=== PATIENT | female | born 1970 | race Caucasian/White ===

== ENCOUNTER 2016-09-14 07:54 | Emergency (ER) | payer OTHER ==
[2016-09-14 08:04] VITALS: BMI 22.0
--- NOTE | 2016-09-14 08:38 | PDOC ---
History of Present Illness - General Chief Complaint: Injury Stated Complaint: fall Time Seen by Provider: 09/14/16 07:57 History Source: Patient Exam Limitations: No Limitations - History of Present Illness Initial Comments: 09/14/16 08:37 46 year old female with past medical history of hypertension, borderline personality disorder, ADHD, polysubstance abuse including alcohol and cocaine brought in by EMS after a bystander called 911 for intoxication. [place]stander [place]. The patient appeared intoxicated. There was question whether the patient fell but the patient insists that she did not fall. However patient does endorse to me that she drink alcohol but cannot specify the amount. Patient is cooperative denies symptoms at this time. Past History - Past Medical History Allergies/Adverse Reactions: Allergies Allergy/AdvReac Type Severity Reaction Status Date / Time clarithromycin [From Biaxin] Allergy Verified 09/14/16 07:58 Home Medications: Ambulatory Orders Amlodipine Besylate [Norvasc -] 5 mg PO DAILY #30 tablet 06/20/14 Metoprolol Tartrate [Lopressor -] 25 mg PO BID #60 tablet 06/20/14 Thiamine HCl [Vitamin B1 -] 100 mg PO HS #30 tablet 06/20/14 Albuterol Sulfate Inhaler - [Ventolin Hfa Inhaler -] 2 inh PO Q4H 11/16/15 Alprazolam [Xanax] 0.25 mg PO BID 11/16/15 Dextroamphetamine/Amphetamine [Adderall 10 mg Tablet] 20 mg PO BID 11/16/15 Zolpidem Tartrate [Ambien] 10 mg PO HS #14 tablet MDD 10 11/17/15 Anemia: Yes Asthma: Yes Cancer: No Cardiac Disorders: No CVA: No COPD: No CHF: No Dementia: No Diabetes: No GI Disorders: No Disorders: No HTN: Yes (no med) Hypercholesterolemia: No Kidney Stones: No Liver Disease: No Suicide Attempt (Hx): No Seizures: Yes (June 2009 ([facility] Thyroid Disease: No - Surgical History Abdominal Surgery: Yes (ectopic rght in 1992 at [facility]) Appendectomy: No Cardiac Surgery: No Cholecystectomy: No Lung Surgery: No Neurologic Surgery: No Orthopedic Surgery: No - Immunization History Immunization Up to Date: Yes - Psycho/Social/Smoking Cessation Hx Anxiety: No Suicidal Ideation: No Smoking Status: No Smoking History: Current every day smoker Have you smoked in the past 12 months: Yes Number of Cigarettes Smoked Daily: 0 If you are a former smoker, when did you quit?: 5 years ago. Information on smoking cessation initiated: No 'Breaking Loose' booklet given: 06/16/14 Hx Alcohol Use: No Drug/Substance Use Hx: No Substance Use Type: Alcohol Hx Substance Use Treatment: Yes (DETOX) Review of Systems - Review of Systems Able to Perform ROS?: Yes Comments:: 09/14/16 08:37 GENERAL/CONSTITUTIONAL: No fever, weakness. +intoxication HEAD, EYES, EARS, NOSE AND THROAT: No change in vision. No ear pain or discharge. No sore throat. CARDIOVASCULAR: No chest pain or shortness of breath. RESPIRATORY: No cough, wheezing, or hemoptysis. GASTROINTESTINAL: No abdominal pain, nausea, vomiting, diarrhea, or decreased PO intolerance. GENITOURINARY: No dysuria, frequency, or change in urination. MUSCULOSKELETAL: No joint or muscle swelling or pain. No neck or back pain. SKIN: No rash NEUROLOGIC: No headache, vertigo, loss of consciousness, or change in strength/ sensation. ENDOCRINE: No increased thirst. No abnormal weight change. HEMATOLOGIC/LYMPHATIC: No anemia, easy bleeding, or history of blood clots. ALLERGIC/IMMUNOLOGIC: No hives or skin allergy. *Physical Exam - Vital Signs Last Vital Signs Temp Pulse Resp BP Pulse Ox 97.7 F 107 H 18 120/89 97 09/14/16 07:55 09/14/16 08:16 09/14/16 08:16 09/14/16 08:16 09/14/16 08:16 - Physical Exam Comments: 09/14/16 08:37 GENERAL: no acute distress. +intoxicated. +alcohol on breath. HEAD: No signs of trauma EYES: PERRLA, EOMI, sclera anicteric, conjunctiva clear ENT: Auricles normal inspection, hearing grossly normal, nares patent, oropharynx clear without exudates. NECK: Normal ROM, supple, no lymphadenopathy, JVD, or masses LUNGS: Breath sounds equal, clear to auscultation bilaterally. No wheezes, and no crackles HEART: Regular rate and rhythm, normal S1 and S2, no murmurs, rubs or gallops ABDOMEN: Soft, nontender, normoactive bowel sounds. No guarding, no rebound. No masses EXTREMITIES: Normal range of motion, no edema. No clubbing or cyanosis. No cords, erythema, or tenderness NEUROLOGICAL: Cranial nerves II through XII grossly intact. +mildly slurred speech SKIN: Warm, Dry, normal turgor, no rashes or lesions noted. ED Treatment Course - LABORATORY CBC & Chemistry Diagram: 09/14/16 09:50 09/14/16 09:50 Medical Decision Making - Medical Decision Making 09/14/16 08:38 Vital Signs Temp Pulse Resp BP Pulse Ox 97.7 F 107 H 18 120/89 97 09/14/16 07:55 09/14/16 08:16 09/14/16 08:16 09/14/16 08:16 09/14/16 08:16 The patient is clinically alcohol intoxicated. Her physical exam demonstrates no acute trauma or injury at this time. We'll let the patient sober up and reassess. Patient is sober and has no complaints and can ambulate, patient can be discharged home. 09/14/16 15:51 CBC, BMP 09/14/16 09:50 09/14/16 09:50 CMP Sodium 138 mmol/L (136-145) 09/14/16 09:50 Potassium 3.1 mmol/L (3.5-5.1) L 09/14/16 09:50 Chloride 98 mmol/L (98-107) 09/14/16 09:50 Carbon Dioxide 28 mmol/L (22-28) 09/14/16 09:50 Anion Gap 12 (8-16) 09/14/16 09:50 BUN 15 mg/dl (7-18) D 09/14/16 09:50 Creatinine 0.5 mg/dl (0.6-1.3) L 09/14/16 09:50 Creat Clearance w eGFR > 60 (>60) 09/14/16 09:50 Random Glucose 107 mg/dl (74-106) H 09/14/16 09:50 Calcium 8.6 mg/dl (8.4-10.2) 09/14/16 09:50 Total Bilirubin 0.4 mg/dl (0.2-1.0) D 09/14/16 09:50 AST 193 U/L (10-42) H D 09/14/16 09:50 ALT 70 U/L (10-40) H D 09/14/16 09:50 Alkaline Phosphatase 84 U/L (32-92) 09/14/16 09:50 Total Protein 6.3 g/dl (6.4-8.3) L 09/14/16 09:50 Albumin 3.7 g/dl (3.5-5.0) 09/14/16 09:50 Pt given potassium. Alcohol level elevated high 300s. Pt has been observed for 8 hours and is now clinically sober and ambulates. Pt counselled regarding her liver function enzymes which is likely secondary to alcohol. Alcohol cessation counselled. The patient is now steady and on her feet. Will d/c home with PMD follow up. Pt denies any pain or injuries at this time. *DC/Admit/Observation/Transfer Diagnosis at time of Disposition: Alcohol intoxication Qualifiers: Complication of substance-induced condition: uncomplicated Qualified Code(s): F10.920 - Alcohol use, unspecified with intoxication, uncomplicated - Discharge Dispostion Disposition: HOME Condition at time of disposition: Improved Admit: No - Patient Instructions Printed Discharge Instructions: DI for Alcohol Abuse Additional Instructions: Your blood work is starting to show some liver problems from alcohol. Please try to minimize your alcohol drinking. Follow up with your doctor.
[2016-09-14] MEDS ORDERED: LORAZEPAM CARPU-JECT 2 MG/ML DISP.SYRIN IVPUSH ONE (09:41)
[2016-09-14] MEDS ORDERED: FOLIC ACID INJECTION - 1 MG, THIAMINE HCL 100 MG, MULTIVIT INJECTION ADULT 10 ML in SOD... IVPB ONE (09:41)
[2016-09-14] MEDS ORDERED: LORAZEPAM CARPU-JECT 2 MG/ML DISP.SYRIN ONE (09:57)
[2016-09-14 10:31] LABS: BASOPHIL 1.4 % (0-2.0); EOSINOPHIL 1.9 % (0-4.5); MCH 39.7 pg (25.7-33.7); MCHC 36.9 g/dl (32.0-36.0); MEAN CELL VOLUME 107.5 fl (80-96); MEAN PLT VOLUME 6.6 fl (7.5-11.1); NEUTROPHILS 39.4 % (42.8-82.8); PLATELET COUNT 149 K/MM3 (134-434); RDW 15.9 % (11.6-15.6); WHITE BLOOD COUNT 4.1 K/mm3 (4.0-10.8)
[2016-09-14 10:38] LABS: ALBUMIN 3.7 g/dl (3.5-5.0); ALK PHOS 84 U/L (32-92); ANION GAP 12 (8-16); BILIRUBIN,TOTAL 0.4 mg/dl (0.2-1.0); CALCIUM 8.6 mg/dl (8.4-10.2); CO2 28 mmol/L (22-28); CREATININE 0.5 mg/dl (0.6-1.3); GLUCOSE,RANDOM 107 mg/dl (74-106); SGOT/AST 193 U/L (10-42); SGPT/ALT 70 U/L (10-40); TOT PROT 6.3 g/dl (6.4-8.3)
[2016-09-14 10:51] LABS: PH,URINE 6.5 (4.5-8); URINE APPEARANCE Clear; URINE BILIRUBIN Negative (NEGATIVE); URINE BLOOD Negative (NEGATIVE); URINE GLUCOSE (UA) Negative (NEGATIVE); URINE KETONE Negative (NEGATIVE); URINE LEUK ESTERASE Negative (NEGATIVE); URINE NITRITE Negative (NEGATIVE); URINE PROTEIN Negative (NEGATIVE); URINE UROBILINOGEN 0.2 E.U/dl (0.2-1.0)
[2016-09-14 10:54] LABS: URINE COLOR YELLOW
[2016-09-14] MEDS ORDERED: POTASSIUM CHLORIDE TABS 20 MEQ TABLET.ER (FP) PO ONE ×2 (11:13→11:28)
[2016-09-14 11:58] LABS: URINE MARIJUANA THC NEGATIVE ng/ml (CUTOFF=50)
[2016-09-14 13:46] VITALS: TEMP 98.3
[2016-09-14 16:22] VITALS: BP 116/80; PULSE 100
--- NOTE | 2016-09-15 08:30 | EKG ---
Test Reason : Blood Pressure : / mmHG Vent. Rate : 098 BPM Atrial Rate : 098 BPM P-R Int : 172 ms QRS Dur : 088 ms QT Int : 382 ms P-R-T Axes : 054 055 062 degrees QTc Int : 487 ms NORMAL SINUS RHYTHM MINIMAL VOLTAGE CRITERIA FOR LVH, MAY BE NORMAL VARIANT PROLONGED QT ABNORMAL ECG WHEN COMPARED WITH ECG OF 16-JUN-2014 01:09, NO SIGNIFICANT CHANGE WAS FOUND Confirmed by NETTA ENAMORADO MD ([id number]) on 09/15/2016 8:30:18 AM Referred By: BETH FULTON Confirmed By:NETTA ENAMORADO MD
== END 2016-09-14 16:20 | disposition home or self-care (01) ==
LOC: FER 07:54
PROC: 3E033GC Introduction of Other Therapeutic Substance into Peripheral Vein, Percutaneous Approach (ICD-10-PCS; principal; 2016-09-14)
PROC: 3E033NZ Introduction of Analgesics, Hypnotics, Sedatives into Peripheral Vein, Percutaneous Approach (ICD-10-PCS; 2016-09-14)
DX: F10.920 Alcohol use, unspecified with intoxication, uncomplicated (principal); I10 Essential (primary) hypertension; F60.3 Borderline personality disorder; F90.9 Attention-deficit hyperactivity disorder, unspecified type; F19.10 Other psychoactive substance abuse, uncomplicated; J45.909 Unspecified asthma, uncomplicated
CPT/HCPCS: 36415; 80053; 80307; 81003; 85025; 93005; 96365; 96375; 99284-25

== ENCOUNTER 2016-10-11 18:49 | Emergency (ER) | payer OTHER ==
[2016-10-11 19:06] VITALS: BMI 17.2
--- NOTE | 2016-10-11 19:41 | PDOC ---
Attending Attestation - Resident Resident Name: Get Mckeon - HPI HPI: 10/11/16 19:40 46 yo female sent from [facility] detox because they were concerned about her reported vomiting and possible alcohol withdrawal 10/11/16 21:24 - Physicial Exam PE: 10/11/16 21:26 46 yo female sent from [facility] for tx for vomiting. History of alcoholism HEENT no scalp lacerations.no ecchymosis lungs cta b/l cvs tachycardia abd flat ext old bruising to rt [place] neuro alert and conversant,ambulatory - Medical Decision Making 10/11/16 21:28 IMP alcohol abuse,vomiting. [facility] note states that they had no female beds tonight plan IVF,banana bag/labs
[2016-10-11] MEDS ORDERED: FOLIC ACID INJECTION - 1 MG, THIAMINE HCL 100 MG, MULTIVIT INJECTION ADULT 10 ML in SOD... IVPB ONE (20:04)
--- NOTE | 2016-10-11 20:17 | PDOC ---
History of Present Illness - General Chief Complaint: Alcohol intoxication Stated Complaint: ALCHOHOL WITHDRAWL Time Seen by Provider: 10/11/16 19:42 History Source: Patient Exam Limitations: No Limitations - History of Present Illness Initial Comments: 10/11/16 20:12 Patient is a 46 F with a PMH of HTN, borderline personality disorder, ADHD, and polysubstance abuse who presents to the ED with complaints of alcohol withdrawal. The patient states that she drank half a glass of wine today and threw it up. She also drank 2 glasses of wine Tuesday and threw that up. She states that the last drink she has had without throwing up was half a liter of vodka on Tuesday. She also states that she has not eaten since Tuesday. She says she has a place to go home to [facility]. Patient has NBNB vomitus and has no blood in her stool. She also is complaining of diffuse cramps. Allergies: clarithromycin, seasonal Social: Does not smoke or use recreational drugs. She is an alcoholic Surgeries: ectopic 10 years ago Past History - Past Medical History Allergies/Adverse Reactions: Allergies Allergy/AdvReac Type Severity Reaction Status Date / Time clarithromycin [From Biaxin] Allergy Verified 10/11/16 19:06 Home Medications: Ambulatory Orders Amlodipine Besylate [Norvasc -] 5 mg PO DAILY #30 tablet 06/20/14 Metoprolol Tartrate [Lopressor -] 25 mg PO BID #60 tablet 06/20/14 Thiamine HCl [Vitamin B1 -] 100 mg PO HS #30 tablet 06/20/14 Albuterol Sulfate Inhaler - [Ventolin Hfa Inhaler -] 2 inh PO Q4H 11/16/15 Alprazolam [Xanax] 0.25 mg PO BID 11/16/15 Dextroamphetamine/Amphetamine [Adderall 10 mg Tablet] 20 mg PO BID 11/16/15 Zolpidem Tartrate [Ambien] 10 mg PO HS #14 tablet MDD 10 11/17/15 Anemia: Yes Asthma: Yes Cancer: No Cardiac Disorders: No CVA: No COPD: No CHF: No Dementia: No Diabetes: No GI Disorders: No Disorders: No HTN: Yes (no med) Hypercholesterolemia: No Kidney Stones: No Liver Disease: No Suicide Attempt (Hx): No Seizures: Yes (June 2009 ([facility])) Thyroid Disease: No - Surgical History Abdominal Surgery: Yes (ectopic rght in 1992 at [facility]) Appendectomy: No Cardiac Surgery: No Cholecystectomy: No Lung Surgery: No Neurologic Surgery: No Orthopedic Surgery: No - Immunization History Immunization Up to Date: Yes - Psycho/Social/Smoking Cessation Hx Anxiety: No Suicidal Ideation: No Smoking Status: No Smoking History: Never smoked Have you smoked in the past 12 months: No Number of Cigarettes Smoked Daily: 0 If you are a former smoker, when did you quit?: 5 years ago. Information on smoking cessation initiated: No 'Breaking Loose' booklet given: 06/16/14 Hx Alcohol Use: No Drug/Substance Use Hx: No Substance Use Type: Alcohol Hx Substance Use Treatment: Yes (DETOX) Review of Systems - Review of Systems Able to Perform ROS?: Yes Is the patient limited Thai proficient: No Constitutional: Yes: Chills, Weakness. No: Fever Respiratory: No: Shortness of Breath Cardiac (ROS): No: Chest Pain ABD/GI: Yes: Nausea, Vomiting Neurological: No: Headache, Numbness, Tingling *Physical Exam - Vital Signs Last Vital Signs Temp Pulse Resp BP Pulse Ox 98.6 F 118 H 22 125/94 100 10/11/16 19:01 10/11/16 19:01 10/11/16 19:01 10/11/16 19:01 10/11/16 19:01 - Physical Exam General Appearance: Yes: Nourished, Mild Distress Respiratory/Chest: positive: Lungs Clear, Normal Breath Sounds. negative: Chest Tender, Accessory Muscle Use Cardiovascular: positive: Regular Rhythm, S1, S2, Tachycardia Gastrointestinal/Abdominal: positive: Flat, Soft. negative: Tender Integumentary: positive: Dry, Warm Neurologic: positive: Normal Mood/Affect, Motor Strength 5/5 ED Treatment Course - LABORATORY CBC & Chemistry Diagram: 10/11/16 21:12 10/12/16 00:20 Medical Decision Making - Medical Decision Making 10/11/16 20:18 Patient is a 46F with a PMH of alcoholism, HTN, polysubstance abuse who presents with weakness and vomiting. I have ordered a CBC, CMP, and a banana bag. I will monitor for results and update patient. I have attempted a food and liquid PO challenge. The patient states that she can't eat but she's drinking the apple juice with no problem. 10/12/16 00:15 Patient remains tachycardic in 110-120. However, looking back at previous charts , the patient has been like this for the past few years. I will repeat labs and monitor patient clinically. 10/12/16 06:47 Patient signed out to day team. Pending 8 am phone call for detox facility. *DC/Admit/Observation/Transfer Diagnosis at time of Disposition: Alcohol withdrawal Qualifiers: Complication of substance-induced condition: uncomplicated Qualified Code(s): F10.230 - Alcohol dependence with withdrawal, uncomplicated - Discharge Dispostion Condition at time of disposition: Stable
[2016-10-11] MEDS ORDERED: chlordiazePOXIDE HCL 25 MG CAPSULE PO ONE (21:12)
[2016-10-11 21:18] LABS: MCH 36.5 pg (25.7-33.7); MCHC 33.2 g/dl (32.0-36.0); MEAN CELL VOLUME 109.9 fl (80-96); MEAN PLT VOLUME 7.8 fl (7.5-11.1); RDW 15.1 % (11.6-15.6); WHITE BLOOD COUNT 8.3 K/mm3 (4.0-10.0)
[2016-10-11] MEDS ORDERED: chlordiazePOXIDE HCL 25 MG CAPSULE ONE ×2 (21:48→21:49)
[2016-10-11 21:52] LABS: ALBUMIN 4.7 g/dl (3.4-5.0); ALK PHOS 105 U/L (45-117); ANION GAP 24 (8-16); BILIRUBIN,TOTAL 1.7 mg/dL (0.2-1.0); CALCIUM 7.5 mg/dL (8.5-10.1); CO2 14 mmol/L (21-32); CREATININE 1.3 mg/dL (0.55-1.02); GLUCOSE,RANDOM 112 mg/dL (74-106); SGOT/AST 157 U/L (15-37); SGPT/ALT 68 U/L (12-78); TOT PROT 9.3 g/dl (6.4-8.2)
[2016-10-11] MEDS ORDERED: SODIUM CHLORIDE 0.9% 1000 ML INFUS.BAG IV ONE (21:57)
[2016-10-11] MEDS ORDERED: MAGNESIUM SULF 50% (8.12 MEQ/2 ML-1 GM VIAL) IVPB ONE (21:58)
[2016-10-11 22:13] LABS: ANISOCYTOSIS 2+; PLATELET COMMENT2 RARE GIANT PLTS; PLATELET COUNT 81 K/MM3 (134-434); PLATELET ESTIMATE DECREASED (NORMAL)
[2016-10-12 01:10] LABS: ALBUMIN 3.8 g/dl (3.4-5.0); ANION GAP 21 (8-16); BILIRUBIN,TOTAL 1.4 mg/dL (0.2-1.0); CO2 15 mmol/L (21-32); GLUCOSE,RANDOM 86 mg/dL (74-106); SGOT/AST 125 U/L (15-37); SGPT/ALT 55 U/L (12-78); TOT PROT 7.4 g/dl (6.4-8.2)
[2016-10-12 01:11] LABS: ALK PHOS 86 U/L (45-117)
[2016-10-12 01:15] LABS: CALCIUM 6.4 mg/dL (8.5-10.1)
[2016-10-12] MEDS ORDERED: POTASSIUM CHLORIDE TABS 20 MEQ TABLET.ER (FP) PO ONE ×2 (01:17→03:19)
[2016-10-12] MEDS ORDERED: CALCIUM GLUCONATE 10% - 1,000 MG/10 ML VIAL IVPB ONE (02:30)
[2016-10-12] MEDS ORDERED: CALCIUM GLUCONATE 10% - 1,000 MG/10 ML VIAL ONE (03:19)
--- NOTE | 2016-10-12 03:38 | PDOC ---
*Physical Exam - Vital Signs Last Vital Signs Temp Pulse Resp BP Pulse Ox 99.2 F 118 H 22 135/89 100 10/11/16 21:54 10/11/16 21:54 10/11/16 21:54 10/11/16 22:49 10/11/16 21:54 ED Treatment Course - LABORATORY CBC & Chemistry Diagram: 10/11/16 21:12 10/12/16 00:20 - ADDITIONAL ORDERS Additional order review: Laboratory Results 10/12/16 10/11/16 10/11/16 00:20 23:00 21:12 Sodium 134 L 129 L Potassium 3.2 L 3.5 D Chloride 98 91 L Carbon Dioxide 15 L 14 L D Anion Gap 21 H 24 H BUN 7 8 D Creatinine 1.0 D 1.3 H D Creat Clearance w eGFR 59.96 44.29 Random Glucose 86 D 112 H Calcium 6.4 L* 7.5 L Magnesium 1.0 L D Total Bilirubin 1.4 H 1.7 H D AST 125 H D 157 H ALT 55 68 D Alkaline Phosphatase 86 105 D Total Protein 7.4 D 9.3 H D Albumin 3.8 4.7 D Lipase 365 10/11/16 21:12 RBC 3.21 L MCV 109.9 H MCHC 33.2 RDW 15.1 MPV 7.8 - Medications Given in the ED: ED Medications Discontinued Medications Generic Name Dose Route Start Last Admin Trade Name Neoq PRN Reason Stop Dose Admin Calcium Gluconate 1,000 mg 10/12/16 02:30 10/12/16 03:18 Calcium Gluconate 10% - IVPB 10/12/16 02:31 1,000 mg ONCE ONE Administration Chlordiazepoxide HCl 50 mg 10/11/16 21:12 10/11/16 21:48 Librium - PO 10/11/16 21:13 50 mg ONCE ONE Administration Magnesium Sulfate 2 gm 10/11/16 21:58 10/11/16 22:25 Magnesium Sulfate IVPB 10/11/16 21:59 2 gm ONCE ONE Administration Potassium Chloride 40 meq 10/12/16 01:17 10/12/16 03:22 K-Dur - PO 10/12/16 01:18 40 meq ONCE ONE Administration Sodium Chloride 1,000 ml 10/11/16 21:57 10/11/16 22:12 Normal Saline - IV 10/11/16 21:58 1,000 ml ONCE ONE Administration Medical Decision Making - Medical Decision Making Pt endorsed to me by Dr. Lynne at 2am shift change. No beds available in [facility] at present. Will d/w case management in the morning. Also of note, patient with tachycardia that has been long-standing on many prior visits. *DC/Admit/Observation/Transfer Diagnosis at time of Disposition: Alcohol use with intoxication, Alcohol dependence with uncomplicated withdrawal Cocaine dependence Qualifiers: Substance use status: uncomplicated Qualified Code(s): F14.20 - Cocaine dependence, uncomplicated - Discharge Dispostion Condition at time of disposition: Stable
--- NOTE | 2016-10-12 06:54 | PDOC ---
*Physical Exam - Vital Signs Last Vital Signs Temp Pulse Resp BP Pulse Ox 99.2 F 113 H 14 135/89 99 10/11/16 21:54 10/12/16 05:39 10/12/16 05:39 10/11/16 22:49 10/12/16 05:39 - Physical Exam Comments: 10/12/16 06:56 General Appearance: Nourished. No Apparent Distress Respiratory/Chest: Lungs Clear, Normal Breath Sounds. No Crackles, Rales, Rhonchi, Wheezing Cardiovascular: Regular Rhythm, Tachycardia. No Murmur, Gallop/S3, Gallop/S4 Gastrointestinal/Abdominal: Normal Bowel Sounds, Soft. No Guarding, Rebound, Tenderness Extremity: Normal Capillary Refill Integumentary: Normal Color, Dry, Warm Neurologic: Fully Oriented, Alert, Normal Mood/Affect, Normal Response ED Treatment Course - LABORATORY CBC & Chemistry Diagram: 10/11/16 21:12 10/12/16 08:40 - ADDITIONAL ORDERS Additional order review: Laboratory Results 10/12/16 10/11/16 10/11/16 00:20 23:00 21:12 Sodium 134 L 129 L Potassium 3.2 L 3.5 D Chloride 98 91 L Carbon Dioxide 15 L 14 L D Anion Gap 21 H 24 H BUN 7 8 D Creatinine 1.0 D 1.3 H D Creat Clearance w eGFR 59.96 44.29 Random Glucose 86 D 112 H Calcium 6.4 L* 7.5 L Magnesium 1.0 L D Total Bilirubin 1.4 H 1.7 H D AST 125 H D 157 H ALT 55 68 D Alkaline Phosphatase 86 105 D Total Protein 7.4 D 9.3 H D Albumin 3.8 4.7 D Lipase 365 10/11/16 21:12 RBC 3.21 L MCV 109.9 H MCHC 33.2 RDW 15.1 MPV 7.8 - Medications Given in the ED: ED Medications Discontinued Medications Generic Name Dose Route Start Last Admin Trade Name Freq PRN Reason Stop Dose Admin Calcium Gluconate 1,000 mg 10/12/16 02:30 10/12/16 03:18 Calcium Gluconate 10% - IVPB 10/12/16 02:31 1,000 mg ONCE ONE Administration Chlordiazepoxide HCl 50 mg 10/11/16 21:12 10/11/16 21:48 Librium - PO 10/11/16 21:13 50 mg ONCE ONE Administration Folic Acid 1 mg/ Thiamine HCl 1,000 mls @ 125 mls/hr 10/11/16 20:04 10/11/16 21 :10 100 mg/ Multivitamins/Minerals IVPB 10/12/16 04:03 125 mls/hr 10 ml/ Sodium Chloride ONCE ONE Administration Magnesium Sulfate 2 gm 10/11/16 21:58 10/11/16 22:25 Magnesium Sulfate IVPB 10/11/16 21:59 2 gm ONCE ONE Administration Potassium Chloride 40 meq 10/12/16 01:17 10/12/16 03:22 K-Dur - PO 10/12/16 01:18 40 meq ONCE ONE Administration Sodium Chloride 1,000 ml 10/11/16 21:57 10/11/16 22:12 Normal Saline - IV 10/11/16 21:58 1,000 ml ONCE ONE Administration Progress Note - Progress Note Progress Note: Received sign out from Dr. Mckeon. Patient is a 46 year old female with a history of alcoholism who presents for alcoholic detox. Patient is currently stable pending call to [facility] at 8am for transfer. Medical Decision Making - Medical Decision Making 10/12/16 07:37 CMP demonstrated a low calcium of 6.4. We will recheck a cmp to confirm. 10/12/16 13:07 Patient's repeat cmp demonstrated a calcium of 7.0. We feel comfortable with discharging the patient to a detox facility. Discussed the patient with Dr. Manuel and the patient was accepted to [facility]. *DC/Admit/Observation/Transfer Diagnosis at time of Disposition: Alcohol withdrawal Qualifiers: Complication of substance-induced condition: uncomplicated Qualified Code(s): F10.230 - Alcohol dependence with withdrawal, uncomplicated - Discharge Dispostion Disposition: HOME Condition at time of disposition: Stable - Patient Instructions Printed Discharge Instructions: DI for Alcohol Abuse Additional Instructions: We will be discharging you for immediate transfer to [facility] for further Detox treatment. Return to the ER if you experience worsening symptoms. - Attestations Physician Attestion: 10/12/16 10:49 I, Dr. Guero Ortez, attest that this document has been prepared under my direction and personally reviewed by me in its entirety. I further attest, that it accurately reflects all work, treatment, procedures and medical decision -making performed by me.
[2016-10-12 09:24] LABS: ALBUMIN 3.8 g/dl (3.4-5.0); ANION GAP 13 (8-16); BILIRUBIN,TOTAL 1.4 mg/dL (0.2-1.0); CO2 23 mmol/L (21-32); CREATININE 0.9 mg/dL (0.55-1.02); GLUCOSE,RANDOM 96 mg/dL (74-106); SGOT/AST 108 U/L (15-37); SGPT/ALT 50 U/L (12-78); TOT PROT 7.6 g/dl (6.4-8.2)
[2016-10-12 09:25] LABS: ALK PHOS 87 U/L (45-117)
[2016-10-12] MEDS ORDERED: CALCIUM CARBONATE 650 MG TABLET PO SCH (10:00)
[2016-10-12 10:59] VITALS: BP 130/91; PULSE 104; TEMP 97.6
== END 2016-10-12 11:02 | disposition other institution (70) ==
LOC: JER 18:49
PROC: 3E0337Z Introduction of Electrolytic and Water Balance Substance into Peripheral Vein, Percutaneous Approach (ICD-10-PCS; principal; 2016-10-11)
PROC: 3E033GC Introduction of Other Therapeutic Substance into Peripheral Vein, Percutaneous Approach (ICD-10-PCS; 2016-10-11)
DX: F10.230 Alcohol dependence with withdrawal, uncomplicated (principal); F14.20 Cocaine dependence, uncomplicated; I10 Essential (primary) hypertension; G40.909 Epilepsy, unspecified, not intractable, without status epilepticus; E83.51 Hypocalcemia
CPT/HCPCS: 36415; 80053; 83690; 83735; 85027; 96360; 96361; 96374; 99285-25

== ENCOUNTER 2016-10-12 11:18 | Inpatient (IN) | payer OTHER ==
[2016-10-12 13:09] VITALS: BMI 17.2
--- NOTE | 2016-10-12 15:37 | HP ---
CIWA Score - CIWA Score Nausea/Vomitin Muscle Tremors: 3 Anxiety: 3 Agitation: 3 Paroxysmal Sweats: 1-Minimal Palms Moist Orientation: 0-Oriented Tacttile Disturbances: 2-Mild Itch/Numbness/Burn Auditory Disturbances: 2-Mild Harshness/Frighten Visual Disturbances: 2-Mild Sensitivity Headache: 2-Mild CIWA-Ar Total Score: 21 Admission ROS BHS - HPI Chief Complaint: i need help to stop drinking alcohol Allergies/Adverse Reactions: Allergies Allergy/AdvReac Type Severity Reaction Status Date / Time clarithromycin [From Biaxin] Allergy Verified 10/12/16 15:26 History of Present Illness: this 46 years old female with alcohol dependence ,seeking help to stop drinking alcohol,last treatment rehab in [facility] in 02/10 multiple admissions in detox but keep relapsing last seizure 3 weeks ago admitted for 1 day with head injury longest period of sobriety 9 months - Ebola screening Have you traveled outside of the country in the last 21 days: No Have you had contact with anyone from an Ebola affected area: No Have you been sick,other than usual withdrawal symptoms: No - Review of Systems Constitutional: Loss of Appetite, Malaise, Night Sweats, Changes in sleep, Weakness, Unintentional Wgt. Loss EENT: reports: Nose Congestion Respiratory: reports: No Symptoms reported Cardiac: reports: Palpitations GI: reports: Diarrhea, Nausea, Vomiting, Abdominal cramping : reports: No Symptoms Reported Musculoskeletal: reports: Back Pain, Muscle Pain Integumentary: reports: Dryness Neuro: reports: Headache, Tremors Endocrine: reports: No Symptoms Reported Hematology: reports: No Symptoms Reported Psychiatric: reports: Anxious Patient History - Patient Medical History Hx Anemia: Yes (no iron) Hx Asthma: Yes (on albuterol inhaler) Hx Chronic Obstructive Pulmonary Disease (COPD): No Hx Cancer: No Hx Cardiac Disorders: No Hx Congestive Heart Failure: No Hx Hypertension: Yes (no med) Hx Hypercholesterolemia: No Hx Pacemaker: No HX Cerebrovascular Accident: No Hx Seizures: Yes (last 3 weeks ago) Hx Dementia: No Hx Diabetes: No Hx Gastrointestinal Disorders: No Hx Liver Disease: No Hx Genitourinary Disorders: No Hx Sexually Transmitted Disorders: No Hx Renal Disease (ESRD): No Hx Thyroid Disease: No Hx Human Immunodeficiency Virus (HIV): No (04/13 negative) Hx Hepatitis C: No Hx Depression: Yes (anxiety,) Hx Suicide Attempt: No Hx Bipolar Disorder: No Hx Schizophrenia: No Other Medical History: no suicidal,no homicidal - Patient Surgical History Past Surgical History: Yes Hx Neurologic Surgery: No Hx Cataract Extraction: No Hx Cardiac Surgery: No Hx Lung Surgery: No Hx Breast Surgery: No Hx Breast Biopsy: No Hx Abdominal Surgery: Yes (ectopic rght in 1992 at [facility]) Hx Appendectomy: No Hx Cholecystectomy: No Hx Genitourinary Surgery: No Hx Section: No Hx Orthopedic Surgery: No Hx Hysterectomy: No Anesthesia Reaction: No - PPD History Previous Implant?: Yes Documented Results: Negative w/proof Implanted On Prior [facility] Admission?: Yes Date: 06/18/14 PPD to be Administered?: Yes - Reproductive History Patient is a Female of Child Bearing Age (11 -55 yrs old): Yes Last Menstrual Period: 10/09/16 Patient : No - Smoking Cessation Smoking history: Never smoked Have you smoked in the past 12 months: No Aproximately how many cigarettes per day: 0 If you are a former smoker, when did you quit?: 5 years ago. Hx Chewing Tobacco Use: No - Substance & Tx. History Hx Alcohol Use: Yes Hx Substance Use: No Substance Use Type: Alcohol Hx Substance Use Treatment: Yes ([facility] in 02/10) - Substances Abused Alcohol Route: Oral Frequency: Daily Amount used: 1/2 LITER VODKA OR RUM Age of first use: 13 Date of Last Use: 10/12/16 Family Disease History - Family Disease History Family Disease History: CA: Mother (alcohol,,BREAST & OVARIAN), Other: Father (alcohol,), Mother, Brother (alcohol) Admission Physical Exam S - Vital Signs Vital Signs: Vital Signs - 24 hr 10/12/16 13:06 Temperature 99.0 F Pulse Rate 113 H Respiratory 18 Rate Blood Pressure 143/99 - Physical General Appearance: Yes: Moderate Distress, Tremorous, Irritable, Sweating, Anxious HEENTM: Yes: Normal ENT Inspection, Normocephalic, MICHAEL, Pharynx Normal Respiratory: Yes: Within Normal Limits, Lungs Clear, Normal Breath Sounds Neck: Yes: Within Normal Limits Breast: Yes: Breast Exam Deferred Cardiology: Yes: Within Normal Limits, Regular Rhythm, Regular Rate, S1, S2 Abdominal: Yes: Within Normal Limits, Normal Bowel Sounds, Non Tender, Flat, Soft Genitourinary: Yes: Within Normal Limits Back: Yes: Muscle Spasm Musculoskeletal: Yes: Back pain, Muscle Pain Extremities: Yes: Tremors Neurological: Yes: hand binder 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 II-XII NML intact, Fully Oriented, Alert, Motor Strength 5/5 Integumentary: Yes: Dry Lymphatic: Yes: Within Normal Limits - Diagnostic (1) Alcohol dependence with uncomplicated withdrawal Current Visit: Yes Status: Acute (2) Seizure Current Visit: Yes Status: Acute (3) Weight decreased Current Visit: No Status: Acute (4) Asthma Current Visit: No Status: Chronic Qualifiers: Asthma severity: mild intermittent Asthma complication type: uncomplicated Qualified Code(s): J45.20 - Mild intermittent asthma, uncomplicated (5) Syncope Current Visit: No Status: Suspected (6) ADHD (attention deficit hyperactivity disorder) Current Visit: No Status: Acute (7) Anxiety and depression Current Visit: No Status: Acute (8) Essential (primary) hypertension Current Visit: No Status: Acute Cleared for Admission S - Detox or Rehab [facility] Level of Care: Medically Managed Detox Regimen/Protocol: Librium [facility] Breath Alcohol Content Breath Alcohol Content: 0 Urine Pregancy Test - Result Urine Test Results: Negative- NO Line Present Urine Drug Screen - Results Drug Screen Negative: No Urine Drug Screen Results: BZO-Benzodiazepines
[2016-10-12] MEDS ORDERED: IBUPROFEN 400 MG TABLET (FP) PO PRN (15:48)
[2016-10-12] MEDS ORDERED: hydrOXYzine PAMOATE 25 MG CAPSULE (FP) PO PRN (15:48)
[2016-10-12] MEDS ORDERED: P-EPHED 60MG/TRIPROLIDI 2.5MG TABLET PO PRN (15:48)
[2016-10-12] MEDS ORDERED: MAGNESIUM HYDROX 2400MG/30ML ORAL SUSPENSION 30 ML CUP PO PRN (15:48)
[2016-10-12] MEDS ORDERED: ACETAMINOPHEN 325 MG TABLET (FP) PO PRN (15:48)
[2016-10-12] MEDS ORDERED: LOPERAMIDE HCL 2 MG CAPSULE PO PRN (15:48)
[2016-10-12] MEDS ORDERED: MAGNESIUM CITRATE 300 ML BOTTLE PO PRN (15:48)
[2016-10-12] MEDS ORDERED: MAG HYDROX/AL HYDROX/SIMETH 30 ML UNIT-DOSE CUP PO PRN (15:48)
[2016-10-12] MEDS ORDERED: guaiFENesin/D-METHORPHAN HB 10 ML UNIT-DOSE CUPS PO PRN (15:48)
[2016-10-12] MEDS ORDERED: MENTHOL/PHENOL 1 EACH UD MM PRN (15:48)
[2016-10-12] MEDS ORDERED: ALBUTEROL SO4 6.7 GM HFA INHALER IH PRN (15:59)
[2016-10-12] MEDS ORDERED: chlordiazePOXIDE HCL 25 MG CAPSULE PO PRN (17:31)
[2016-10-12] MEDS ORDERED: chlordiazePOXIDE HCL 25 MG CAPSULE PO ONE (18:00)
[2016-10-12 19:58] LABS: URINE APPEARANCE SLCLOUDY; URINE BILIRUBIN NEGATIVE (NEGATIVE); URINE COLOR YELLOW; URINE GLUCOSE (UA) 2+ (NEGATIVE); URINE KETONE 1+ (NEGATIVE); URINE LEUK ESTERASE NEGATIVE (NEGATIVE); URINE NITRITE POSITIVE (NEGATIVE); URINE PROTEIN NEGATIVE (NEGATIVE); URINE UROBILINOGEN NEGATIVE mg/dL (0.2-1.0)
[2016-10-12 20:00] LABS: URINE BLOOD 2+ (NEGATIVE)
[2016-10-12 20:34] LABS: URINE MUCUS RARE; URINE RBC 1 /hpf (0-3); URINE WBC 4 /hpf (3-5)
[2016-10-12] MEDS: chlordiazePOXIDE HCL 25 MG CAPSULE PO SCH (22:12)
[2016-10-12] MEDS: THIAMINE HCL 100 MG TABLET (FP) PO SCH (22:12)
[2016-10-12] MEDS: diphenhydrAMINE HCL 50 MG CAPSULE PO PRN (22:14)
[2016-10-13] MEDS: chlordiazePOXIDE HCL 25 MG CAPSULE PO SCH ×4 (05:57→22:11)
--- NOTE | 2016-10-13 08:24 | CONSULT ---
[facility] Psychiatric Consult - Data Date of interview: 10/13/16 Admission source: [facility] Identifying data: This is 46 years old female with no psychiatric hospitalization history, multiple medical problems, intoxicated with: Alcohol Substance Abuse History: - Smoking Cessation. Smoking history: Never smoked. Have you smoked in the past 12 months: No. Aproximately how many cigarettes per day: 0. If you are a former smoker, when did you quit?: 5 years ago. Hx Chewing Tobacco Use: No. - Substance & Tx. History. Hx Alcohol Use: Yes. Hx Substance Use: No. Substance Use Type: Alcohol. Hx Substance Use Treatment: Yes ([facility] in 02/10) Medical History: Seizure history, Syncope hisotry, HTN, Weight loss history, Pancitopenia history, Asthma history, Psychiatric History: Patient reoports history of depression and anxiety, as per computer bthere is a history of Borderline personality disorder, reports no medications taking prior to admission Physical/Sexual Abuse/Trauma History: Denies Additional Comment: Observation. Detox Unit Care Protocol Mental Status Exam - Mental Status Exam Alert and Oriented to: Person Cognitive Function: Fair Patient Appearance: Unkempt Mood: Sad Affect: Flat Patient Behavior: Sedated Speech Pattern: Appropriate Voice Loudness: Mildly Soft/Quiet Thought Process: Circumstantial Thought Disorder: Being Controlled Hallucinations: Denies Suicidal Ideation: Denies Homicidal Ideation: Denies Insight/Judgement: Fair Sleep: Difficulty falling asleep Appetite: Weight loss Muscle strength/Tone: Mild Hypotonicity Gait/Station: Shuffling Additional Comments: Observation. Detox Unit Care Protocol Psychiatric Findings - Problem List ([facility] 1, 2,3) (1) ADHD (attention deficit hyperactivity disorder) Current Visit: No Status: Acute (2) Alcohol intoxication Current Visit: No Status: Acute Qualifiers: Complication of substance-induced condition: uncomplicated Qualified Code(s): F10.920 - Alcohol use, unspecified with intoxication, uncomplicated (3) Alcohol withdrawal Current Visit: No Status: Acute Qualifiers: Complication of substance-induced condition: uncomplicated Qualified Code(s): F10.230 - Alcohol dependence with withdrawal, uncomplicated (4) Anxiety and depression Current Visit: No Status: Acute (5) Anxiety disorder Current Visit: No Status: Acute (6) Drug-induced mood disorder Current Visit: No Status: Acute (7) Borderline personality disorder Current Visit: No Status: Suspected (8) Alcohol-induced anxiety disorder Current Visit: Yes Status: Acute (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 Detox Unit Care Protocol
--- NOTE | 2016-10-13 09:57 | PN ---
S CIWA - CIWA Score Nausea/Vomitin Muscle Tremors: 3 Anxiety: 3 Agitation: 2 Paroxysmal Sweats: 3 Orientation: 0-Oriented Tacttile Disturbances: 2-Mild Itch/Numbness/Burn Auditory Disturbances: 0-None Visual Disturbances: 0-None Headache: 0-None Present CIWA-Ar Total Score: 16 BHS Progress Note (SOAP) Subjective: interrupted sleep, sweats, shakes,dizziness Objective: 10/13/16 09:51 Vital Signs Temperature 98.1 F 10/13/16 06:32 Pulse Rate 95 H 10/13/16 06:32 Respiratory Rate 20 10/13/16 06:32 Blood Pressure 129/83 10/13/16 06:32 O2 Sat by Pulse Oximetry (%) Laboratory Tests 10/12/16 19:15 Urine Color Yellow Urine Appearance Slcloudy Urine pH 6.0 Ur Specific [place] 1.015 Urine Protein Negative Urine Glucose (UA) 2+ H Urine Ketones 1+ H Urine Blood 2+ H Urine Nitrite Positive Urine Bilirubin Negative Urine Urobilinogen Negative Ur Leukocyte Esterase Negative Urine RBC 1 Urine WBC 4 Ur Epithelial Cells Rare Urine Mucus Rare Laboratory Tests 10/12/16 19:15 Urine Color Yellow Urine Appearance Slcloudy Urine pH 6.0 Ur Specific [place] 1.015 Urine Protein Negative Urine Glucose (UA) 2+ H Urine Ketones 1+ H Urine Blood 2+ H Urine Nitrite Positive Urine Bilirubin Negative Urine Urobilinogen Negative Ur Leukocyte Esterase Negative Urine RBC 1 Urine WBC 4 Ur Epithelial Cells Rare Urine Mucus Rare pending labs pt aox3 lying in bed , irritable Assessment: 10/13/16 09:53 withdrawal sx;s 10/13/16 09:53 no seizures Plan: cont. detox increase fluids f/up pending labs
--- NOTE | 2016-10-13 10:07 | CONSULT ---
[facility] Psychiatric Consult - Data Date of interview: 10/13/16 Admission source: [facility] Identifying data: This is 46 years old female with no psychiatric hospitalization history [id number] with:Alcohol and Benzodiazepins, history of Opioids abuse as well Substance Abuse History: - Smoking Cessation. Smoking history: Never smoked. Have you smoked in the past 12 months: No. Aproximately how many cigarettes per day: 0. If you are a former smoker, when did you quit?: 5 years ago. Hx Chewing Tobacco Use: No. - Substance & Tx. History. Hx Alcohol Use: Yes. Hx Substance Use: No. Substance Use Type: Alcohol. Hx Substance Use Treatment: Yes ([facility] in 02/10) Medical History: Seizur ehistory, HTN, Weight loss, Asthma, Syncope history, Hypokalimia history Psychiatric History: ADHD history, ANXIETY AND DEPRESSION HISTORY, BORDERLINE PERSONALITY history Physical/Sexual Abuse/Trauma History: Denies, unclear Additional Comment: Observation. Detox Unit Carte Protocol Mental Status Exam - Mental Status Exam Alert and Oriented to: Person Cognitive Function: Fair Patient Appearance: Unkempt Mood: Nervous, Anxious Affect: Mood Congruent Patient Behavior: Aggressive, Guarded Speech Pattern: Pressured Voice Loudness: Mildly Loud Thought Process: Goal Oriented Thought Disorder: Being Controlled Hallucinations: Denies Suicidal Ideation: Denies Homicidal Ideation: Denies Insight/Judgement: Fair Sleep: Difficulty falling asleep Appetite: Weight loss Muscle strength/Tone: Normal Gait/Station: Normal Additional Comments: Observation. Detox Unit Carte Protocol Psychiatric Findings - Problem List ([facility] 1, 2,3) (1) ADHD (attention deficit hyperactivity disorder) Current Visit: No Status: Acute (2) Alcohol intoxication Current Visit: No Status: Acute Qualifiers: Complication of substance-induced condition: uncomplicated Qualified Code(s): F10.920 - Alcohol use, unspecified with intoxication, uncomplicated (3) Alcohol withdrawal Current Visit: No Status: Acute Qualifiers: Complication of substance-induced condition: uncomplicated Qualified Code(s): F10.230 - Alcohol dependence with withdrawal, uncomplicated (4) Anxiety and depression Current Visit: No Status: Acute (5) Anxiety disorder Current Visit: No Status: Acute (6) Drug-induced mood disorder Current Visit: No Status: Acute (7) Borderline personality disorder Current Visit: No Status: Suspected - Initial Treatment Plan Initial Treatment Plan: Observation. Detox Unit Carte Protocol
[2016-10-13 10:25] LABS: MCH 37.1 pg (25.7-33.7); MCHC 33.5 g/dl (32.0-36.0); MEAN CELL VOLUME 110.6 fl (80-96); MEAN PLT VOLUME 8.4 fl (7.5-11.1); PLATELET COUNT 56 K/MM3 (134-434); RDW 14.9 % (11.6-15.6); WHITE BLOOD COUNT 2.9 K/mm3 (4.0-10.0)
[2016-10-13] MEDS: amLODIPine BESYLATE 10 MG TABLET (FP) PO SCH ×3 (10:27→22:12)
[2016-10-13] MEDS: PRENATAL VITAMINS W/ FOLIC ACID TABLET (FP) PO SCH (10:27)
[2016-10-13 10:30] LABS: ALBUMIN 3.6 g/dl (3.4-5.0); ANION GAP 10 (8-16); CALCIUM 7.6 mg/dL (8.5-10.1); CO2 25 mmol/L (21-32); GLUCOSE,RANDOM 103 mg/dL (74-106); SGPT/ALT 46 U/L (12-78)
[2016-10-13 10:33] LABS: ALK PHOS 76 U/L (45-117); BILIRUBIN,TOTAL 0.8 mg/dL (0.2-1.0); CREATININE 0.7 mg/dL (0.55-1.02); SGOT/AST 93 U/L (15-37); TOT PROT 7.1 g/dl (6.4-8.2)
[2016-10-13] MEDS: POTASSIUM CHLORIDE ORAL LIQUID 20 MEQ/15 ML PO SCH ×3 (12:31→21:15)
[2016-10-13] MEDS: THIAMINE HCL 100 MG TABLET (FP) PO SCH (22:12)
[2016-10-13] MEDS: diphenhydrAMINE HCL 50 MG CAPSULE PO PRN (22:12)
[2016-10-14] MEDS: chlordiazePOXIDE HCL 25 MG CAPSULE PO SCH ×3 (05:50→17:30)
[2016-10-14] MEDS ORDERED: POTASSIUM CHLORIDE TABS 20 MEQ TABLET.ER (FP) PO ONE (09:38)
--- NOTE | 2016-10-14 09:41 | PN ---
S CIWA - CIWA Score Nausea/Vomitin Muscle Tremors: 3 Anxiety: 2 Agitation: 2 Paroxysmal Sweats: No Perspiration Orientation: 0-Oriented Tacttile Disturbances: 1-Very Mild Itch/Numbness Auditory Disturbances: 1-Very Mild Visual Disturbances: 1-Very Mild Sensitivity Headache: 2-Mild CIWA-Ar Total Score: 15 S Progress Note (SOAP) Subjective: ALERT,IRRITABLE,ANXIOUS,INTERRUPTED SLEEP,TREMOR Objective: 10/14/16 09:35 Vital Signs Temperature 97.9 F 10/14/16 06:28 Pulse Rate 100 H 10/14/16 06:28 Respiratory Rate 20 10/14/16 06:28 Blood Pressure 105/68 10/14/16 06:28 O2 Sat by Pulse Oximetry (%) 10/14/16 09:35 Laboratory Last Values WBC 2.9 K/mm3 (4.0-10.0) L D 10/13/16 06:30 RBC 2.67 M/mm3 (3.60-5.2) L 10/13/16 06:30 Hgb 9.9 GM/dL (10.7-15.3) L D 10/13/16 06:30 Hct 29.5 % (32.4-45.2) L D 10/13/16 06:30 MCV 110.6 fl (80-96) H 10/13/16 06:30 MCH 37.1 pg (25.7-33.7) H 10/13/16 06:30 MCHC 33.5 g/dl (32.0-36.0) 10/13/16 06:30 RDW 14.9 % (11.6-15.6) 10/13/16 06:30 Plt Count 56 K/MM3 (134-434) L D 10/13/16 06:30 MPV 8.4 fl (7.5-11.1) 10/13/16 06:30 Sodium 136 mmol/L (136-145) 10/13/16 06:30 Potassium 2.8 mmol/L (3.5-5.1) L* D 10/13/16 06:30 Chloride 101 mmol/L (98-107) 10/13/16 06:30 Carbon Dioxide 25 mmol/L (21-32) 10/13/16 06:30 Anion Gap 10 (8-16) 10/13/16 06:30 BUN 5 mg/dL (7-18) L D 10/13/16 06:30 Creatinine 0.7 mg/dL (0.55-1.02) D 10/13/16 06:30 Creat Clearance w eGFR > 60 (>60) 10/13/16 06:30 Random Glucose 103 mg/dL (74-106) 10/13/16 06:30 Calcium 7.6 mg/dL (8.5-10.1) L 10/13/16 06:30 Total Bilirubin 0.8 mg/dL (0.2-1.0) D 10/13/16 06:30 AST 93 U/L (15-37) H 10/13/16 06:30 ALT 46 U/L (12-78) 10/13/16 06:30 Alkaline Phosphatase 76 U/L (45-117) 10/13/16 06:30 Total Protein 7.1 g/dl (6.4-8.2) 10/13/16 06:30 Albumin 3.6 g/dl (3.4-5.0) 10/13/16 06:30 Urine Color Yellow 10/12/16 19:15 Urine Appearance Slcloudy 10/12/16 19:15 Urine pH 6.0 (5.0-8.0) 10/12/16 19:15 Ur Specific [place] 1.015 (1.005-1.025) 10/12/16 19:15 Urine Protein Negative (NEGATIVE) 10/12/16 19:15 Urine Glucose (UA) 2+ (NEGATIVE) H 10/12/16 19:15 Urine Ketones 1+ (NEGATIVE) H 10/12/16 19:15 Urine Blood 2+ (NEGATIVE) H 10/12/16 19:15 Urine Nitrite Positive (NEGATIVE) 10/12/16 19:15 Urine Bilirubin Negative (NEGATIVE) 10/12/16 19:15 Urine Urobilinogen Negative mg/dL (0.2-1.0) 10/12/16 19:15 Ur Leukocyte Esterase Negative (NEGATIVE) 10/12/16 19:15 Urine RBC 1 /hpf (0-3) 10/12/16 19:15 Urine WBC 4 /hpf (3-5) 10/12/16 19:15 Ur Epithelial Cells Rare /hpf (FEW) 10/12/16 19:15 Urine Mucus Rare 10/12/16 19:15 RPR Titer Nonreactive (NONREACTIVE) 10/13/16 06:30 10/14/16 09:41 PANCYTOPENIA MOST PROBABLY RELATED TO ALCOHOL K RELACEMENT WORK UP FOR ANEMIA Assessment: 10/14/16 09:43 WITHDRAWAL SYMPTOM Plan: CONTINUE DETOX
[2016-10-14] MEDS: PRENATAL VITAMINS W/ FOLIC ACID TABLET (FP) PO SCH (10:11)
[2016-10-14] MEDS: POTASSIUM CHLORIDE TABS 20 MEQ TABLET.ER (FP) PO SCH ×2 (10:11→22:14)
[2016-10-14 10:19] LABS: FERRITIN 339.448 ng/ml (6.9-282.5)
[2016-10-14] MEDS: FERROUS SO4 325 MG TABLET (FP) PO SCH ×2 (14:04→17:30)
--- NOTE | 2016-10-14 16:40 | EKG ---
Test Reason : Blood Pressure : / mmHG Vent. Rate : 104 BPM Atrial Rate : 104 BPM P-R Int : 142 ms QRS Dur : 086 ms QT Int : 386 ms P-R-T Axes : 065 070 067 degrees QTc Int : 507 ms SINUS TACHYCARDIA POSSIBLE LEFT ATRIAL ENLARGEMENT LEFT VENTRICULAR HYPERTROPHY WITH REPOLARIZATION ABNORMALITY ABNORMAL ECG WHEN COMPARED WITH ECG OF 14-SEP-2016 13:57, NO SIGNIFICANT CHANGE WAS FOUND Confirmed by SAMANTHA PARSON, CHRISTINE ([id number]) on 10/14/2016 4:39:57 PM Referred By: Confirmed By:CHRISTINE SINGH MD
[2016-10-14] MEDS: chlordiazePOXIDE 5 MG CAPSULE PO SCH (22:13)
[2016-10-14] MEDS: THIAMINE HCL 100 MG TABLET (FP) PO SCH (22:14)
[2016-10-14] MEDS: amLODIPine BESYLATE 10 MG TABLET (FP) PO SCH (22:14)
[2016-10-14] MEDS: diphenhydrAMINE HCL 50 MG CAPSULE PO PRN (22:15)
[2016-10-15] MEDS: chlordiazePOXIDE 5 MG CAPSULE PO SCH ×3 (05:23→17:22)
[2016-10-15 08:07] LABS: SERUM IRON 62 ug/dL (27-159); TOTAL IRON BINDING CAPACITY 190 ug/dL (250-450); UIBC 128 ug/dL (131-425)
--- NOTE | 2016-10-15 09:57 | PN ---
S Progress Note (SOAP) Subjective: ALERT,IRRITABLE,INTERRUPTED SLEEP Objective: 10/15/16 09:57 Vital Signs Temperature 97.9 F 10/15/16 06:00 Pulse Rate 91 H 10/15/16 06:00 Respiratory Rate 18 10/15/16 06:00 Blood Pressure 113/77 10/15/16 06:00 O2 Sat by Pulse Oximetry (%) 10/15/16 10:00 Assessment: 10/15/16 10:00 WITHDRAWAL SYMPTOM Plan: CONTINUE DETOX,REPEAT K TODAY,DISCHARGE IN AM
[2016-10-15] MEDS: PRENATAL VITAMINS W/ FOLIC ACID TABLET (FP) PO SCH (10:20)
[2016-10-15] MEDS: POTASSIUM CHLORIDE TABS 20 MEQ TABLET.ER (FP) PO SCH ×2 (10:20→22:15)
[2016-10-15] MEDS: FERROUS SO4 325 MG TABLET (FP) PO SCH ×3 (12:11→17:22)
[2016-10-15 21:43] VITALS: TEMP 98.1
[2016-10-15] MEDS: chlordiazePOXIDE HCL 10 MG CAPSULE PO SCH (22:15)
[2016-10-15] MEDS: THIAMINE HCL 100 MG TABLET (FP) PO SCH (22:15)
[2016-10-15] MEDS: diphenhydrAMINE HCL 50 MG CAPSULE PO PRN (22:15)
[2016-10-15] MEDS: amLODIPine BESYLATE 10 MG TABLET (FP) PO SCH (22:15)
[2016-10-16] MEDS: chlordiazePOXIDE HCL 10 MG CAPSULE PO SCH (05:09)
[2016-10-16 06:17] VITALS: BP 113/78; PULSE 92
[2016-10-16] MEDS: FERROUS SO4 325 MG TABLET (FP) PO SCH (07:49)
--- NOTE | 2016-10-16 09:13 | PN ---
S Progress Note (SOAP) Subjective: alert,no complaint Objective: 10/16/16 09:11 Vital Signs Temperature 98.1 F 10/16/16 06:16 Pulse Rate 92 H 10/16/16 06:16 Respiratory Rate 20 10/16/16 06:16 Blood Pressure 113/78 10/16/16 06:16 O2 Sat by Pulse Oximetry (%) Assessment: 10/16/16 09:12 detox completed,no withdrawal symptom 10/16/16 09:22 k repeat is 3.7 Plan: discharge today,follow up with after care program as arrangement follow up with dr vilma bright for follow up on pancytopenia and hypokalemia
[2016-10-16] MEDS: POTASSIUM CHLORIDE TABS 20 MEQ TABLET.ER (FP) PO SCH (09:31)
[2016-10-16] MEDS: PRENATAL VITAMINS W/ FOLIC ACID TABLET (FP) PO SCH (09:31)
--- NOTE | 2016-10-16 09:49 | DS ---
[facility] Detox Discharge Summary Admission Date: 10/12/16 Discharge Date: 10/16/16 - History Present History: Alcohol Dependence Additional Comments: follow up with after care program as arrangement and to see dr pam bee primary care physician for follow up with hypokalemia,pancytopenia patient will set up appointment upon discharge Pertinent Past History: hypertension asthma - Physical Exam Results Vital Signs: Vital Signs Temperature 98.1 F 10/16/16 06:16 Pulse Rate 92 H 10/16/16 06:16 Respiratory Rate 20 10/16/16 06:16 Blood Pressure 113/78 10/16/16 06:16 O2 Sat by Pulse Oximetry (%) Pertinent Admission Physical Exam Findings: withdrawal symptom - Treatment Hospital Course: Detox Protocol Followed, Detoxed Safely, Responded well, Discharged Condition Good Patient has Accepted a Rehab Referral to: declined - Medication Discharge Medications: Ambulatory Orders Albuterol Sulfate Inhaler - [Ventolin HFA Inhaler -] 2 inh IH Q4H PRN #1 inh Amlodipine Besylate [Norvasc -] 10 mg PO DAILY #30 tab 10/16/16 Potassium Chloride [K-Dur -] 20 meq PO BID #10 tab 10/16/16 - Diagnosis (1) Alcohol dependence with uncomplicated withdrawal Current Visit: Yes Status: Acute (2) Seizure Current Visit: Yes Status: Acute (3) Weight decreased Current Visit: No Status: Acute (4) Asthma Current Visit: No Status: Chronic Qualifiers: Asthma severity: mild intermittent Asthma complication type: uncomplicated Qualified Code(s): J45.20 - Mild intermittent asthma, uncomplicated (5) Syncope Current Visit: No Status: Suspected (6) ADHD (attention deficit hyperactivity disorder) Current Visit: No Status: Acute (7) Anxiety and depression Current Visit: No Status: Acute (8) Essential (primary) hypertension Current Visit: No Status: Acute (9) Hypokalemia Current Visit: Yes Status: Acute (10) Pancytopenia Current Visit: Yes Status: Acute - AMA Did Patient Leave Against Medical Advice: No
== END 2016-10-16 10:13 | disposition home or self-care (01) | DRG 775 ==
LOC: YASAS 11:18 → Y6N 16:29
PROVIDERS: ADMIT Internal Medicine Addiction Medicine; ATTEND Internal Medicine Addiction Medicine
PROC: HZ2ZZZZ Detoxification Services for Substance Abuse Treatment (ICD-10-PCS; principal; 2016-10-16)
DX: F10.230 Alcohol dependence with withdrawal, uncomplicated (principal); F10.10 Alcohol abuse, uncomplicated; F41.8 Other specified anxiety disorders; F60.9 Personality disorder, unspecified; F19.24 Other psychoactive substance dependence with psychoactive substance-induced mood disorder; F10.24 Alcohol dependence with alcohol-induced mood disorder; J45.20 Mild intermittent asthma, uncomplicated; I10 Essential (primary) hypertension; E87.6 Hypokalemia; D61.818 Other pancytopenia
CPT/HCPCS: 36415; 80053; 81003; 81015; 82607; 82728; 82746; 83540; 83550; 83690; 83735; 84132; 85027; 86593; 93005; 93010; 96360; 96361; 96374; 99285-25

== ENCOUNTER 2017-05-15 15:54 | Inpatient (IN) | payer OTHER ==
[2017-05-15 16:00] VITALS: BMI 20.3
--- NOTE | 2017-05-15 20:21 | HP ---
CIWA Score - CIWA Score Nausea/Vomitin Muscle Tremors: 3 Anxiety: 3 Agitation: 3 Paroxysmal Sweats: 1-Minimal Palms Moist Orientation: 0-Oriented Tacttile Disturbances: 2-Mild Itch/Numbness/Burn Auditory Disturbances: 2-Mild Harshness/Frighten Visual Disturbances: 2-Mild Sensitivity Headache: 2-Mild CIWA-Ar Total Score: 21 Admission ROS BHS - HPI Chief Complaint: i need help to stop drinking alcohol Allergies/Adverse Reactions: Allergies Allergy/AdvReac Type Severity Reaction Status Date / Time clarithromycin [From Biaxin] Allergy Verified 05/15/17 21:41 History of Present Illness: this 46 year old female with alcohol dependence,seeking detox,withdrawal symptom,last detox 05/02/17 at [facility] seen in er at [facility] refer for detox htn, on med nicotine dependence anxiety,depression,insomnia longest period of sobriety 45 days Exam Limitations: No Limitations - Ebola screening Have you traveled outside of the country in the last 21 days: No Have you had contact with anyone from an Ebola affected area: No Have you been sick,other than usual withdrawal symptoms: No - Review of Systems Constitutional: See HPI, Chills, Loss of Appetite, Malaise, Changes in sleep, Weakness, Unintentional Wgt. Loss EENT: reports: Tearing, Nose Congestion Respiratory: reports: No Symptoms reported Cardiac: reports: Syncope GI: reports: Diarrhea, Nausea, Vomiting, Abdominal cramping : reports: No Symptoms Reported Musculoskeletal: reports: Back Pain, Muscle Pain Integumentary: reports: Dryness Neuro: reports: Headache, Tremors Endocrine: reports: No Symptoms Reported Hematology: reports: No Symptoms Reported Psychiatric: reports: No Sypmtoms Reported, Judgement Intact, Mood/Affect Appropiate, Orientated x3, Anxious, Depressed Patient History - Patient Medical History Hx Anemia: Yes (no iron) Hx Asthma: Yes (on albuterol inhaler) Hx Chronic Obstructive Pulmonary Disease (COPD): No Hx Cancer: No Hx Cardiac Disorders: No Hx Congestive Heart Failure: No Hx Hypertension: Yes (no med) Hx Hypercholesterolemia: No Hx Pacemaker: No HX Cerebrovascular Accident: No Hx Seizures: Yes (last 3 weeks ago) Hx Dementia: No Hx Diabetes: No Hx Gastrointestinal Disorders: No Hx Liver Disease: No Hx Genitourinary Disorders: No Hx Sexually Transmitted Disorders: No Hx Renal Disease (ESRD): No Hx Thyroid Disease: No Hx Human Immunodeficiency Virus (HIV): No (04/13 negative) Hx Hepatitis C: No Hx Depression: Yes (anxiety,insomnia) Hx Suicide Attempt: No Hx Bipolar Disorder: No Hx Schizophrenia: No Other Medical History: no suicidal,no homicidal - Patient Surgical History Past Surgical History: Yes Hx Neurologic Surgery: No Hx Cataract Extraction: No Hx Cardiac Surgery: No Hx Lung Surgery: No Hx Breast Surgery: No Hx Breast Biopsy: No Hx Abdominal Surgery: Yes (ectopic rght in 1992 at [facility]) Hx Appendectomy: No Hx Cholecystectomy: No Hx Genitourinary Surgery: No Hx Section: No Hx Orthopedic Surgery: No Hx Hysterectomy: No Anesthesia Reaction: No - PPD History Previous Implant?: Yes Documented Results: Negative w/proof Implanted On Prior [facility] Admission?: Yes Date: 10/14/16 Results: 0 mm PPD to be Administered?: No - Reproductive History Patient is a Female of Child Bearing Age (11 -55 yrs old): Yes Last Menstrual Period: 10/09/16 Patient : No - Smoking Cessation Smoking history: Never smoked Have you smoked in the past 12 months: No Aproximately how many cigarettes per day: 0 If you are a former smoker, when did you quit?: 5 years ago. Hx Chewing Tobacco Use: No Initiated information on smoking cessation: Yes 'Breaking Loose' booklet given: 05/15/17 - Substance & Tx. History Hx Alcohol Use: Yes Hx Substance Use: No Substance Use Type: Alcohol Hx Substance Use Treatment: Yes ([facility] 05/15) - Substances Abused Alcohol Route: Oral Frequency: Daily Amount used: 1pint of vodka Age of first use: 13 Date of Last Use: 05/15/17 Family Disease History - Family Disease History Family Disease History: CA: Mother (alcohol,,BREAST & OVARIAN), Other: Father (alcohol,), Mother, Brother (alcohol) Admission Physical Exam BHS - Vital Signs Vital Signs: Vital Signs - 24 hr 05/15/17 15:58 Temperature 99.8 F H Pulse Rate 104 H Respiratory 18 Rate Blood Pressure 160/101 - Physical General Appearance: Yes: Moderate Distress, Tremorous, Irritable, Sweating, Anxious HEENTM: Yes: Normal ENT Inspection, Normocephalic, MICHAEL, Pharynx Normal Respiratory: Yes: Lungs Clear, Normal Breath Sounds, No Respiratory Distress Neck: Yes: Within Normal Limits, Supple, Trachea in good position Breast: Yes: Breast Exam Deferred Cardiology: Yes: Within Normal Limits, Regular Rhythm, Regular Rate, S1, S2 Abdominal: Yes: Within Normal Limits, Normal Bowel Sounds, Non Tender, Flat, Soft Genitourinary: Yes: Within Normal Limits Back: Yes: Within Normal Limits, Normal Inspection, CVA Tenderness Musculoskeletal: Yes: Within Normal Limits, Back pain, Muscle Pain Extremities: Yes: Within Normal Limits, Normal Range of Motion, Tremors Neurological: Yes: 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 NML intact, Fully Oriented, Alert, Motor Strength 5/5 Lymphatic: Yes: Within Normal Limits - Diagnostic (1) Alcohol dependence with uncomplicated withdrawal Current Visit: No Status: Acute (2) ADHD (attention deficit hyperactivity disorder) Current Visit: No Status: Acute (3) Alcohol-induced anxiety disorder Current Visit: No Status: Acute (4) Anxiety and depression Current Visit: No Status: Acute (5) Essential (primary) hypertension Current Visit: No Status: Acute (6) Insomnia Current Visit: No Status: Acute (7) Alcohol related seizure Current Visit: Yes Status: Acute (8) Pancytopenia Current Visit: No Status: Acute (9) Asthma Current Visit: No Status: Chronic Qualifiers: Asthma severity: mild intermittent Asthma complication type: uncomplicated Qualified Code(s): J45.20 - Mild intermittent asthma, uncomplicated (10) Syncope Current Visit: No Status: Suspected (11) Seizure Current Visit: No Status: Acute Cleared for Admission [facility] - Detox or Rehab [facility] Level of Care: Medically Managed Detox Regimen/Protocol: Librium [facility] Breath Alcohol Content Breath Alcohol Content: 84 Urine Pregancy Test - Result Urine Test Results: Negative- NO Line Present Urine Drug Screen - Results Drug Screen Negative: No Urine Drug Screen Results: BZO-Benzodiazepines
[2017-05-15] MEDS ORDERED: chlordiazePOXIDE HCL 25 MG CAPSULE PO PRN (20:37)
[2017-05-15] MEDS ORDERED: guaiFENesin/D-METHORPHAN HB 10 ML UNIT-DOSE CUPS PO PRN (20:37)
[2017-05-15] MEDS ORDERED: ACETAMINOPHEN 325 MG TABLET (FP) PO PRN (20:37)
[2017-05-15] MEDS ORDERED: MAGNESIUM HYDROX 2400MG/30ML ORAL SUSPENSION 30 ML CUP PO PRN (20:37)
[2017-05-15] MEDS ORDERED: MAG HYDROX/AL HYDROX/SIMETH 30 ML UNIT-DOSE CUP PO PRN (20:37)
[2017-05-15] MEDS ORDERED: MAGNESIUM CITRATE 300 ML BOTTLE PO PRN (20:37)
[2017-05-15] MEDS ORDERED: chlordiazePOXIDE HCL 25 MG CAPSULE PO ONE (20:37)
[2017-05-15] MEDS ORDERED: MENTHOL/PHENOL 1 EACH UD MM PRN (20:37)
[2017-05-15] MEDS ORDERED: P-EPHED 60MG/TRIPROLIDI 2.5MG TABLET PO PRN (20:37)
[2017-05-15] MEDS ORDERED: ALBUTEROL SO4 18 GM HFA INHALER IH PRN (20:42)
[2017-05-15] MEDS: amLODIPine BESYLATE 10 MG TABLET (FP) PO SCH (23:05)
[2017-05-15] MEDS: chlordiazePOXIDE HCL 25 MG CAPSULE PO SCH (23:06)
[2017-05-15] MEDS: THIAMINE HCL 100 MG TABLET (FP) PO SCH (23:07)
[2017-05-15 23:42] LABS: URINE APPEARANCE CLEAR; URINE BILIRUBIN NEGATIVE (NEGATIVE); URINE BLOOD NEGATIVE (NEGATIVE); URINE COLOR LTYELLOW; URINE GLUCOSE (UA) NEGATIVE (NEGATIVE); URINE KETONE NEGATIVE (NEGATIVE); URINE LEUK ESTERASE NEGATIVE (NEGATIVE); URINE NITRITE NEGATIVE (NEGATIVE); URINE PROTEIN NEGATIVE (NEGATIVE); URINE UROBILINOGEN NEGATIVE mg/dL (0.2-1.0)
[2017-05-16] MEDS: chlordiazePOXIDE HCL 25 MG CAPSULE PO SCH ×4 (06:03→22:55)
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
[2017-05-16 10:37] LABS: HEMATOCRIT 34.5 % (32.4-45.2); HEMOGLOBIN 11.5 GM/dL (10.7-15.3); MCH 34.4 pg (25.7-33.7); MCHC 33.3 g/dl (32.0-36.0); MEAN CELL VOLUME 103.4 fl (80-96); PLATELET COUNT 267 K/MM3 (134-434); RBC 3.34 M/mm3 (3.60-5.2); RDW 14.6 % (11.6-15.6); WHITE BLOOD COUNT 4.2 K/mm3 (4.0-10.0)
[2017-05-16 10:52] LABS: CHLORIDE 99 mmol/L (98-107); POTASSIUM 3.5 mmol/L (3.5-5.1); SODIUM 137 mmol/L (136-145)
[2017-05-16] MEDS: amLODIPine BESYLATE 10 MG TABLET (FP) PO SCH (10:54)
[2017-05-16] MEDS: PRENATAL VITAMINS W/ FOLIC ACID TABLET (FP) PO SCH (10:55)
[2017-05-16] MEDS: hydrOXYzine PAMOATE 25 MG CAPSULE (FP) PO PRN ×2 (10:56→22:55)
[2017-05-16 11:08] LABS: ALBUMIN 4.2 g/dl (3.4-5.0); ALK PHOS 81 U/L (45-117); ANION GAP 6 (8-16); BILIRUBIN,TOTAL 0.7 mg/dL (0.2-1.0); BLOOD UREA NITROGEN 7 mg/dL (7-18); CALCIUM 8.9 mg/dL (8.5-10.1); CO2 32 mmol/L (21-32); CREATININE 0.6 mg/dL (0.55-1.02); GLUCOSE,RANDOM 88 mg/dL (74-106); SGOT/AST 41 U/L (15-37); SGPT/ALT 34 U/L (12-78); TOT PROT 8.2 g/dl (6.4-8.2)
--- NOTE | 2017-05-16 13:11 | PN ---
S CIWA - CIWA Score Nausea/Vomitin Muscle Tremors: 4-Moderate,w/Arms Extend Anxiety: 3 Agitation: 3 Paroxysmal Sweats: 3 Orientation: 0-Oriented Tacttile Disturbances: 0-None Auditory Disturbances: 0-None Visual Disturbances: 0-None Headache: 0-None Present CIWA-Ar Total Score: 16 S Progress Note (SOAP) Subjective: sweats sleeplessness Anxious Objective: 05/16/17 13:09 A & O x 3 Vital Signs Temperature 98.6 F 05/16/17 12:03 Pulse Rate 91 H 05/16/17 12:03 Respiratory Rate 18 05/16/17 12:03 Blood Pressure 140/95 05/16/17 12:03 O2 Sat by Pulse Oximetry (%) Laboratory Last Values WBC 4.2 K/mm3 (4.0-10.0) D 05/16/17 08:40 RBC 3.34 M/mm3 (3.60-5.2) L D 05/16/17 08:40 Hgb 11.5 GM/dL (10.7-15.3) D 05/16/17 08:40 Hct 34.5 % (32.4-45.2) D 05/16/17 08:40 MCV 103.4 fl (80-96) H 05/16/17 08:40 MCH 34.4 pg (25.7-33.7) H 05/16/17 08:40 MCHC 33.3 g/dl (32.0-36.0) 05/16/17 08:40 RDW 14.6 % (11.6-15.6) 05/16/17 08:40 Plt Count 267 K/MM3 (134-434) D 05/16/17 08:40 MPV 7.0 fl (7.5-11.1) L D 05/16/17 08:40 Sodium 137 mmol/L (136-145) 05/16/17 08:10 Potassium 3.5 mmol/L (3.5-5.1) 05/16/17 08:10 Chloride 99 mmol/L (98-107) 05/16/17 08:10 Carbon Dioxide 32 mmol/L (21-32) 05/16/17 08:10 Anion Gap 6 (8-16) L 05/16/17 08:10 BUN 7 mg/dL (7-18) 05/16/17 08:10 Creatinine 0.6 mg/dL (0.55-1.02) 05/16/17 08:10 Creat Clearance w eGFR > 60 (>60) 05/16/17 08:10 Random Glucose 88 mg/dL (74-106) 05/16/17 08:10 Calcium 8.9 mg/dL (8.5-10.1) 05/16/17 08:10 Total Bilirubin 0.7 mg/dL (0.2-1.0) 05/16/17 08:10 AST 41 U/L (15-37) H 05/16/17 08:10 ALT 34 U/L (12-78) 05/16/17 08:10 Alkaline Phosphatase 81 U/L (45-117) 05/16/17 08:10 Total Protein 8.2 g/dl (6.4-8.2) 05/16/17 08:10 Albumin 4.2 g/dl (3.4-5.0) 05/16/17 08:10 Urine Color Ltyellow 05/15/17 23:25 Urine Appearance Clear 05/15/17 23:25 Urine pH 6.0 (5.0-8.0) 05/15/17 23:25 Ur Specific [place] 1.019 (1.001-1.035) 05/15/17 23:25 Urine Protein Negative (NEGATIVE) 05/15/17 23:25 Urine Glucose (UA) Negative (NEGATIVE) 05/15/17 23:25 Urine Ketones Negative (NEGATIVE) 05/15/17 23:25 Urine Blood Negative (NEGATIVE) 05/15/17 23:25 Urine Nitrite Negative (NEGATIVE) 05/15/17 23:25 Urine Bilirubin Negative (NEGATIVE) 05/15/17 23:25 Urine Urobilinogen Negative mg/dL (0.2-1.0) 05/15/17 23:25 Ur Leukocyte Esterase Negative (NEGATIVE) 05/15/17 23:25 RPR Titer Nonreactive (NONREACTIVE) 05/16/17 08:10 Labs noted Assessment: 05/16/17 13:10 withdrawal sx Plan: continue detox Increase hydration
[2017-05-16] MEDS: THIAMINE HCL 100 MG TABLET (FP) PO SCH (22:55)
[2017-05-16] MEDS: LOPERAMIDE HCL 2 MG CAPSULE PO PRN (22:55)
[2017-05-16] MEDS ORDERED: TRIMETHOBENZAMIDE HCL 200MG/2ML INJ IM ONE (23:15)
--- NOTE | 2017-05-16 23:29 | EKG ---
Test Reason : Blood Pressure : / mmHG Vent. Rate : 072 BPM Atrial Rate : 072 BPM P-R Int : 160 ms QRS Dur : 084 ms QT Int : 402 ms P-R-T Axes : 059 056 057 degrees QTc Int : 440 ms NORMAL SINUS RHYTHM MINIMAL VOLTAGE CRITERIA FOR LVH, MAY BE NORMAL VARIANT BORDERLINE ECG WHEN COMPARED WITH ECG OF 12-OCT-2016 16:33, QT HAS SHORTENED Confirmed by MELINA PARSON, RADHA ([id number]) on 05/16/2017 11:28:40 PM Referred By: Kevin Muñoz Confirmed By:RADHA SUMMERS MD
[2017-05-17] MEDS: IBUPROFEN 400 MG TABLET (FP) PO PRN ×2 (06:04→17:36)
[2017-05-17] MEDS: chlordiazePOXIDE HCL 25 MG CAPSULE PO SCH ×3 (06:07→17:33)
[2017-05-17] MEDS: hydrOXYzine PAMOATE 25 MG CAPSULE (FP) PO PRN ×2 (07:20→22:27)
[2017-05-17 09:41] LABS: HEMATOCRIT 34.5 % (32.4-45.2); HEMOGLOBIN 11.5 GM/dL (10.7-15.3); MCH 34.6 pg (25.7-33.7); MCHC 33.5 g/dl (32.0-36.0); MEAN CELL VOLUME 103.3 fl (80-96); MEAN PLT VOLUME 7.4 fl (7.5-11.1); PLATELET COUNT 185 K/MM3 (134-434); RBC 3.33 M/mm3 (3.60-5.2); RDW 15.1 % (11.6-15.6); WHITE BLOOD COUNT 4.9 K/mm3 (4.0-10.0)
[2017-05-17 09:49] LABS: ANION GAP 7 (8-16); BLOOD UREA NITROGEN 9 mg/dL (7-18); CALCIUM 8.5 mg/dL (8.5-10.1); CHLORIDE 100 mmol/L (98-107); CO2 28 mmol/L (21-32); CREATININE 0.8 mg/dL (0.55-1.02); GLUCOSE,RANDOM 109 mg/dL (74-106); POTASSIUM 3.9 mmol/L (3.5-5.1); SODIUM 135 mmol/L (136-145)
[2017-05-17] MEDS: amLODIPine BESYLATE 10 MG TABLET (FP) PO SCH (10:28)
[2017-05-17] MEDS: PRENATAL VITAMINS W/ FOLIC ACID TABLET (FP) PO SCH (10:28)
--- NOTE | 2017-05-17 10:58 | PN ---
[facility] CIWA - CIWA Score Nausea/Vomitin-Mild Nausea/No Vomiting Muscle Tremors: 4-Moderate,w/Arms Extend Anxiety: 4-Mod. Anxious/Guarded Agitation: 4-Moderately Restless Paroxysmal Sweats: 1-Minimal Palms Moist Orientation: 0-Oriented Tacttile Disturbances: 0-None Auditory Disturbances: 0-None Visual Disturbances: 0-None Headache: 0-None Present CIWA-Ar Total Score: 14 S Progress Note (SOAP) Subjective: tremor sweat anxiety restlessness irritable Objective: 05/17/17 10:58 Vital Signs Temperature 100.8 F H 05/17/17 10:36 Pulse Rate 120 H 05/17/17 10:36 Respiratory Rate 18 05/17/17 10:36 Blood Pressure 127/7 05/17/17 10:36 O2 Sat by Pulse Oximetry (%) 05/17/17 10:59 Laboratory Last Values WBC 4.9 K/mm3 (4.0-10.0) 05/17/17 06:00 RBC 3.33 M/mm3 (3.60-5.2) L 05/17/17 06:00 Hgb 11.5 GM/dL (10.7-15.3) 05/17/17 06:00 Hct 34.5 % (32.4-45.2) 05/17/17 06:00 MCV 103.3 fl (80-96) H 05/17/17 06:00 MCH 34.6 pg (25.7-33.7) H 05/17/17 06:00 MCHC 33.5 g/dl (32.0-36.0) 05/17/17 06:00 RDW 15.1 % (11.6-15.6) 05/17/17 06:00 Plt Count 185 K/MM3 (134-434) D 05/17/17 06:00 MPV 7.4 fl (7.5-11.1) L 05/17/17 06:00 Sodium 135 mmol/L (136-145) L 05/17/17 06:00 Potassium 3.9 mmol/L (3.5-5.1) 05/17/17 06:00 Chloride 100 mmol/L (98-107) 05/17/17 06:00 Carbon Dioxide 28 mmol/L (21-32) 05/17/17 06:00 Anion Gap 7 (8-16) L 05/17/17 06:00 BUN 9 mg/dL (7-18) 05/17/17 06:00 Creatinine 0.8 mg/dL (0.55-1.02) 05/17/17 06:00 Creat Clearance w eGFR > 60 (>60) 05/16/17 08:10 Random Glucose 109 mg/dL (74-106) H 05/17/17 06:00 Calcium 8.5 mg/dL (8.5-10.1) 05/17/17 06:00 Total Bilirubin 0.7 mg/dL (0.2-1.0) 05/16/17 08:10 AST 41 U/L (15-37) H 05/16/17 08:10 ALT 34 U/L (12-78) 05/16/17 08:10 Alkaline Phosphatase 81 U/L (45-117) 05/16/17 08:10 Total Protein 8.2 g/dl (6.4-8.2) 05/16/17 08:10 Albumin 4.2 g/dl (3.4-5.0) 05/16/17 08:10 Urine Color Ltyellow 05/15/17 23:25 Urine Appearance Clear 05/15/17 23:25 Urine pH 6.0 (5.0-8.0) 05/15/17 23:25 Ur Specific [place] 1.019 (1.001-1.035) 05/15/17 23:25 Urine Protein Negative (NEGATIVE) 05/15/17 23:25 Urine Glucose (UA) Negative (NEGATIVE) 05/15/17 23:25 Urine Ketones Negative (NEGATIVE) 05/15/17 23:25 Urine Blood Negative (NEGATIVE) 05/15/17 23:25 Urine Nitrite Negative (NEGATIVE) 05/15/17 23:25 Urine Bilirubin Negative (NEGATIVE) 05/15/17 23:25 Urine Urobilinogen Negative mg/dL (0.2-1.0) 05/15/17 23:25 Ur Leukocyte Esterase Negative (NEGATIVE) 05/15/17 23:25 RPR Titer Nonreactive (NONREACTIVE) 05/16/17 08:10 lab noted Assessment: 05/17/17 10:59 withdrawal sx 05/17/17 11:00 fever unknown origin Plan: continue detox chest x ray
[2017-05-17] MEDS ORDERED: ONDANSETRON *ODT* 4 MG TABLET SL ONE (11:22)
[2017-05-17] MEDS: LOPERAMIDE HCL 2 MG CAPSULE PO PRN (17:36)
[2017-05-17] MEDS: chlordiazePOXIDE 5 MG CAPSULE PO SCH (22:26)
[2017-05-17] MEDS: METOPROLOL TARTRATE 25 MG TABLET (FP) PO SCH (22:26)
[2017-05-17] MEDS: THIAMINE HCL 100 MG TABLET (FP) PO SCH (22:26)
[2017-05-18] MEDS: chlordiazePOXIDE 5 MG CAPSULE PO SCH ×3 (06:03→17:08)
[2017-05-18] MEDS: hydrOXYzine PAMOATE 25 MG CAPSULE (FP) PO PRN (06:04)
[2017-05-18] MEDS ORDERED: COLLOIDAL OATMEAL 1 BAR EACH TP PRN (07:01)
--- NOTE | 2017-05-18 10:17 | PN ---
BHS Progress Note (SOAP) Subjective: nausea, sweats,interrupted lseep, anxiety, trmeors Objective: 05/18/17 10:16 Vital Signs - 24 hr 05/17/17 05/17/17 05/17/17 10:36 13:23 18:07 Temperature 100.8 F H 100.0 F H 96.3 F L Pulse Rate 120 H 124 H 110 H Respiratory 18 18 19 Rate Blood Pressure 127/7 139/88 125/81 05/17/17 05/18/17 22:53 06:00 Temperature 98.2 F 97.9 F Pulse Rate 99 H 81 Respiratory 20 16 Rate Blood Pressure 107/72 120/67 Laboratory Tests 05/15/17 05/16/17 05/16/17 23:25 08:10 08:10 WBC RBC Hgb Hct MCV MCH MCHC RDW Plt Count MPV Sodium 137 Potassium 3.5 Chloride 99 Carbon Dioxide 32 Anion Gap 6 L BUN 7 Creatinine 0.6 Creat Clearance w eGFR > 60 Random Glucose 88 Calcium 8.9 Total Bilirubin 0.7 AST 41 H ALT 34 Alkaline Phosphatase 81 Total Protein 8.2 Albumin 4.2 Urine Color Ltyellow Urine Appearance Clear Urine pH 6.0 Ur Specific [place] 1.019 Urine Protein Negative Urine Glucose (UA) Negative Urine Ketones Negative Urine Blood Negative Urine Nitrite Negative Urine Bilirubin Negative Urine Urobilinogen Negative Ur Leukocyte Esterase Negative RPR Titer Nonreactive 05/16/17 05/17/17 05/17/17 08:40 06:00 06:00 WBC 4.2 D 4.9 RBC 3.34 L D 3.33 L Hgb 11.5 D 11.5 Hct 34.5 D 34.5 MCV 103.4 H 103.3 H MCH 34.4 H 34.6 H MCHC 33.3 33.5 RDW 14.6 15.1 Plt Count 267 D 185 D MPV 7.0 L D 7.4 L Sodium 135 L Potassium 3.9 Chloride 100 Carbon Dioxide 28 Anion Gap 7 L BUN 9 Creatinine 0.8 Creat Clearance w eGFR Random Glucose 109 H Calcium 8.5 Total Bilirubin AST ALT Alkaline Phosphatase Total Protein Albumin Urine Color Urine Appearance Urine pH Ur Specific [place] Urine Protein Urine Glucose (UA) Urine Ketones Urine Blood Urine Nitrite Urine Bilirubin Urine Urobilinogen Ur Leukocyte Esterase RPR Titer Assessment: 05/18/17 10:16 withdrawwal sx - cotn detox, k supplemented wnl
[2017-05-18] MEDS: PRENATAL VITAMINS W/ FOLIC ACID TABLET (FP) PO SCH (10:18)
[2017-05-18] MEDS: amLODIPine BESYLATE 5 MG TABLET (FP) PO SCH (10:18)
[2017-05-18] MEDS: METOPROLOL TARTRATE 25 MG TABLET (FP) PO SCH ×2 (10:18→22:35)
--- NOTE | 2017-05-18 10:21 | PN ---
Psychiatric Progress Note Vital Signs: Vital Signs Period Temp Pulse Resp BP Sys/Humphries Pulse Ox Last 24 Hr 96.3 F-100.8 F 81-124 16-20 107-139/7-88 Date of Session: 05/18/17 Chief Complaint:: Insomnia HPI: Patient reports insomnia, reports good response on Seroquel 100mg po qhs in the past Current Medications: Active Medications Generic Name Dose Route Start Last Admin Trade Name Freq PRN Reason Stop Dose Admin Acetaminophen 650 mg 05/15/17 20:37 05/17/17 10:29 Tylenol - PO 650 mg Q4H PRN Administration FEVER Al Hydroxide/Mg Hydroxide 30 ml 05/15/17 20:37 Mylanta Oral Suspension - PO Q6H PRN DYSPEPSIA Albuterol Sulfate 2 puff 05/15/17 20:42 Ventolin Hfa Inhaler - IH Q4H PRN ASTHMA Amlodipine Besylate 5 mg 05/18/17 10:00 Norvasc - PO DAILY FARIHA Chlordiazepoxide HCl 15 mg 05/17/17 23:00 05/18/17 06:03 Librium - PO 05/18/17 17:01 15 mg [id number] FARIHA Administration Chlordiazepoxide HCl 25 mg 05/15/17 20:37 Librium - PO 05/18/17 20:36 Q4H PRN WITHDRAWAL(CONT SUBST) Chlordiazepoxide HCl 10 mg 05/18/17 23:00 Librium - PO 05/19/17 17:01 [id number] FARIHA Colloidal Oatmeal 1 applic 05/18/17 07:01 Aveeno Soap - TP DAILY PRN HYGEINE Eucalyptus/Menthol/Phenol/Sorbitol 1 each 05/15/17 20:37 Cepastat Lozenge - MM Q4H PRN SORE THROAT Guaifenesin 10 ml 05/15/17 20:37 Robitussin Dm - PO Q6H PRN COUGH Hydroxyzine Pamoate 25 mg 05/15/17 20:37 05/18/17 06:04 Vistaril - PO 25 mg Q4H PRN Administration AGITATION Ibuprofen 400 mg 05/15/17 20:37 05/17/17 17:36 Motrin - PO 400 mg Q6H PRN Administration PAIN LEVEL 4-6 Loperamide HCl 4 mg 05/15/17 20:37 05/17/17 17:36 Imodium - PO 4 mg Q6H PRN Administration DIARRHEA Magnesium Citrate 300 ml 05/15/17 20:37 Citroma - PO Q48H PRN CONSTIPATION Magnesium Hydroxide 30 ml 05/15/17 20:37 Milk Of Magnesia - PO DAILY PRN CONSTIPATION Metoprolol Tartrate 25 mg 05/17/17 22:00 05/17/17 22:26 Lopressor - PO 25 mg BID FARIHA Administration Multivit/Folic Acid/Iron 1 tab 05/16/17 10:00 05/17/17 10:28 Vitamins (Sjr) - PO 1 tab DAILY FARIHA Administration Pseudoephedrine/Triprolidine 1 combo 05/15/17 20:37 Actifed - PO TID PRN NASAL CONGESTION Quetiapine Fumarate 100 mg 05/18/17 22:00 Seroquel - PO HS FARIHA Thiamine HCl 100 mg 05/15/17 22:00 05/17/17 22:26 Vitamin B1 - PO 100 mg HS FARIHA Administration Medication(s) Change(s): Seroquel 100mg po qhs Mental Status Exam - Mental Status Exam Alert and Oriented to: Person Cognitive Function: Fair Patient Appearance: Unkempt Mood: Sad Affect: Mood Congruent Patient Behavior: Cooperative Speech Pattern: Appropriate Voice Loudness: Mildly Loud Thought Process: Circumstantial Thought Disorder: Being Controlled Hallucinations: Denies Suicidal Ideation: Denies Homicidal Ideation: Denies Insight/Judgement: Fair Sleep: Difficulty falling asleep Appetite: Weight loss Muscle strength/Tone: Normal Gait/Station: Normal Additional Comments: Seroquel 100mg po qhs Psychiatric Treatment Plan - Problem List (1) Alcohol dependence with uncomplicated withdrawal Current Visit: Yes (2) Alcohol related seizure Current Visit: Yes (3) Alcohol-induced anxiety disorder Current Visit: Yes Comment: Vistaril 25mg q4h ordered. (4) Alcohol withdrawal Current Visit: No Qualifiers: Complication of substance-induced condition: uncomplicated Qualified Code(s ): F10.230 - Alcohol dependence with withdrawal, uncomplicated (5) Drug-induced mood disorder Current Visit: No (6) ADHD (attention deficit hyperactivity disorder) Current Visit: No Comment: Self reports. (7) Borderline personality disorder Current Visit: No Initial treatment plan: Seroquel 100mg po qhs
[2017-05-18] MEDS ORDERED: QUEtiapine FUMARATE 100 MG TABLET (FP) PO SCH ×2 (22:00)
[2017-05-18] MEDS: THIAMINE HCL 100 MG TABLET (FP) PO SCH (22:35)
[2017-05-18] MEDS: chlordiazePOXIDE HCL 10 MG CAPSULE PO SCH (22:35)
[2017-05-19] MEDS: chlordiazePOXIDE HCL 10 MG CAPSULE PO SCH (05:34)
[2017-05-19] MEDS: IBUPROFEN 400 MG TABLET (FP) PO PRN (05:36)
[2017-05-19 07:44] VITALS: BP 121/70; PULSE 90; TEMP 100.4
--- NOTE | 2017-05-19 08:36 | DS ---
[facility] Detox Discharge Summary Admission Date: 05/15/17 Discharge Date: 05/19/17 - History Present History: Alcohol Dependence - Physical Exam Results Vital Signs: Vital Signs Temperature 100.4 F H 05/19/17 07:44 Pulse Rate 90 05/19/17 07:44 Respiratory Rate 16 05/19/17 07:44 Blood Pressure 121/70 05/19/17 07:44 O2 Sat by Pulse Oximetry (%) - Treatment Hospital Course: Detox Protocol Followed, Detoxed Safely, Responded well, Discharged Condition Good, Rehab Referral Accepted - Medication Discharge Medications: Ambulatory Orders Albuterol Sulfate Inhaler - [Ventolin HFA Inhaler -] 2 inh IH Q4H PRN #1 inh Amlodipine Besylate [Norvasc -] 10 mg PO DAILY #30 tab 05/18/17 Metoprolol Tartrate [Lopressor -] 25 mg PO BID #60 tablet 05/18/17 Quetiapine Fumarate [Seroquel] 100 mg PO HS #30 tablet 05/18/17 Quetiapine Fumarate [Seroquel] 100 mg PO HS #30 tablet 05/18/17 - Diagnosis (1) Alcohol dependence with uncomplicated withdrawal Current Visit: Yes Status: Chronic (2) Alcohol related seizure Current Visit: Yes Status: Acute (3) Alcohol-induced anxiety disorder Current Visit: Yes Status: Acute (4) Anemia Current Visit: Yes Status: Acute (5) Alcohol withdrawal Current Visit: No Status: Acute Qualifiers: Complication of substance-induced condition: uncomplicated Qualified Code(s ): F10.230 - Alcohol dependence with withdrawal, uncomplicated (6) Drug-induced mood disorder Current Visit: No Status: Acute (7) Essential (primary) hypertension Current Visit: No Status: Acute (8) Hypokalemia Current Visit: No Status: Acute (9) Insomnia Current Visit: No Status: Acute (10) Pancytopenia Current Visit: No Status: Acute (11) Seizure Current Visit: No Status: Acute (12) Weight decreased Current Visit: No Status: Acute (13) ADHD (attention deficit hyperactivity disorder) Current Visit: No Status: Chronic (14) Asthma Current Visit: No Status: Chronic Qualifiers: Asthma severity: mild intermittent Asthma complication type: uncomplicated Qualified Code(s): J45.20 - Mild intermittent asthma, uncomplicated (15) Borderline personality disorder Current Visit: No Status: Suspected (16) Syncope Current Visit: No Status: Suspected - AMA Did Patient Leave Against Medical Advice: No
[2017-05-19] MEDS: amLODIPine BESYLATE 5 MG TABLET (FP) PO SCH (09:13)
[2017-05-19] MEDS: METOPROLOL TARTRATE 25 MG TABLET (FP) PO SCH (09:13)
[2017-05-19] MEDS: PRENATAL VITAMINS W/ FOLIC ACID TABLET (FP) PO SCH (09:13)
== END 2017-05-19 09:32 | disposition home or self-care (01) | DRG 756 ==
LOC: YASAS 15:54 → Y6N 18:06
PROVIDERS: ADMIT Internal Medicine; ATTEND Internal Medicine
PROC: HZ2ZZZZ Detoxification Services for Substance Abuse Treatment (ICD-10-PCS; principal; 2017-05-15)
DX: F99 Mental disorder, not otherwise specified (principal); F10.230 Alcohol dependence with withdrawal, uncomplicated; F90.9 Attention-deficit hyperactivity disorder, unspecified type; F60.9 Personality disorder, unspecified; G40.509 Epileptic seizures related to external causes, not intractable, without status epilepticus; F19.24 Other psychoactive substance dependence with psychoactive substance-induced mood disorder; G47.00 Insomnia, unspecified; I10 Essential (primary) hypertension; E87.6 Hypokalemia; D61.818 Other pancytopenia; R63.4 Abnormal weight loss; Z68.20 Body mass index [BMI] 20.0-20.9, adult
CPT/HCPCS: 36415; 71046-TC-FY; 80048; 80053; 81003; 85027; 86593; 93005; 93010

== ENCOUNTER 2017-09-04 14:47 | Inpatient (IN) | payer OTHER ==
[2017-09-04 15:22] VITALS: BMI 19.1
--- NOTE | 2017-09-04 15:57 | HP ---
CIWA Score - CIWA Score Nausea/Vomitin Muscle Tremors: 3 Anxiety: 3 Agitation: 3 Paroxysmal Sweats: 1-Minimal Palms Moist Orientation: 0-Oriented Tacttile Disturbances: 1-Very Mild Itch/Numbness Auditory Disturbances: 1-Very Mild Visual Disturbances: 0-None Headache: 2-Mild CIWA-Ar Total Score: 17 Admission ROS BHS - HPI Chief Complaint: i need help to stop drinking alcohol Allergies/Adverse Reactions: Allergies Allergy/AdvReac Type Severity Reaction Status Date / Time clarithromycin [From Biaxin] Allergy Verified 09/04/17 15:26 History of Present Illness: this 47 years old female with alcohol dependence,seeking detox,lwithdrawal symptom,[facility] in [facility] 05/15/17 to seizure last 04/14 nicotine dependence anxiety,depression,insomnia longest period of sobriety 45 days Exam Limitations: No Limitations - Ebola screening Have you traveled outside of the country in the last 21 days: No (N) Have you had contact with anyone from an Ebola affected area: No Have you been sick,other than usual withdrawal symptoms: No Do you have a fever: No - Review of Systems Constitutional: Loss of Appetite, Malaise, Night Sweats, Changes in sleep, Weakness, Unintentional Wgt. Loss EENT: reports: Nose Congestion Respiratory: reports: No Symptoms reported, Other (asthma) GI: reports: Nausea, Poor Appetite, Vomiting, Abdominal cramping : reports: No Symptoms Reported Musculoskeletal: reports: Back Pain, Muscle Pain Integumentary: reports: Dryness Neuro: reports: Tremors Endocrine: reports: No Symptoms Reported Hematology: reports: No Symptoms Reported Psychiatric: reports: No Sypmtoms Reported, Judgement Intact, Mood/Affect Appropiate, Anxious, Depressed (insomnia) Patient History - Patient Medical History Hx Anemia: Yes (no iron) Hx Asthma: Yes (on albuterol inhaler) Hx Chronic Obstructive Pulmonary Disease (COPD): No Hx Cancer: No Hx Cardiac Disorders: No Hx Congestive Heart Failure: No Hx Hypertension: Yes (NOT TAKING ANY MEDICATION) Hx Hypercholesterolemia: No Hx Pacemaker: No HX Cerebrovascular Accident: No Hx Seizures: Yes (MARCH 2017) Hx Dementia: No Hx Diabetes: No Hx Gastrointestinal Disorders: No Hx Liver Disease: No Hx Genitourinary Disorders: No Hx Sexually Transmitted Disorders: No Hx Renal Disease (ESRD): No Hx Thyroid Disease: No Hx Human Immunodeficiency Virus (HIV): No (04/13 negative) Hx Hepatitis C: No Hx Depression: Yes (anxiety,insomnia) Hx Suicide Attempt: No Hx Bipolar Disorder: No Hx Schizophrenia: No Other Medical History: no suicidal,no homicidal - Patient Surgical History Past Surgical History: Yes Hx Neurologic Surgery: No Hx Cataract Extraction: No Hx Cardiac Surgery: No Hx Lung Surgery: No Hx Breast Surgery: No Hx Breast Biopsy: No Hx Abdominal Surgery: Yes (ectopic rght in 1992 at [facility]) Hx Appendectomy: No Hx Cholecystectomy: No Hx Genitourinary Surgery: No Hx Section: No Hx Orthopedic Surgery: No Hx Hysterectomy: No Other Surgical History: induced in 2003 Anesthesia Reaction: No - PPD History Previous Implant?: Yes Documented Results: Negative w/proof Implanted On Prior [facility] Admission?: Yes Date: 10/14/16 Results: NEGATIVE o mm PPD to be Administered?: No - Reproductive History Patient is a Female of Child Bearing Age (11 -55 yrs old): Yes Last Menstrual Period: 07/26/17 Patient : No - Smoking Cessation Smoking history: Current some day smoker Have you smoked in the past 12 months: Yes Aproximately how many cigarettes per day: 1 If you are a former smoker, when did you quit?: 5 years ago. Hx Chewing Tobacco Use: No Initiated information on smoking cessation: Yes 'Breaking Loose' booklet given: 09/04/17 - Substance & Tx. History Hx Alcohol Use: Yes Hx Substance Use: No Substance Use Type: Alcohol Hx Substance Use Treatment: Yes ([facility] 05/15/17 to 05/19/17) - Substances Abused Alcohol Route: Oral Frequency: 3-6 times per week Amount used: 1 PINT OF VODKA Age of first use: 13 Date of Last Use: 09/03/17 Family Disease History - Family Disease History Family Disease History: CA: Mother (alcohol,,BREAST & OVARIAN), Other: Father (alcohol,), Mother, Brother (alcohol) Admission Physical Exam BHS - Vital Signs Vital Signs: Vital Signs - 24 hr 09/04/17 15:11 Temperature 96.3 F L Pulse Rate 106 H Respiratory 19 Rate Blood Pressure 125/82 - Physical General Appearance: Yes: Moderate Distress, Tremorous, Irritable, Sweating, Anxious HEENTM: Yes: Normal ENT Inspection, MICHAEL, Pharynx Normal Respiratory: Yes: Lungs Clear, Normal Breath Sounds, No Respiratory Distress Neck: Yes: Within Normal Limits, Supple, Trachea in good position Breast: Yes: Breast Exam Deferred Cardiology: Yes: Within Normal Limits, Regular Rhythm, Regular Rate, S1, S2 Abdominal: Yes: Within Normal Limits, Normal Bowel Sounds, Soft Genitourinary: Yes: Within Normal Limits Back: Yes: Within Normal Limits Musculoskeletal: Yes: Back pain, Muscle Pain Extremities: Yes: Tremors 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 NML intact, Fully Oriented, Alert, Motor Strength 5/5 Integumentary: Yes: Dry Lymphatic: Yes: Within Normal Limits - Diagnostic (1) Alcohol dependence with uncomplicated withdrawal Current Visit: No Status: Chronic (2) Alcohol related seizure Current Visit: No Status: Acute (3) Essential (primary) hypertension Current Visit: No Status: Acute (4) Weight decreased Current Visit: No Status: Acute (5) Asthma Current Visit: No Status: Chronic Qualifiers: Asthma severity: mild intermittent Asthma complication type: uncomplicated (6) Syncope Current Visit: No Status: Suspected (7) Insomnia secondary to depression with anxiety Current Visit: Yes Status: Acute Cleared for Admission [facility] - Detox or Rehab [facility] Level of Care: Medically Managed Detox Regimen/Protocol: Librium [facility] Breath Alcohol Content Breath Alcohol Content: 0.105 Urine Pregancy Test - Result Urine Test Results: Negative- NO Line Present Urine Drug Screen - Results Drug Screen Negative: Yes Urine Drug Screen Results: AMP-Amphetamines, BZO-Benzodiazepines
[2017-09-04] MEDS ORDERED: chlordiazePOXIDE HCL 25 MG CAPSULE PO PRN (16:10)
[2017-09-04] MEDS ORDERED: IBUPROFEN 400 MG TABLET (FP) PO PRN (16:10)
[2017-09-04] MEDS ORDERED: MENTHOL/PHENOL 1 EACH UD MM PRN (16:10)
[2017-09-04] MEDS ORDERED: MAGNESIUM CITRATE 300 ML BOTTLE PO PRN (16:10)
[2017-09-04] MEDS ORDERED: ACETAMINOPHEN 325 MG TABLET (FP) PO PRN (16:10)
[2017-09-04] MEDS ORDERED: MAG HYDROX/AL HYDROX/SIMETH 30 ML UNIT-DOSE CUP PO PRN (16:10)
[2017-09-04] MEDS ORDERED: LOPERAMIDE HCL 2 MG CAPSULE PO PRN (16:10)
[2017-09-04] MEDS ORDERED: P-EPHED 60MG/TRIPROLIDI 2.5MG TABLET PO PRN (16:10)
[2017-09-04] MEDS ORDERED: MAGNESIUM HYDROX 2400MG/30ML ORAL SUSPENSION 30 ML CUP PO PRN (16:10)
[2017-09-04] MEDS ORDERED: guaiFENesin/D-METHORPHAN HB 10 ML UNIT-DOSE CUPS PO PRN (16:10)
[2017-09-04] MEDS ORDERED: ALBUTEROL SO4 18 GM HFA INHALER IH PRN (16:21)
[2017-09-04] MEDS ORDERED: chlordiazePOXIDE HCL 25 MG CAPSULE PO ONE (16:45)
[2017-09-04] MEDS: chlordiazePOXIDE HCL 25 MG CAPSULE PO SCH ×2 (17:43→22:30)
[2017-09-04] MEDS ORDERED: COLLOIDAL OATMEAL 1 BAR EACH TP PRN (18:12)
[2017-09-04 21:15] LABS: URINE APPEARANCE CLEAR; URINE BILIRUBIN NEGATIVE (<2.0 mg/dL); URINE COLOR LTYELLOW; URINE GLUCOSE (UA) 1+ (NEGATIVE); URINE KETONE TRACE (NEGATIVE); URINE LEUK ESTERASE NEGATIVE (NEGATIVE); URINE NITRITE NEGATIVE (NEGATIVE); URINE PROTEIN NEGATIVE (NEGATIVE); URINE UROBILINOGEN NEGATIVE mg/dL (0.2-1.0)
[2017-09-04] MEDS: THIAMINE HCL 100 MG TABLET (FP) PO SCH (22:31)
[2017-09-05] MEDS: chlordiazePOXIDE HCL 25 MG CAPSULE PO SCH ×4 (05:34→22:31)
--- NOTE | 2017-09-05 09:05 | CONSULT ---
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 Smoking history: Current some day smoker. Have you smoked in the past 12 months: Yes. Aproximately how many cigarettes per day: 1. If you are a former smoker, when did you quit?: 5 years ago. Hx Chewing Tobacco Use: No. Initiated information on smoking cessation: Yes. 'Breaking Loose' booklet given: 09/04/17. - Substance & Tx. History. Hx Alcohol Use: Yes. Hx Substance Use: No. Substance Use Type: Alcohol. Hx Substance Use Treatment: Yes ([facility] 05/15/17 to 05/19/17). - Substances Abused. Alcohol. Route: Oral. Frequency: 3-6 times per week. Amount used: 1 PINT OF VODKA. Age of first use: 13. Date of Last Use: 09/03/17 Medical History: Syncope history, HTN, Weight loss history, Asthma. Psychiatric History: ADHD, Borderlinf persomnality as per chart, Patient reports history of depressiojn and anxiety, reports no psychiatric hospitalization history, reports nop medications taking priormtom admission, deniesn suicidal. homicidal history. Physical/Sexual Abuse/Trauma History: Denies Additional Comment: Observatiopn. Detox Unit vCare ProtocolUrine Drug Screen Results: AMP-Amphetamines, BZO-Benzodiazepines Mental Status Exam - Mental Status Exam Alert and Oriented to: Person Cognitive Function: Fair Patient Appearance: Unkempt Mood: Expansive Affect: Flat Patient Behavior: Sedated Speech Pattern: Delayed Voice Loudness: Mildly Soft/Quiet Thought Process: Circumstantial Thought Disorder: Being Controlled Hallucinations: Denies Suicidal Ideation: Denies Homicidal Ideation: Denies Insight/Judgement: Fair Sleep: Difficulty falling asleep Appetite: Weight loss Muscle strength/Tone: Mild Hypotonicity Gait/Station: Shuffling Additional Comments: Urine Drug Screen Results: AMP-Amphetamines, BZO- Benzodiazepines Psychiatric Findings - Problem List ([place] 1, 2,3) (1) Insomnia secondary to depression with anxiety Current Visit: Yes Status: Acute (2) Alcohol related seizure Current Visit: No Status: Acute (3) Alcohol withdrawal Current Visit: No Status: Acute Qualifiers: Complication of substance-induced condition: uncomplicated Qualified Code(s ): F10.230 - Alcohol dependence with withdrawal, uncomplicated (4) Alcohol-induced anxiety disorder Current Visit: No Status: Acute Comment: Vistaril 25mg q4h ordered. (5) Drug-induced mood disorder Current Visit: No Status: Acute (6) ADHD (attention deficit hyperactivity disorder) Current Visit: No Status: Chronic Comment: Self reports. (7) Alcohol dependence with uncomplicated withdrawal Current Visit: No Status: Chronic (8) Borderline personality disorder Current Visit: No Status: Suspected - Initial Treatment Plan Initial Treatment Plan: Urine Drug Screen Results: AMP-Amphetamines, BZO- Benzodiazepines. Observation]. Detox Unit Care Protocol
[2017-09-05] MEDS: PRENATAL VITAMINS W/ FOLIC ACID TABLET (FP) PO SCH (10:25)
--- NOTE | 2017-09-05 10:45 | PN ---
S CIWA - CIWA Score Nausea/Vomitin Muscle Tremors: 3 Anxiety: 3 Agitation: 2 Paroxysmal Sweats: 1-Minimal Palms Moist Orientation: 0-Oriented Tacttile Disturbances: 1-Very Mild Itch/Numbness Auditory Disturbances: 1-Very Mild Visual Disturbances: 0-None Headache: 2-Mild CIWA-Ar Total Score: 16 BHS Progress Note (SOAP) Subjective: alert,irritable,anxious,interrupted sleep,tremor Objective: 09/05/17 10:43 Laboratory Last Values Urine Color Ltyellow 09/04/17 17:39 Urine Appearance Clear 09/04/17 17:39 Urine pH 6.0 (5.0-8.0) 09/04/17 17:39 Ur Specific [place] 1.020 (1.001-1.035) 09/04/17 17:39 Urine Protein Negative (NEGATIVE) 09/04/17 17:39 Urine Glucose (UA) 1+ (NEGATIVE) H 09/04/17 17:39 Urine Ketones Trace (NEGATIVE) H 09/04/17 17:39 Urine Blood Negative (NEGATIVE) 09/04/17 17:39 Urine Nitrite Negative (NEGATIVE) 09/04/17 17:39 Urine Bilirubin Negative (<2.0 mg/dL) 09/04/17 17:39 Urine Urobilinogen Negative mg/dL (0.2-1.0) 09/04/17 17:39 Ur Leukocyte Esterase Negative (NEGATIVE) 09/04/17 17:39 ekg nsr,lvh prolong qt380/457 no chest pain,no sob,no dizziness Laboratory Last Values Urine Color Ltyellow 09/04/17 17:39 Urine Appearance Clear 09/04/17 17:39 Urine pH 6.0 (5.0-8.0) 09/04/17 17:39 Ur Specific [place] 1.020 (1.001-1.035) 09/04/17 17:39 Urine Protein Negative (NEGATIVE) 09/04/17 17:39 Urine Glucose (UA) 1+ (NEGATIVE) H 09/04/17 17:39 Urine Ketones Trace (NEGATIVE) H 09/04/17 17:39 Urine Blood Negative (NEGATIVE) 09/04/17 17:39 Urine Nitrite Negative (NEGATIVE) 09/04/17 17:39 Urine Bilirubin Negative (<2.0 mg/dL) 09/04/17 17:39 Urine Urobilinogen Negative mg/dL (0.2-1.0) 09/04/17 17:39 Ur Leukocyte Esterase Negative (NEGATIVE) 09/04/17 17:39 labs pending Assessment: 09/05/17 10:45 withdrawal symptom Plan: continue detox
[2017-09-05 11:18] LABS: HEMATOCRIT 33.6 % (32.4-45.2); HEMOGLOBIN 11.7 GM/dL (10.7-15.3); MCH 33.5 pg (25.7-33.7); MCHC 34.9 g/dl (32.0-36.0); PLATELET COUNT 174 K/MM3 (134-434); WHITE BLOOD COUNT 4.4 K/mm3 (4.0-10.0)
[2017-09-05 11:37] LABS: ALBUMIN 3.7 g/dl (3.4-5.0); ANION GAP 9 (8-16); BLOOD UREA NITROGEN 10 mg/dL (7-18); CALCIUM 7.6 mg/dL (8.5-10.1); CHLORIDE 99 mmol/L (98-107); CO2 29 mmol/L (21-32); CREATININE 0.7 mg/dL (0.55-1.02); GLUCOSE,RANDOM 80 mg/dL (74-106); POTASSIUM 3.6 mmol/L (3.5-5.1); SGOT/AST 55 U/L (15-37); SGPT/ALT 46 U/L (12-78); SODIUM 137 mmol/L (136-145)
[2017-09-05 11:39] LABS: ALK PHOS 66 U/L (45-117); BILIRUBIN,TOTAL 0.4 mg/dL (0.2-1.0); TOT PROT 7.6 g/dl (6.4-8.2)
--- NOTE | 2017-09-05 16:36 | EKG ---
Test Reason : Blood Pressure : / mmHG Vent. Rate : 087 BPM Atrial Rate : 087 BPM P-R Int : 160 ms QRS Dur : 088 ms QT Int : 380 ms P-R-T Axes : 071 059 071 degrees QTc Int : 457 ms NORMAL SINUS RHYTHM POSSIBLE LEFT ATRIAL ENLARGEMENT LEFT VENTRICULAR HYPERTROPHY ABNORMAL ECG WHEN COMPARED WITH ECG OF 15-MAY-2017 21:43, NO SIGNIFICANT CHANGE WAS FOUND Confirmed by AMANDA MCCALL MD ([id number]) on 09/05/2017 4:35:53 PM Referred By: Confirmed By:AMANDA MCCALL MD
[2017-09-05] MEDS: THIAMINE HCL 100 MG TABLET (FP) PO SCH (22:31)
[2017-09-06] MEDS: chlordiazePOXIDE HCL 25 MG CAPSULE PO SCH ×2 (05:25→10:52)
[2017-09-06] MEDS: PRENATAL VITAMINS W/ FOLIC ACID TABLET (FP) PO SCH (10:50)
--- NOTE | 2017-09-06 11:59 | PN ---
S CIWA - CIWA Score Nausea/Vomitin Muscle Tremors: 3 Anxiety: 3 Agitation: 3 Paroxysmal Sweats: 1-Minimal Palms Moist Orientation: 0-Oriented Tacttile Disturbances: 2-Mild Itch/Numbness/Burn Auditory Disturbances: 2-Mild Harshness/Frighten Visual Disturbances: 0-None Headache: 2-Mild CIWA-Ar Total Score: 19 BHS Progress Note (SOAP) Subjective: alert,irritable,anxious,interrupted sleep, Objective: 09/06/17 11:57 Vital Signs Temperature 98.1 F 09/06/17 09:24 Pulse Rate 93 H 09/06/17 09:24 Respiratory Rate 16 09/06/17 09:24 Blood Pressure 140/100 09/06/17 09:24 O2 Sat by Pulse Oximetry (%) 09/06/17 11:57 Laboratory Last Values WBC 4.4 K/mm3 (4.0-10.0) 09/05/17 07:00 RBC 3.50 M/mm3 (3.60-5.2) L 09/05/17 07:00 Hgb 11.7 GM/dL (10.7-15.3) 09/05/17 07:00 Hct 33.6 % (32.4-45.2) 09/05/17 07:00 MCV 96.0 fl (80-96) 09/05/17 07:00 MCH 33.5 pg (25.7-33.7) 09/05/17 07:00 MCHC 34.9 g/dl (32.0-36.0) 09/05/17 07:00 RDW 15.0 % (11.6-15.6) 09/05/17 07:00 Plt Count 174 K/MM3 (134-434) 09/05/17 07:00 MPV 7.0 fl (7.5-11.1) L 09/05/17 07:00 Sodium 137 mmol/L (136-145) 09/05/17 07:00 Potassium 3.6 mmol/L (3.5-5.1) 09/05/17 07:00 Chloride 99 mmol/L (98-107) 09/05/17 07:00 Carbon Dioxide 29 mmol/L (21-32) 09/05/17 07:00 Anion Gap 9 (8-16) 09/05/17 07:00 BUN 10 mg/dL (7-18) 09/05/17 07:00 Creatinine 0.7 mg/dL (0.55-1.02) 09/05/17 07:00 Creat Clearance w eGFR > 60 (>60) 09/05/17 07:00 Random Glucose 80 mg/dL (74-106) 09/05/17 07:00 Calcium 7.6 mg/dL (8.5-10.1) L 09/05/17 07:00 Total Bilirubin 0.4 mg/dL (0.2-1.0) D 09/05/17 07:00 AST 55 U/L (15-37) H 09/05/17 07:00 ALT 46 U/L (12-78) 09/05/17 07:00 Alkaline Phosphatase 66 U/L (45-117) 09/05/17 07:00 Total Protein 7.6 g/dl (6.4-8.2) 09/05/17 07:00 Albumin 3.7 g/dl (3.4-5.0) 09/05/17 07:00 Urine Color Ltyellow 09/04/17 17:39 Urine Appearance Clear 09/04/17 17:39 Urine pH 6.0 (5.0-8.0) 09/04/17 17:39 Ur Specific [place] 1.020 (1.001-1.035) 09/04/17 17:39 Urine Protein Negative (NEGATIVE) 09/04/17 17:39 Urine Glucose (UA) 1+ (NEGATIVE) H 09/04/17 17:39 Urine Ketones Trace (NEGATIVE) H 09/04/17 17:39 Urine Blood Negative (NEGATIVE) 09/04/17 17:39 Urine Nitrite Negative (NEGATIVE) 09/04/17 17:39 Urine Bilirubin Negative (<2.0 mg/dL) 09/04/17 17:39 Urine Urobilinogen Negative mg/dL (0.2-1.0) 09/04/17 17:39 Ur Leukocyte Esterase Negative (NEGATIVE) 09/04/17 17:39 RPR Titer Nonreactive (NONREACTIVE) 09/05/17 07:00 HIV 1&2 Antibody Screen Negative 09/05/17 07:00 HIV P24 Antigen Negative 09/05/17 07:00 Assessment: 09/06/17 11:58 withdrawal symptom Plan: continue detox
[2017-09-06] MEDS: chlordiazePOXIDE 5 MG CAPSULE PO SCH ×2 (17:19→22:26)
[2017-09-06] MEDS: THIAMINE HCL 100 MG TABLET (FP) PO SCH (22:25)
[2017-09-06] MEDS: hydrOXYzine PAMOATE 50 MG CAPSULE (FP) PO PRN (22:26)
[2017-09-06] MEDS: MELATONIN 5 MG TABLETS PO PRN (22:27)
[2017-09-07] MEDS: chlordiazePOXIDE 5 MG CAPSULE PO SCH ×2 (05:45→10:46)
--- NOTE | 2017-09-07 09:50 | PN ---
BHS Progress Note (SOAP) Subjective: FEELING BETTER NO TREMOR LESS SWEAT SOCIAL WITH PEERS IN DAY ROOM Objective: 09/07/17 09:48 Vital Signs Temperature 98.1 F 09/07/17 09:38 Pulse Rate 89 09/07/17 09:38 Respiratory Rate 18 09/07/17 09:38 Blood Pressure 139/89 09/07/17 09:38 O2 Sat by Pulse Oximetry (%) Laboratory Last Values WBC 4.4 K/mm3 (4.0-10.0) 09/05/17 07:00 RBC 3.50 M/mm3 (3.60-5.2) L 09/05/17 07:00 Hgb 11.7 GM/dL (10.7-15.3) 09/05/17 07:00 Hct 33.6 % (32.4-45.2) 09/05/17 07:00 MCV 96.0 fl (80-96) 09/05/17 07:00 MCH 33.5 pg (25.7-33.7) 09/05/17 07:00 MCHC 34.9 g/dl (32.0-36.0) 09/05/17 07:00 RDW 15.0 % (11.6-15.6) 09/05/17 07:00 Plt Count 174 K/MM3 (134-434) 09/05/17 07:00 MPV 7.0 fl (7.5-11.1) L 09/05/17 07:00 Sodium 137 mmol/L (136-145) 09/05/17 07:00 Potassium 3.6 mmol/L (3.5-5.1) 09/05/17 07:00 Chloride 99 mmol/L (98-107) 09/05/17 07:00 Carbon Dioxide 29 mmol/L (21-32) 09/05/17 07:00 Anion Gap 9 (8-16) 09/05/17 07:00 BUN 10 mg/dL (7-18) 09/05/17 07:00 Creatinine 0.7 mg/dL (0.55-1.02) 09/05/17 07:00 Creat Clearance w eGFR > 60 (>60) 09/05/17 07:00 Random Glucose 80 mg/dL (74-106) 09/05/17 07:00 Calcium 7.6 mg/dL (8.5-10.1) L 09/05/17 07:00 Total Bilirubin 0.4 mg/dL (0.2-1.0) D 09/05/17 07:00 AST 55 U/L (15-37) H 09/05/17 07:00 ALT 46 U/L (12-78) 09/05/17 07:00 Alkaline Phosphatase 66 U/L (45-117) 09/05/17 07:00 Total Protein 7.6 g/dl (6.4-8.2) 09/05/17 07:00 Albumin 3.7 g/dl (3.4-5.0) 09/05/17 07:00 Urine Color Ltyellow 09/04/17 17:39 Urine Appearance Clear 09/04/17 17:39 Urine pH 6.0 (5.0-8.0) 09/04/17 17:39 Ur Specific [place] 1.020 (1.001-1.035) 09/04/17 17:39 Urine Protein Negative (NEGATIVE) 09/04/17 17:39 Urine Glucose (UA) 1+ (NEGATIVE) H 09/04/17 17:39 Urine Ketones Trace (NEGATIVE) H 09/04/17 17:39 Urine Blood Negative (NEGATIVE) 09/04/17 17:39 Urine Nitrite Negative (NEGATIVE) 09/04/17 17:39 Urine Bilirubin Negative (<2.0 mg/dL) 09/04/17 17:39 Urine Urobilinogen Negative mg/dL (0.2-1.0) 09/04/17 17:39 Ur Leukocyte Esterase Negative (NEGATIVE) 09/04/17 17:39 RPR Titer Nonreactive (NONREACTIVE) 09/05/17 07:00 HIV 1&2 Antibody Screen Negative 09/05/17 07:00 HIV P24 Antigen Negative 09/05/17 07:00 CALCIUM SUPPLEMENT LAB NOTED 09/07/17 09:49 Assessment: 09/07/17 09:49 MILD WITHDRAWAL SX LOW CALCIUM Plan: CONTINUE DETOX CALCIUM SUPPLEMENT
[2017-09-07] MEDS: PRENATAL VITAMINS W/ FOLIC ACID TABLET (FP) PO SCH (10:47)
[2017-09-07] MEDS: CALCIUM 250MG/VIT-D 125 UNITS 1 COMBO TABLET PO SCH ×2 (11:50→22:23)
[2017-09-07] MEDS: chlordiazePOXIDE HCL 10 MG CAPSULE PO SCH ×2 (17:40→22:22)
[2017-09-07] MEDS: hydrOXYzine PAMOATE 50 MG CAPSULE (FP) PO PRN (22:22)
[2017-09-07] MEDS: THIAMINE HCL 100 MG TABLET (FP) PO SCH (22:22)
[2017-09-07] MEDS: MELATONIN 5 MG TABLETS PO PRN (22:23)
[2017-09-08] MEDS: chlordiazePOXIDE HCL 10 MG CAPSULE PO SCH (06:14)
[2017-09-08 09:20] VITALS: BP 127/77; PULSE 80; TEMP 98.1
--- NOTE | 2017-09-08 11:04 | DS ---
[facility] Detox Discharge Summary Admission Date: 09/04/17 Discharge Date: 09/08/17 - History Present History: Alcohol Dependence Additional Comments: 47 years old female admitted 09/04/17 for alcohol withdrawal sx completed detox regimen tolerate well denies alcohol withdrawal sx alert oriented x 3 no acute distress aftercare [facility] for medical mental and addiction issues brief motivational intervention promotes sobriety - Physical Exam Results Vital Signs: Vital Signs Temperature 98.1 F 09/08/17 09:20 Pulse Rate 80 09/08/17 09:20 Respiratory Rate 16 09/08/17 09:20 Blood Pressure 127/77 09/08/17 09:20 O2 Sat by Pulse Oximetry (%) Pertinent Admission Physical Exam Findings: alcohol withdrawal sx Vital Signs Temperature 98.1 F 09/08/17 09:20 Pulse Rate 80 09/08/17 09:20 Respiratory Rate 16 09/08/17 09:20 Blood Pressure 127/77 09/08/17 09:20 O2 Sat by Pulse Oximetry (%) Laboratory Last Values WBC 4.4 K/mm3 (4.0-10.0) 09/05/17 07:00 RBC 3.50 M/mm3 (3.60-5.2) L 09/05/17 07:00 Hgb 11.7 GM/dL (10.7-15.3) 09/05/17 07:00 Hct 33.6 % (32.4-45.2) 09/05/17 07:00 MCV 96.0 fl (80-96) 09/05/17 07:00 MCH 33.5 pg (25.7-33.7) 09/05/17 07:00 MCHC 34.9 g/dl (32.0-36.0) 09/05/17 07:00 RDW 15.0 % (11.6-15.6) 09/05/17 07:00 Plt Count 174 K/MM3 (134-434) 09/05/17 07:00 MPV 7.0 fl (7.5-11.1) L 09/05/17 07:00 Sodium 137 mmol/L (136-145) 09/05/17 07:00 Potassium 3.6 mmol/L (3.5-5.1) 09/05/17 07:00 Chloride 99 mmol/L (98-107) 09/05/17 07:00 Carbon Dioxide 29 mmol/L (21-32) 09/05/17 07:00 Anion Gap 9 (8-16) 09/05/17 07:00 BUN 10 mg/dL (7-18) 09/05/17 07:00 Creatinine 0.7 mg/dL (0.55-1.02) 09/05/17 07:00 Creat Clearance w eGFR > 60 (>60) 09/05/17 07:00 Random Glucose 80 mg/dL (74-106) 09/05/17 07:00 Calcium 7.6 mg/dL (8.5-10.1) L 09/05/17 07:00 Total Bilirubin 0.4 mg/dL (0.2-1.0) D 09/05/17 07:00 AST 55 U/L (15-37) H 09/05/17 07:00 ALT 46 U/L (12-78) 09/05/17 07:00 Alkaline Phosphatase 66 U/L (45-117) 09/05/17 07:00 Total Protein 7.6 g/dl (6.4-8.2) 09/05/17 07:00 Albumin 3.7 g/dl (3.4-5.0) 09/05/17 07:00 Urine Color Ltyellow 09/04/17 17:39 Urine Appearance Clear 09/04/17 17:39 Urine pH 6.0 (5.0-8.0) 09/04/17 17:39 Ur Specific [place] 1.020 (1.001-1.035) 09/04/17 17:39 Urine Protein Negative (NEGATIVE) 09/04/17 17:39 Urine Glucose (UA) 1+ (NEGATIVE) H 09/04/17 17:39 Urine Ketones Trace (NEGATIVE) H 09/04/17 17:39 Urine Blood Negative (NEGATIVE) 09/04/17 17:39 Urine Nitrite Negative (NEGATIVE) 09/04/17 17:39 Urine Bilirubin Negative (<2.0 mg/dL) 09/04/17 17:39 Urine Urobilinogen Negative mg/dL (0.2-1.0) 09/04/17 17:39 Ur Leukocyte Esterase Negative (NEGATIVE) 09/04/17 17:39 RPR Titer Nonreactive (NONREACTIVE) 09/05/17 07:00 HIV 1&2 Antibody Screen Negative 09/05/17 07:00 HIV P24 Antigen Negative 09/05/17 07:00 lab noted calcium supplement - Treatment Hospital Course: Detox Protocol Followed, Detoxed Safely, Responded well, Discharged Condition Good, Rehab Referral Accepted Patient has Accepted a Rehab Referral to: [facility] - Medication Discharge Medications: Ambulatory Orders Albuterol Sulfate Inhaler - [Ventolin HFA Inhaler -] 2 inh IH Q4H PRN #1 inh Calcium 250Mg/Vit-D 125 Units [Oscal 250 mg+D -] 1 tab PO BID #60 tab 09/08/17 - Diagnosis (1) Essential (primary) hypertension Current Visit: Yes Status: Chronic (2) Hypokalemia Current Visit: Yes Status: Chronic (3) Alcohol dependence with uncomplicated withdrawal Current Visit: Yes Status: Acute (4) Asthma Current Visit: Yes Status: Chronic Qualifiers: Asthma severity: mild Asthma persistence: intermittent Asthma complication type: with status asthmaticus Qualified Code(s): J45.22 - Mild intermittent asthma with status asthmaticus - AMA Did Patient Leave Against Medical Advice: No
[2017-09-08] MEDS: PRENATAL VITAMINS W/ FOLIC ACID TABLET (FP) PO SCH (11:34)
[2017-09-08] MEDS: CALCIUM 250MG/VIT-D 125 UNITS 1 COMBO TABLET PO SCH (11:34)
== END 2017-09-08 10:27 | disposition home or self-care (01) | DRG 775 ==
LOC: YASAS 14:47 → Y6N 16:38
PROVIDERS: ADMIT Surgery; ATTEND Surgery
PROC: HZ2ZZZZ Detoxification Services for Substance Abuse Treatment (ICD-10-PCS; principal; 2017-09-04)
DX: F10.230 Alcohol dependence with withdrawal, uncomplicated (principal); F10.24 Alcohol dependence with alcohol-induced mood disorder; F90.9 Attention-deficit hyperactivity disorder, unspecified type; F51.05 Insomnia due to other mental disorder; F19.24 Other psychoactive substance dependence with psychoactive substance-induced mood disorder; F60.3 Borderline personality disorder; I10 Essential (primary) hypertension; E87.6 Hypokalemia; J45.22 Mild intermittent asthma with status asthmaticus; D64.9 Anemia, unspecified; Z72.0 Tobacco use; Z86.69 Personal history of other diseases of the nervous system and sense organs; Z87.898 Personal history of other specified conditions; Z86.79 Personal history of other diseases of the circulatory system; Z88.1 Allergy status to other antibiotic agents
CPT/HCPCS: 36415; 80053; 81003; 85027; 86593; 87389; 93005; 93010

== ENCOUNTER 2018-08-24 19:28 | Inpatient (IN) | payer OTHER ==
[2018-08-24 20:01] VITALS: BMI 19.1
--- NOTE | 2018-08-24 21:10 | HP ---
CIWA Score Nausea/Vomitin-Mild Nausea/No Vomiting Muscle Tremors: 4-Moderate,w/Arms Extend Anxiety: 4-Mod. Anxious/Guarded Agitation: 4-Moderately Restless Paroxysmal Sweats: 3 Orientation: 2-Disoriented Date<2 days Tacttile Disturbances: 0-None Auditory Disturbances: 0-None Visual Disturbances: 0-None Headache: 0-None Present CIWA-Ar Total Score: 18 - Admission Criteria OASAS Guidelines: Admission for Medically Managed Detox: Requires at least one of the followin. CIWA greater than 12 2. Seizures within the past 24 hours 3. Delirium tremens within the past 24 hours 4. Hallucinations within the past 24 hours 5. Acute intervention needed for co occurring medical disorder 6. Acute intervention needed for co occurring psychiatric disorder 7. Severe withdrawal that cannot be handled at a lower level of care (continued vomiting, continued diarrhea, abnormal vital signs) requiring intravenous medication and/or fluids 8. Patient presents the following: CIWA greater than 12 Admission Criteria Met: Admission criteria met Admission ROS [facility] Chief Complaint: C/O WORSENING WITHDRAWAL SX'S. SEEKING DETOX TXMENT Allergies/Adverse Reactions: Allergies Allergy/AdvReac Type Severity Reaction Status Date / Time clarithromycin [From Biaxin] Allergy Verified 09/04/17 15:26 History of Present Illness: 48 Y.O. FEMALE WITH LONG HX OF ALCOHOLISM HERE FOR DETOX. CLIENT IS SELF REFERRED SHE IS KNOWN TO THIS PROGRAM. HE LAST ADMISSION ONE OF MANY WAS LAST 08/2018. SHE PRESENTS TODAY INTOXICATED WITH C/O WORSENING WITHDRAWAL SX'S SO SHE CANT STOP DRINKING. [id number] WITH CIWA OF 18. REPORTS LONGEST CLEAN TIME 45 DAYS IN A SOBER HOUSE. DENIES ANY OTHER ILLICIT SUBSTANCE ABUSE. SHE REPORTS HX/O SEIZURES R/T ALCOHOL WITHDRAWAL. DENIES SI/HI AVH. DOMICILED, UNEMPLOYED, DENIES LEGALS. Exam Limitations: Intoxication (A/O X2) - Ebola screening Have you traveled outside of the country in the last 21 days: No Have you had contact with anyone from an Ebola affected area: No Do you have a fever: No - Review of Systems Constitutional: Chills, Loss of Appetite, Night Sweats, Changes in sleep EENT: reports: No Symptoms Reported Respiratory: reports: No Symptoms reported Cardiac: reports: No Symptoms Reported GI: reports: Nausea, Poor Appetite, Poor Fluid Intake : reports: No Symptoms Reported Musculoskeletal: reports: No Symptoms Reported Integumentary: reports: No Symptoms Reported Neuro: reports: Seizure (HX/O WITHDRAWAL SZ), Tremors Endocrine: reports: No Symptoms Reported Hematology: reports: Easy Bruising Psychiatric: reports: Orientated x3, Agitated (IRRITABLE), Anxious, Depressed Other Systems: Reviewed and Negative Patient History - Patient Medical History Hx Anemia: Yes (no iron) Hx Asthma: Yes (on albuterol inhaler) Hx Chronic Obstructive Pulmonary Disease (COPD): No Hx Cancer: No Hx Cardiac Disorders: No Hx Congestive Heart Failure: No Hx Hypertension: Yes Hx Hypercholesterolemia: No Hx Pacemaker: No HX Cerebrovascular Accident: No Hx Seizures: Yes (R/T ALCOHOL WITHDRAWAL) Hx Dementia: No Hx Diabetes: No Hx Gastrointestinal Disorders: No Hx Liver Disease: No Hx Genitourinary Disorders: No Hx Sexually Transmitted Disorders: No Hx Renal Disease (ESRD): No Hx Thyroid Disease: No Hx Human Immunodeficiency Virus (HIV): No Hx Hepatitis C: No Hx Depression: Yes (anxiety,insomnia) Hx Suicide Attempt: No Hx Bipolar Disorder: No Hx Schizophrenia: No - Patient Surgical History Past Surgical History: Yes Hx Neurologic Surgery: No Hx Cataract Extraction: No Hx Cardiac Surgery: No Hx Lung Surgery: No Hx Breast Surgery: No Hx Breast Biopsy: No Hx Abdominal Surgery: Yes (ectopic rght in 1992 at [facility]) Hx Appendectomy: No Hx Cholecystectomy: No Hx Genitourinary Surgery: No Hx Section: No Hx Orthopedic Surgery: No Hx Hysterectomy: No Other Surgical History: induced in 2003 Anesthesia Reaction: No - PPD History Previous Implant?: Yes Documented Results: Negative w/proof Implanted On Prior [facility] Admission?: Yes Date: 10/14/16 Results: NEGATIVE o mm PPD to be Administered?: Yes - Reproductive History Patient is a Female of Child Bearing Age (11 -55 yrs old): Yes Last Menstrual Period: 07/26/17 (IRREG) Patient : No (NEG UHCG) - Smoking Cessation Smoking history: Current some day smoker Have you smoked in the past 12 months: Yes Aproximately how many cigarettes per day: 1 If you are a former smoker, when did you quit?: 5 years ago. Hx Chewing Tobacco Use: No Initiated information on smoking cessation: Yes 'Breaking Loose' booklet given: 08/24/18 - Substance & Tx. History Hx Alcohol Use: Yes Hx Substance Use: Yes Substance Use Type: Alcohol Hx Substance Use Treatment: No ([facility]) - Substances abused Alcohol Other (specify): VODKA Substance route: Oral Frequency: Daily Amount used: 1 pint of vodka Age of first use: 13 Date of last use: 08/24/18 Family Disease History - Family Disease History Family Disease History: CA: Mother (alcohol,,BREAST & OVARIAN), Other: Father (alcohol,), Mother, Brother (alcohol) Admission Physical Exam S - Vital Signs Vital Signs: Vital Signs - 24 hr 08/24/18 19:52 Temperature 98.2 F Pulse Rate 103 H Respiratory 19 Rate Blood Pressure 123/91 - Physical General Appearance: Yes: Mild Distress, Intoxicated, Tremorous, Irritable, Anxious, Other (CRYING) HEENTM: Yes: EOMI, Normocephalic, Normal Voice, MICHAEL, Pharynx Normal Respiratory: Yes: Chest Non-Tender, Lungs Clear, Normal Breath Sounds, No Respiratory Distress, No Accessory Muscle Use Neck: Yes: No masses,lesions,Nodules, Supple, Trachea in good position Breast: Yes: Breast Exam Deferred Cardiology: Yes: Regular Rhythm, Regular Rate, S1, S2 Abdominal: Yes: Normal Bowel Sounds, Non Tender, Soft Genitourinary: Yes: Within Normal Limits Back: Yes: Normal Inspection Musculoskeletal: Yes: full range of Motion, Gait Steady Extremities: Yes: Normal Capillary Refill, Normal Range of Motion, Non-Tender, Tremors Neurological: Yes: Alert, Motor Strength 5/5, Depressed Affect Integumentary: Yes: Dry, Warm, Other (RESOLVING ECCHYMOTIC AREAS TO LEFT SHOULDER AND LEFT FOREARM. CLIENT REPORTS FROM A FALL 2 WEEKS AGO) Lymphatic: Yes: Within Normal Limits - Diagnostic (1) At risk for dehydration due to poor fluid intake Current Visit: Yes Status: Acute (2) Substance induced mood disorder Current Visit: Yes Status: Suspected (3) Alcohol dependence with uncomplicated withdrawal Current Visit: Yes Status: Acute (4) Alcohol related seizure Current Visit: Yes Status: Chronic Comment: HX/O (5) Alcohol-induced anxiety disorder Current Visit: Yes Status: Suspected Comment: Vistaril 25mg q4h ordered. (6) Anemia Current Visit: Yes Status: Chronic (7) Drug-induced mood disorder Current Visit: Yes Status: Suspected (8) Insomnia Current Visit: Yes Status: Chronic Qualifiers: Insomnia type: alcohol-induced Qualified Code(s): F10.982 - Alcohol use, unspecified with alcohol-induced sleep disorder (9) Asthma Current Visit: Yes Status: Chronic Qualifiers: Asthma severity: mild Asthma persistence: intermittent Asthma complication type: uncomplicated Qualified Code(s): J45.20 - Mild intermittent asthma, uncomplicated (10) Essential (primary) hypertension Current Visit: Yes Status: Chronic Cleared for Admission S - Detox or Rehab [facility] Level of Care: Medically Managed Detox Regimen/Protocol: Librium Claeared for Rehab Admission: No Breathalyzer - Breathalyzer Breathalyzer: 0.319 Urine Drug Screen - Test Device Lot number: [id number] Expiration date: 11/26/19 - Control Is test valid?: Yes - Results Drug screen NEGATIVE: Yes Inpatient Rehab Admission - Rehab Decision to Admit Inpatient rehab admission?: No
[2018-08-24] MEDS ORDERED: DICYCLOMINE HCL 10 MG CAPSULE PO PRN (21:15)
[2018-08-24] MEDS ORDERED: NICOTINE POLACRILEX 2 MG GUM BUC PRN (21:15)
[2018-08-24] MEDS ORDERED: ONDANSETRON *ODT* 4 MG TABLET SL PRN (21:15)
[2018-08-24] MEDS ORDERED: guaiFENesin 200 MG/10 ML 10 ML UNIT-DOSE CUPS PO PRN (21:15)
[2018-08-24] MEDS ORDERED: MENTHOL/PHENOL 1 EACH UD MM PRN (21:15)
[2018-08-24] MEDS ORDERED: MAGNESIUM HYDROX 2400MG/30ML ORAL SUSPENSION 30 ML CUP PO PRN (21:15)
[2018-08-24] MEDS ORDERED: MAG HYDROX/AL HYDROX/SIMETH 30 ML UNIT-DOSE CUP PO PRN (21:15)
[2018-08-24] MEDS ORDERED: MAGNESIUM CITRATE 300 ML BOTTLE PO PRN (21:15)
[2018-08-24] MEDS ORDERED: BISMUTH SUBSALICYLATE 524 MG/30 ML UD PO PRN (21:15)
[2018-08-24] MEDS ORDERED: IBUPROFEN 400 MG TABLET (FP) PO PRN (21:15)
[2018-08-24] MEDS ORDERED: chlordiazePOXIDE HCL 25 MG CAPSULE PO PRN (21:15)
[2018-08-24] MEDS ORDERED: ACETAMINOPHEN 325 MG TABLET (FP) PO PRN ×2 (21:15)
[2018-08-24] MEDS ORDERED: MELATONIN 5 MG TABLETS PO PRN (21:15)
[2018-08-24] MEDS ORDERED: P-EPHED 60MG/TRIPROLIDI 2.5MG TABLET PO PRN (21:15)
[2018-08-24] MEDS: chlordiazePOXIDE HCL 25 MG CAPSULE PO SCH (22:35)
[2018-08-24] MEDS: BACLOFEN 10 MG TABLET (FP) PO PRN (22:35)
[2018-08-24] MEDS: THIAMINE HCL 100 MG TABLET (FP) PO SCH (22:36)
[2018-08-25] MEDS: chlordiazePOXIDE HCL 25 MG CAPSULE PO SCH ×4 (06:07→22:24)
[2018-08-25] MEDS: PRENATAL VITAMINS W/ FOLIC ACID TABLET (FP) PO SCH (10:33)
[2018-08-25 10:51] LABS: HEMATOCRIT 32.1 % (32.4-45.2); HEMOGLOBIN 11.1 GM/dL (10.7-15.3); MCH 36.3 pg (25.7-33.7); MCHC 34.6 g/dl (32.0-36.0); MEAN CELL VOLUME 104.9 fl (80-96); PLATELET COUNT 218 K/MM3 (134-434); RBC 3.06 M/mm3 (3.60-5.2); RDW 16.9 % (11.6-15.6); WHITE BLOOD COUNT 3.9 K/mm3 (4.0-10.0)
[2018-08-25 11:09] LABS: BILIRUBIN,TOTAL 0.5 mg/dL (0.2-1); CREATININE 0.7 mg/dL (0.55-1.3); POTASSIUM 3.8 mmol/L (3.5-5.1); TOT PROT 7.7 g/dl (6.4-8.2)
--- NOTE | 2018-08-25 11:45 | PN ---
S CIWA - CIWA Score Nausea/Vomitin-No Nausea/No Vomiting Muscle Tremors: 3 Anxiety: 3 Agitation: 3 Paroxysmal Sweats: 3 Orientation: 0-Oriented Tacttile Disturbances: 0-None Auditory Disturbances: 0-None Visual Disturbances: 0-None Headache: 0-None Present CIWA-Ar Total Score: 12 BHS Progress Note (SOAP) Subjective: tired irritable sweats shakes interrupted sleep agitation Objective: 08/25/18 11:41 Vital Signs Temperature 98.4 F 08/25/18 10:32 Pulse Rate 98 H 08/25/18 10:32 Respiratory Rate 18 08/25/18 10:32 Blood Pressure 127/77 08/25/18 10:32 O2 Sat by Pulse Oximetry (%) Laboratory Tests 08/24/18 08/25/18 08/25/18 20:28 07:00 07:00 WBC 3.9 L RBC 3.06 L Hgb 11.1 Hct 32.1 L MCV 104.9 H MCH 36.3 H MCHC 34.6 RDW 16.9 H Plt Count 218 D MPV 7.0 L Sodium 138 Potassium 3.8 Chloride 106 Carbon Dioxide 29 Anion Gap 3 L BUN 14 Creatinine 0.7 Est GFR (CKD-EPI)AfAm 119.58 Est GFR (CKD-EPI)NonAf 103.18 Random Glucose 140 H Calcium 8.0 L Total Bilirubin 0.5 AST 125 H ALT 73 H Alkaline Phosphatase 72 Total Protein 7.7 Albumin 4.0 POC Urine HCG, Qual Negative aaox3 ambulating no acute distress Assessment: 08/25/18 11:42 withdrawal sx Plan: continue detox increase fluids pending labs
[2018-08-25] MEDS: hydrOXYzine PAMOATE 25 MG CAPSULE (FP) PO PRN ×2 (12:50→18:25)
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
[2018-08-25] MEDS ORDERED: COLLOIDAL OATMEAL 1 BAR EACH TP PRN (14:51)
[2018-08-25] MEDS ORDERED: MINERAL OIL/PETROLAT/WATER TOPICAL CREAM 113 GM JAR TP PRN (14:52)
[2018-08-25 16:54] LABS: PH,URINE 6.5 (5.0-8.0); URINE APPEARANCE CLEAR; URINE BILIRUBIN NEGATIVE (NEGATIVE); URINE COLOR YELLOW; URINE GLUCOSE (UA) NEGATIVE (NEGATIVE); URINE KETONE NEGATIVE (NEGATIVE); URINE LEUK ESTERASE NEGATIVE (NEGATIVE); URINE NITRITE NEGATIVE (NEGATIVE); URINE PROTEIN NEGATIVE (NEGATIVE); URINE UROBILINOGEN 0.2 mg/dL (0.2-1.0)
[2018-08-25] MEDS: SUVOREXANT 10 MG TABLET PO PRN (22:24)
[2018-08-25] MEDS: THIAMINE HCL 100 MG TABLET (FP) PO SCH (22:24)
[2018-08-25] MEDS: BACLOFEN 10 MG TABLET (FP) PO PRN (22:24)
[2018-08-26] MEDS: chlordiazePOXIDE HCL 25 MG CAPSULE PO SCH ×3 (05:39→16:43)
[2018-08-26] MEDS: METHOCARBAMOL 500 MG TABLET PO PRN ×2 (05:42→22:37)
[2018-08-26] MEDS: hydrOXYzine PAMOATE 25 MG CAPSULE (FP) PO PRN ×3 (09:40→22:36)
[2018-08-26] MEDS: PRENATAL VITAMINS W/ FOLIC ACID TABLET (FP) PO SCH (10:15)
--- NOTE | 2018-08-26 12:19 | PN ---
S CIWA - CIWA Score Nausea/Vomitin-No Nausea/No Vomiting Muscle Tremors: 2 Anxiety: 2 Agitation: 2 Paroxysmal Sweats: 3 Orientation: 0-Oriented Tacttile Disturbances: 0-None Auditory Disturbances: 0-None Visual Disturbances: 0-None Headache: 2-Mild CIWA-Ar Total Score: 11 S Progress Note (SOAP) Subjective: c/o sweats, anxiety, tremors, and headache. Objective: 08/26/18 12:18 Vital Signs 08/26/18 08/26/18 06:00 09:12 Temperature 97.7 F 97.3 F L Pulse Rate 71 94 H Respiratory 18 18 Rate Blood Pressure 141/91 143/99 Lab Results WBC 3.9 K/mm3 (4.0-10.0) L 08/25/18 07:00 RBC 3.06 M/mm3 (3.60-5.2) L 08/25/18 07:00 Hgb 11.1 GM/dL (10.7-15.3) 08/25/18 07:00 Hct 32.1 % (32.4-45.2) L 08/25/18 07:00 MCV 104.9 fl (80-96) H 08/25/18 07:00 MCHC 34.6 g/dl (32.0-36.0) 08/25/18 07:00 RDW 16.9 % (11.6-15.6) H 08/25/18 07:00 Plt Count 218 K/MM3 (134-434) D 08/25/18 07:00 Sodium 138 mmol/L (136-145) 08/25/18 07:00 Potassium 3.8 mmol/L (3.5-5.1) 08/25/18 07:00 Chloride 106 mmol/L (98-107) 08/25/18 07:00 Carbon Dioxide 29 mmol/L (21-32) 08/25/18 07:00 Anion Gap 3 MMOL/L (8-16) L 08/25/18 07:00 BUN 14 mg/dL (7-18) 08/25/18 07:00 Creatinine 0.7 mg/dL (0.55-1.3) 08/25/18 07:00 Random Glucose 140 mg/dL (74-106) H 08/25/18 07:00 Calcium 8.0 mg/dL (8.5-10.1) L 08/25/18 07:00 Labs noted. Assessment: 08/26/18 12:18 AOX3, in no acute distress. full rom, ambulating in the unit withdrawal symptoms. Plan: continue detox. increase fluids.
[2018-08-26] MEDS: chlordiazePOXIDE HCL 10 MG CAPSULE PO SCH (22:35)
[2018-08-26] MEDS: SUVOREXANT 10 MG TABLET PO PRN (22:35)
[2018-08-26] MEDS: THIAMINE HCL 100 MG TABLET (FP) PO SCH (22:35)
[2018-08-26] MEDS ORDERED: chlordiazePOXIDE HCL 10 MG CAPSULE PO PRN (23:00)
[2018-08-27] MEDS: chlordiazePOXIDE HCL 10 MG CAPSULE PO SCH ×4 (05:32→22:38)
[2018-08-27] MEDS: hydrOXYzine PAMOATE 25 MG CAPSULE (FP) PO PRN ×2 (05:33→18:04)
[2018-08-27] MEDS: METHOCARBAMOL 500 MG TABLET PO PRN ×3 (05:33→22:38)
[2018-08-27] MEDS: PRENATAL VITAMINS W/ FOLIC ACID TABLET (FP) PO SCH (10:14)
[2018-08-27] MEDS ORDERED: cloNIDine HCL 0.1 MG TABLET PO PRN (16:16)
--- NOTE | 2018-08-27 16:16 | PN ---
[facility] CIWA - CIWA Score Nausea/Vomitin-Mild Nausea/No Vomiting Muscle Tremors: 2 Anxiety: 2 Agitation: 2 Paroxysmal Sweats: 2 Orientation: 0-Oriented Tacttile Disturbances: 0-None Auditory Disturbances: 0-None Visual Disturbances: 0-None Headache: 0-None Present CIWA-Ar Total Score: 9 S Progress Note (SOAP) Subjective: Anxious, spasm in legs, tremor, interrupted sleep, sweating Objective: 08/27/18 16:15 Last Vital Signs Temp Pulse Resp BP Pulse Ox 96.1 F L 89 18 147/98 08/27/18 14:00 08/27/18 14:00 08/27/18 14:00 08/27/18 14:00 Elevated b/p: start clonidine prn Laboratory Tests 08/24/18 08/25/18 08/25/18 20:28 07:00 07:00 WBC 3.9 L RBC 3.06 L Hgb 11.1 Hct 32.1 L MCV 104.9 H MCH 36.3 H MCHC 34.6 RDW 16.9 H Plt Count 218 D MPV 7.0 L Sodium 138 Potassium 3.8 Chloride 106 Carbon Dioxide 29 Anion Gap 3 L BUN 14 Creatinine 0.7 Est GFR (CKD-EPI)AfAm 119.58 Est GFR (CKD-EPI)NonAf 103.18 Random Glucose 140 H Calcium 8.0 L Total Bilirubin 0.5 AST 125 H ALT 73 H Alkaline Phosphatase 72 Total Protein 7.7 Albumin 4.0 Urine Color Urine Appearance Urine pH Ur Specific [place] Urine Protein Urine Glucose (UA) Urine Ketones Urine Blood Urine Nitrite Urine Bilirubin Urine Urobilinogen Ur Leukocyte Esterase POC Urine HCG, Qual Negative RPR Titer HIV 1&2 Antibody Screen HIV P24 Antigen 08/25/18 08/25/18 08/25/18 07:00 07:00 11:15 WBC RBC Hgb Hct MCV MCH MCHC RDW Plt Count MPV Sodium Potassium Chloride Carbon Dioxide Anion Gap BUN Creatinine Est GFR (CKD-EPI)AfAm Est GFR (CKD-EPI)NonAf Random Glucose Calcium Total Bilirubin AST ALT Alkaline Phosphatase Total Protein Albumin Urine Color Yellow Urine Appearance Clear Urine pH 6.5 Ur Specific [place] 1.006 L Urine Protein Negative Urine Glucose (UA) Negative Urine Ketones Negative Urine Blood Negative Urine Nitrite Negative Urine Bilirubin Negative Urine Urobilinogen 0.2 Ur Leukocyte Esterase Negative POC Urine HCG, Qual RPR Titer Nonreactive HIV 1&2 Antibody Screen Negative HIV P24 Antigen Negative Labs reviewed: anemia, elevated AST/ALT, elevated glucose Assessment: 08/27/18 16:20 Withdrawal symptoms Noted with mild anemia, elevated LFTs (AST/ALT) and hyperglycemia Plan: Continue detox Encouraged PO water hydration Anemia: most likely r/t alcoholism, encouraged to eat more green leafy vegetables Elevated LFTs (AST, ALT): most likely r/t alcohol dependence, repeat AST, ALT Hyperglycemia: could be r/t withdrawal, repeat fasting glucose, send A1c
[2018-08-27] MEDS: SUVOREXANT 10 MG TABLET PO PRN (22:40)
[2018-08-27] MEDS: THIAMINE HCL 100 MG TABLET (FP) PO SCH (23:05)
[2018-08-28] MEDS: METHOCARBAMOL 500 MG TABLET PO PRN (06:44)
[2018-08-28] MEDS: hydrOXYzine PAMOATE 25 MG CAPSULE (FP) PO PRN (06:44)
[2018-08-28 09:18] VITALS: BP 134/94; PULSE 90; TEMP 98.2
[2018-08-28 10:09] LABS: GLUCOSE,FASTING 92 mg/dL (74-106); SGOT/AST 75 U/L (15-37); SGPT/ALT 53 U/L (13-61)
[2018-08-28] MEDS: chlordiazePOXIDE HCL 10 MG CAPSULE PO SCH (10:21)
[2018-08-28] MEDS: PRENATAL VITAMINS W/ FOLIC ACID TABLET (FP) PO SCH (10:21)
--- NOTE | 2018-08-28 10:39 | DS ---
[facility] Detox Discharge Summary Admission Date: 08/24/18 Discharge Date: 08/28/18 - History Present History: Alcohol Dependence - Physical Exam Results Vital Signs: Vital Signs Temperature 98.2 F 08/28/18 09:17 Pulse Rate 90 08/28/18 09:17 Respiratory Rate 18 08/28/18 09:17 Blood Pressure 134/94 08/28/18 09:17 O2 Sat by Pulse Oximetry (%) - Treatment Hospital Course: Detox Protocol Followed, Detoxed Safely, Responded well, Discharged Condition Good, Rehab Referral Accepted - Medication Discharge Medications: Ambulatory Orders NK [No Known Home Medication] 08/24/18 - Diagnosis (1) Alcohol dependence with uncomplicated withdrawal Current Visit: Yes Status: Chronic (2) Alcohol-induced anxiety disorder Current Visit: Yes Status: Acute (3) Alcohol-induced sleep disorder Current Visit: Yes Status: Acute (4) Alcohol related seizure Current Visit: Yes Status: Chronic (5) Insomnia Current Visit: Yes Status: Chronic Qualifiers: Insomnia type: alcohol-induced Qualified Code(s): F10.982 - Alcohol use, unspecified with alcohol-induced sleep disorder (6) Alcohol-induced anxiety disorder Current Visit: Yes Status: Suspected (7) Drug-induced mood disorder Current Visit: Yes Status: Suspected (8) Substance induced mood disorder Current Visit: Yes Status: Suspected (9) Insomnia secondary to depression with anxiety Current Visit: No Status: Acute (10) ADHD (attention deficit hyperactivity disorder) Current Visit: No Status: Chronic (11) Borderline personality disorder Current Visit: No Status: Suspected - AMA Did Patient Leave Against Medical Advice: No (pt declined rehab; referred to [facility] )
== END 2018-08-28 11:34 | disposition home or self-care (01) | DRG 775 ==
LOC: YASAS 19:28 → Y6N 21:45
PROVIDERS: ADMIT Surgery; ATTEND Surgery
PROC: HZ2ZZZZ Detoxification Services for Substance Abuse Treatment (ICD-10-PCS; principal; 2018-08-24)
DX: F10.230 Alcohol dependence with withdrawal, uncomplicated (principal); F10.280 Alcohol dependence with alcohol-induced anxiety disorder; F19.24 Other psychoactive substance dependence with psychoactive substance-induced mood disorder; F10.282 Alcohol dependence with alcohol-induced sleep disorder; F51.05 Insomnia due to other mental disorder; F60.3 Borderline personality disorder; F90.9 Attention-deficit hyperactivity disorder, unspecified type; I10 Essential (primary) hypertension; G40.509 Epileptic seizures related to external causes, not intractable, without status epilepticus; J45.20 Mild intermittent asthma, uncomplicated; G47.00 Insomnia, unspecified; R94.5 Abnormal results of liver function studies; D64.9 Anemia, unspecified; R73.9 Hyperglycemia, unspecified; Z88.3 Allergy status to other anti-infective agents
CPT/HCPCS: 36415; 80053; 81003; 81025; 82947; 83036; 84450; 84460; 85027; 86593; 87389; J0475

== ENCOUNTER 2019-01-15 18:09 | Inpatient (IN) | payer OTHER ==
--- NOTE | 2019-01-15 19:15 | HP ---
CIWA Score Nausea/Vomitin-No Nausea/No Vomiting Muscle Tremors: None Anxiety: 3 (Intermittent crying.) Agitation: 4-Moderately Restless Paroxysmal Sweats: 3 (Increased facial moisture) Orientation: 3-Disoriented Date>2 days Tacttile Disturbances: 0-None Auditory Disturbances: 0-None Visual Disturbances: 0-None Headache: 0-None Present CIWA-Ar Total Score: 13 - Admission Criteria OASAS Guidelines: Admission for Medically Managed Detox: Requires at least one of the followin. CIWA greater than 12 2. Seizures within the past 24 hours 3. Delirium tremens within the past 24 hours 4. Hallucinations within the past 24 hours 5. Acute intervention needed for co occurring medical disorder 6. Acute intervention needed for co occurring psychiatric disorder 7. Severe withdrawal that cannot be handled at a lower level of care (continued vomiting, continued diarrhea, abnormal vital signs) requiring intravenous medication and/or fluids 8. Patient presents the following: Acute intervention needed for co-occurring med or psych disorder (LACY: 0.387) Admission Criteria Met: Admission criteria met Admitting History and Physical - Past Medical History ...LMP: 07/26/17 (IRREG) - Smoking History Smoking history: Current some day smoker Have you smoked in the past 12 months: Yes Aproximately how many cigarettes per day: 1 If you are a former smoker, when did you quit?: 5 years ago. - Alcohol/Substance Use Hx Alcohol Use: Yes Admission ROS S - [facility] Chief Complaint: I need hel with my alcohol use. Allergies/Adverse Reactions: Allergies Allergy/AdvReac Type Severity Reaction Status Date / Time clarithromycin [From Biaxin] Allergy Verified 09/04/17 15:26 History of Present Illness: 48 yo presents w/ intoxication and seeking detox. Patient unsteady and not able to provide a urine tox. Current LACY: 0.387 Alcohol use since age 13. Current drinking 1-2 pints/day. Last drink earlier today Marijuana use: Current use 2 "hits" daily. Nicotine use 1 cig/month Denies other illicit drugs. B/P: 150/103. Patient is being admitted. but has a hx of seizures r/t alcohol withdrawal. Will send patient to ED until LACY is lower and can return to [facility] and start on detox protocols. Report given to Dr. Boyd @ [facility]. Exam Limitations: Intoxication (LACY: 0.387) - Ebola screening Have you traveled outside of the country in the last 21 days: No (N) Have you had contact with anyone from an Ebola affected area: No Have you been sick,other than usual withdrawal symptoms: No Do you have a fever: No - Review of Systems Constitutional: See HPI EENT: reports: No Symptoms Reported Respiratory: reports: No Symptoms reported Cardiac: reports: No Symptoms Reported GI: reports: No Symptoms Reported : reports: No Symptoms Reported Musculoskeletal: reports: No Symptoms Reported Integumentary: reports: No Symptoms Reported Neuro: reports: No Symptoms reported, See HPI Endocrine: reports: No Symptoms Reported Hematology: reports: No Symptoms Reported Psychiatric: reports: Agitated, Disorientated (ORIENTED X 2) Patient History - Patient Medical History Hx Anemia: Yes (no iron) Hx Asthma: Yes Hx Chronic Obstructive Pulmonary Disease (COPD): No Hx Cancer: No Hx Cardiac Disorders: No Hx Congestive Heart Failure: No Hx Hypertension: No Hx Hypercholesterolemia: No Hx Pacemaker: No HX Cerebrovascular Accident: No Hx Seizures: Yes Hx Dementia: No Hx Diabetes: No Hx Gastrointestinal Disorders: No Hx Liver Disease: No Hx Genitourinary Disorders: No Hx Sexually Transmitted Disorders: No Hx Renal Disease (ESRD): No Hx Thyroid Disease: No Hx Human Immunodeficiency Virus (HIV): No Hx Hepatitis C: No Hx Depression: Yes Hx Suicide Attempt: No Hx Bipolar Disorder: No Hx Schizophrenia: No - Patient Surgical History Past Surgical History: Yes Hx Neurologic Surgery: No Hx Cataract Extraction: No Hx Cardiac Surgery: No Hx Lung Surgery: No Hx Breast Surgery: No Hx Breast Biopsy: No Hx Abdominal Surgery: Yes (ectopic rght in 1992 at [facility]) Hx Appendectomy: No Hx Cholecystectomy: No Hx Genitourinary Surgery: No Hx Section: No Hx Orthopedic Surgery: No Hx Hysterectomy: No Other Surgical History: induced in 2003 Anesthesia Reaction: No - PPD History Previous Implant?: Yes Documented Results: Negative w/proof Implanted On Prior [facility] Admission?: Yes Date: 08/26/18 Results: NEGATIVE o mm PPD to be Administered?: No - Reproductive History Patient is a Female of Child Bearing Age (11 -55 yrs old): Yes Last Menstrual Period: 07/26/17 (IRREG) Patient : No - Smoking Cessation Smoking history: Current some day smoker Have you smoked in the past 12 months: Yes Aproximately how many cigarettes per day: 1 Hx Chewing Tobacco Use: No Initiated information on smoking cessation: Yes 'Breaking Loose' booklet given: 01/15/19 - Substance & Tx. History Hx Alcohol Use: Yes Hx Substance Use: Yes Substance Use Type: Alcohol, Marijuana Hx Substance Use Treatment: Yes (detox, rehab, sober housing) - Substances abused Alcohol Other (specify): VODKA Substance route: Oral Frequency: Daily Amount used: 1-2 pintS of vodka Age of first use: 13 Date of last use: 01/15/19 Admission Physical Exam [facility] - Physical General Appearance: Yes: Intoxicated, Thin, Sweating (Increased facial moisture) , Anxious HEENTM: Yes: EOMI (Jerking movement of eyes upon lateral gaze), Hearing grossly Normal, Normocephalic, Normal Voice, MICHAEL Respiratory: Yes: Lungs Clear, Normal Breath Sounds, No Respiratory Distress Neck: Yes: No masses,lesions,Nodules, Supple Breast: Yes: Breast Exam Deferred Cardiology: Yes: Regular Rhythm, Regular Rate Abdominal: Yes: Non Tender, Flat, Soft Genitourinary: Yes: Within Normal Limits Back: Yes: Normal Inspection Musculoskeletal: Yes: full range of Motion Extremities: Yes: Normal Capillary Refill Neurological: Yes: director of philanthropy II-XII NML intact (Jerking movement of eyes upon lateral gaze), Alert, Disoriented Integumentary: Yes: Normal Color, Warm Lymphatic: Yes: Within Normal Limits - Diagnostic (1) Alcohol dependence with intoxication, uncomplicated Current Visit: Yes Status: Acute (2) Alcohol related seizure Current Visit: Yes Status: Resolved Comment: HX/O (3) Elevated blood pressure reading Current Visit: Yes Status: Acute Comment: Prob r/t AUD (4) Cannabis dependence, uncomplicated Current Visit: Yes Status: Chronic Cleared for Admission [facility] - Detox or Rehab [facility] Level of Care: Medically Managed Detox Regimen/Protocol: Librium Claeared for Rehab Admission: No Breathalyzer - Breathalyzer Breathalyzer: 0.387 Urine Drug Screen - Test Device Lot number: [id number] Expiration date: 08/25/20 - Control Is test valid?: Yes - Results Drug screen NEGATIVE: No Inpatient Rehab Admission - Rehab Decision to Admit Inpatient rehab admission?: No
[2019-01-16] MEDS ORDERED: MAG HYDROX/AL HYDROX/SIMETH 30 ML UNIT-DOSE CUP PO PRN (00:03)
[2019-01-16] MEDS ORDERED: MENTHOL/PHENOL 1 EACH UD MM PRN (00:03)
[2019-01-16] MEDS ORDERED: MELATONIN 5 MG TABLETS PO PRN (00:03)
[2019-01-16] MEDS ORDERED: MAGNESIUM CITRATE 300 ML BOTTLE PO PRN (00:03)
[2019-01-16] MEDS ORDERED: ACETAMINOPHEN 325 MG TABLET (FP) PO PRN ×2 (00:03)
[2019-01-16] MEDS ORDERED: IBUPROFEN 400 MG TABLET (FP) PO PRN (00:03)
[2019-01-16] MEDS ORDERED: MAGNESIUM HYDROX 2400MG/30ML ORAL SUSPENSION 30 ML CUP PO PRN (00:03)
[2019-01-16] MEDS ORDERED: BISMUTH SUBSALICYLATE 524 MG/30 ML UD PO PRN (00:03)
[2019-01-16 04:08] VITALS: BMI 20.1
[2019-01-16] MEDS ORDERED: chlordiazePOXIDE HCL 10 MG CAPSULE PO PRN (04:13)
[2019-01-16] MEDS ORDERED: chlordiazePOXIDE HCL 25 MG CAPSULE PO PRN (04:52)
[2019-01-16] MEDS ORDERED: chlordiazePOXIDE HCL 25 MG CAPSULE PO SCH (05:00)
[2019-01-16] MEDS: chlordiazePOXIDE HCL 25 MG CAPSULE PO SCH ×4 (06:46→22:33)
[2019-01-16] MEDS ORDERED: COLLOIDAL OATMEAL 1 BAR EACH TP PRN (07:23)
[2019-01-16] MEDS: PRENATAL VITAMINS W/ FOLIC ACID TABLET (FP) PO SCH (10:31)
[2019-01-16] MEDS ORDERED: cloNIDine HCL 0.1 MG TABLET PO PRN (11:05)
--- NOTE | 2019-01-16 11:06 | PN ---
S CIWA - CIWA Score Nausea/Vomitin-Mild Nausea/No Vomiting Muscle Tremors: 3 Anxiety: 3 Agitation: 2 Paroxysmal Sweats: 1-Minimal Palms Moist Orientation: 1-Uncertain about Date (date of week) Tacttile Disturbances: 0-None Auditory Disturbances: 1-Very Mild Visual Disturbances: 0-None Headache: 0-None Present CIWA-Ar Total Score: 12 [facility] Progress Note (SOAP) Subjective: ambulating on hallway alert ate breakfast speech clearly tremor anxiety Objective: 01/16/19 11:03 Vital Signs Temperature 96.8 F L 01/16/19 09:13 Pulse Rate 118 H 01/16/19 09:13 Respiratory Rate 18 01/16/19 09:13 Blood Pressure 158/98 01/16/19 09:13 O2 Sat by Pulse Oximetry (%) 01/16/19 11:03 admission lab ordered for 01/17/19 01/16/19 11:06 bp elevation add amlodipine clonidine 01. mg po prn q6h Assessment: 01/16/19 11:06 alcohol withdrawal sx Plan: continue librium detox regimen
[2019-01-16] MEDS: amLODIPine BESYLATE 10 MG TABLET (FP) PO SCH (11:57)
[2019-01-16] MEDS ORDERED: FLU VACCINE QUAD 60 MCG/0.5 ML (MDV 19-20) IM ONE (12:00)
[2019-01-16] MEDS: METHOCARBAMOL 500 MG TABLET PO PRN (15:32)
--- NOTE | 2019-01-16 16:48 | CONSULT ---
[facility] Psychiatric Consult - Data Date of interview: 01/16/19 Admission source: [facility] Identifying data: Readmission to [facility] for this 48 y/o female self -referred for detoxification. HEIDE issues : alcohol and marihuana. Interviewed at [address] [place] [address]. Patient is single, no children, domiciled and employed. Substance Abuse History: Discussed with patient. Details in current [facility] report as follows : Smoking history: Current some day smoker. Have you smoked in the past 12 months: Yes. Aproximately how many cigarettes per day: 1. Hx Chewing Tobacco Use: No. Initiated information on smoking cessation: Yes. 'Breaking Loose' booklet given: 01/15/19. - Substance & Tx. History. Hx Alcohol Use: Yes. Hx Substance Use: Yes. Substance Use Type: Alcohol, Marijuana. Hx Substance Use Treatment: Yes (detox, rehab, sober housing). - Substances abused. Alcohol. Other (specify): VODKA. Substance route: Oral. Frequency : Daily. Amount used: 1-2 pintS of vodka. Age of first use: 13. Date of last use: 01/15/19 Medical History: Medical profile is remarkable for anemia, bronchial asthma, hypertension, withdrawal-related seizures and history of ectopic pregnacy (1992) . Psychiatric History: Patient denies history of psychiatric hospitalizations, OPD ccare or suicide attempts (in this interview). Review of records at [facility] reveal a different profile as evidenced by this report from Dr Bradley at encounter of 08/25/18 : " Reports that her first psychiatric contact was in when she was diagnosed with ADHD. She claims she didc not return to the next appointment because her mother did not believe the diagnosis was correct. In 2006, she was diagnosed with ADHD by a private psychiatrist in [place]. She said that she was prescribed Ritalin at first then switched to Adderall. From 2011 to 2015, she saw the staff psychiatrist while at [facility]( affiliated with [facility]) and was prescibed Adderall 20 mg/tid for ADHD and Xanax 0.5 mg/tid for anxiety. Since, her psychiatric contact has been limited to admission to admission for inpatient detox/rehab. She has had a few admissions to this facility since 2014 and has only been prescribed Ambien twice for insomnia. Denies previous psychiatric hospitalization or suicidal attempt." End of imported report. Patient is, therefore, not a reliable historian. Physical/Sexual Abuse/Trauma History: Patient denies. Additional Comment: Drug screen NEGATIVE: No. Mental Status Exam - Mental Status Exam Alert and Oriented to: Time, Place, Person Patient Appearance: Well Groomed Mood: Withdrawn Affect: Appropriate, Normal Range Patient Behavior: Fatigued, Appropriate, Cooperative Speech Pattern: Clear Voice Loudness: Normal Thought Process: Intact, Goal Oriented Thought Disorder: Not Present Hallucinations: Denies Suicidal Ideation: Denies Homicidal Ideation: Denies Insight/Judgement: Poor Sleep: Well Appetite: Good Gait/Station: Normal Psychiatric Findings - Problem List ([place] 1, 2,3) (1) Alcohol dependence with uncomplicated withdrawal Current Visit: Yes Status: Chronic (2) Cannabis dependence, uncomplicated Current Visit: Yes Status: Chronic - Initial Treatment Plan Initial Treatment Plan: Psychoeducation. Sleep hygiene. Detoxification. Observation.
[2019-01-16] MEDS: THIAMINE HCL 100 MG TABLET (FP) PO SCH (22:33)
[2019-01-17] MEDS ORDERED: chlordiazePOXIDE 5 MG CAPSULE PO SCH (05:00)
[2019-01-17] MEDS: chlordiazePOXIDE HCL 25 MG CAPSULE PO SCH ×4 (05:36→22:21)
[2019-01-17 09:48] LABS: HEMATOCRIT 32.9 % (32.4-45.2); HEMOGLOBIN 11.2 GM/dL (10.7-15.3); MCH 38.1 pg (25.7-33.7); MCHC 34.1 g/dl (32.0-36.0); MEAN CELL VOLUME 111.7 fl (80-96); MEAN PLT VOLUME 8.4 fl (7.5-11.1); PLATELET COUNT 60 K/MM3 (134-434); RBC 2.95 M/mm3 (3.60-5.2); RDW 14.6 % (11.6-15.6); WHITE BLOOD COUNT 2.3 K/mm3 (4.0-10.0)
[2019-01-17 10:28] LABS: ALBUMIN 3.7 g/dl (3.4-5.0); BILIRUBIN,TOTAL 1.2 mg/dL (0.2-1); BLOOD UREA NITROGEN 6.5 mg/dL (7-18); CALCIUM 7.9 mg/dL (8.5-10.1); CREATININE 0.7 mg/dL (0.55-1.3); TOT PROT 7.1 g/dl (6.4-8.2)
[2019-01-17] MEDS: METHOCARBAMOL 500 MG TABLET PO PRN ×2 (10:32→17:26)
[2019-01-17] MEDS: amLODIPine BESYLATE 10 MG TABLET (FP) PO SCH (10:32)
[2019-01-17] MEDS: PRENATAL VITAMINS W/ FOLIC ACID TABLET (FP) PO SCH (10:32)
[2019-01-17 10:50] LABS: POTASSIUM 2.6 mmol/L (3.5-5.1)
--- NOTE | 2019-01-17 11:58 | PN ---
[facility] CIWA - CIWA Score Nausea/Vomitin-Mild Nausea/No Vomiting Muscle Tremors: 2 Anxiety: 2 Agitation: 2 Paroxysmal Sweats: 1-Minimal Palms Moist Orientation: 0-Oriented Tacttile Disturbances: 0-None Auditory Disturbances: 1-Very Mild Visual Disturbances: 0-None Headache: 1-Very Mild CIWA-Ar Total Score: 10 [facility] Progress Note (SOAP) Subjective: doing well with librium detox regimen less tremor mild anxiety sleep better at night Objective: 01/17/19 11:56 Vital Signs Temperature 98.1 F 01/17/19 09:15 Pulse Rate 108 H 01/17/19 09:15 Respiratory Rate 17 01/17/19 09:15 Blood Pressure 135/93 01/17/19 09:15 O2 Sat by Pulse Oximetry (%) Laboratory Last Values WBC 2.3 K/mm3 (4.0-10.0) L 01/17/19 08:15 RBC 2.95 M/mm3 (3.60-5.2) L 01/17/19 08:15 Hgb 11.2 GM/dL (10.7-15.3) 01/17/19 08:15 Hct 32.9 % (32.4-45.2) 01/17/19 08:15 MCV 111.7 fl (80-96) H 01/17/19 08:15 MCH 38.1 pg (25.7-33.7) H 01/17/19 08:15 MCHC 34.1 g/dl (32.0-36.0) 01/17/19 08:15 RDW 14.6 % (11.6-15.6) 01/17/19 08:15 Plt Count 60 K/MM3 (134-434) L D 01/17/19 08:15 MPV 8.4 fl (7.5-11.1) D 01/17/19 08:15 Sodium 136 mmol/L (136-145) 01/17/19 08:15 Potassium 2.6 mmol/L (3.5-5.1) L* 01/17/19 08:15 Chloride 95 mmol/L (98-107) L 01/17/19 08:15 Carbon Dioxide 31 mmol/L (21-32) 01/17/19 08:15 Anion Gap 11 MMOL/L (8-16) 01/17/19 08:15 BUN 6.5 mg/dL (7-18) L 01/17/19 08:15 Creatinine 0.7 mg/dL (0.55-1.3) 01/17/19 08:15 Est GFR (CKD-EPI)AfAm 119.58 01/17/19 08:15 Est GFR (CKD-EPI)NonAf 103.18 01/17/19 08:15 Random Glucose 152 mg/dL (74-106) H 01/17/19 08:15 Calcium 7.9 mg/dL (8.5-10.1) L 01/17/19 08:15 Total Bilirubin 1.2 mg/dL (0.2-1) H 01/17/19 08:15 AST 85 U/L (15-37) H 01/17/19 08:15 ALT 36 U/L (13-61) 01/17/19 08:15 Alkaline Phosphatase 77 U/L (45-117) 01/17/19 08:15 Total Protein 7.1 g/dl (6.4-8.2) 01/17/19 08:15 Albumin 3.7 g/dl (3.4-5.0) 01/17/19 08:15 RPR Titer Nonreactive (NONREACTIVE) 01/17/19 08:15 lab noted low K+ K+ supplement repeat K+ glucose elevation fasting glucose low Ca++ Ca++ supplement 01/17/19 11:59 Assessment: 01/17/19 12:00 alcohol withdrawal sx Plan: continue librium detox regimen
[2019-01-17] MEDS: CALCIUM 500MG/VIT-D 200 UNITS COMBO TABLET (FP) PO SCH ×2 (14:11→22:20)
[2019-01-17] MEDS: POTASSIUM CHLORIDE ORAL LIQUID 20 MEQ/15 ML PO SCH ×2 (14:12→16:26)
[2019-01-17] MEDS: THIAMINE HCL 100 MG TABLET (FP) PO SCH (22:20)
[2019-01-17] MEDS: hydrOXYzine PAMOATE 25 MG CAPSULE (FP) PO PRN (22:21)
[2019-01-18] MEDS ORDERED: chlordiazePOXIDE HCL 10 MG CAPSULE PO PRN ×2
[2019-01-18] MEDS ORDERED: chlordiazePOXIDE HCL 10 MG CAPSULE PO SCH (05:00)
[2019-01-18] MEDS: chlordiazePOXIDE HCL 10 MG CAPSULE PO SCH ×4 (05:49→22:17)
[2019-01-18] MEDS: hydrOXYzine PAMOATE 25 MG CAPSULE (FP) PO PRN ×2 (05:51→22:18)
--- NOTE | 2019-01-18 09:40 | PN ---
[facility] CIWA - CIWA Score Nausea/Vomitin-No Nausea/No Vomiting Muscle Tremors: 1-None Visible, but [place] Anxiety: 2 Agitation: 1-Slight > Activity Paroxysmal Sweats: No Perspiration Orientation: 0-Oriented Tacttile Disturbances: 0-None Auditory Disturbances: 0-None Visual Disturbances: 0-None Headache: 1-Very Mild CIWA-Ar Total Score: 5 S Progress Note (SOAP) Subjective: doing well with librium detox regimen seen by psychiatrist no medical intervention at this time acknowledge low K+ and Ca++ as well as glucose elevation discuss nutrition focused healthy lifestyle Objective: 01/18/19 09:39 Vital Signs Temperature 97.3 F L 01/18/19 09:25 Pulse Rate 94 H 01/18/19 09:25 Respiratory Rate 20 01/18/19 09:25 Blood Pressure 131/96 01/18/19 09:25 O2 Sat by Pulse Oximetry (%) Laboratory Last Values WBC 2.3 K/mm3 (4.0-10.0) L 01/17/19 08:15 RBC 2.95 M/mm3 (3.60-5.2) L 01/17/19 08:15 Hgb 11.2 GM/dL (10.7-15.3) 01/17/19 08:15 Hct 32.9 % (32.4-45.2) 01/17/19 08:15 MCV 111.7 fl (80-96) H 01/17/19 08:15 MCH 38.1 pg (25.7-33.7) H 01/17/19 08:15 MCHC 34.1 g/dl (32.0-36.0) 01/17/19 08:15 RDW 14.6 % (11.6-15.6) 01/17/19 08:15 Plt Count 60 K/MM3 (134-434) L D 01/17/19 08:15 MPV 8.4 fl (7.5-11.1) D 01/17/19 08:15 Sodium 136 mmol/L (136-145) 01/17/19 08:15 Potassium 2.6 mmol/L (3.5-5.1) L* 01/17/19 08:15 Chloride 95 mmol/L (98-107) L 01/17/19 08:15 Carbon Dioxide 31 mmol/L (21-32) 01/17/19 08:15 Anion Gap 11 MMOL/L (8-16) 01/17/19 08:15 BUN 6.5 mg/dL (7-18) L 01/17/19 08:15 Creatinine 0.7 mg/dL (0.55-1.3) 01/17/19 08:15 Est GFR (CKD-EPI)AfAm 119.58 01/17/19 08:15 Est GFR (CKD-EPI)NonAf 103.18 01/17/19 08:15 Random Glucose 152 mg/dL (74-106) H 01/17/19 08:15 Calcium 7.9 mg/dL (8.5-10.1) L 01/17/19 08:15 Total Bilirubin 1.2 mg/dL (0.2-1) H 01/17/19 08:15 AST 85 U/L (15-37) H 01/17/19 08:15 ALT 36 U/L (13-61) 01/17/19 08:15 Alkaline Phosphatase 77 U/L (45-117) 01/17/19 08:15 Total Protein 7.1 g/dl (6.4-8.2) 01/17/19 08:15 Albumin 3.7 g/dl (3.4-5.0) 01/17/19 08:15 RPR Titer Nonreactive (NONREACTIVE) 01/17/19 08:15 01/18/19 09:39 lab noted K+ fasting glucose pendint Assessment: 01/18/19 09:40 alcohol withdrawal sx Plan: continue librium detox regimen
[2019-01-18] MEDS ORDERED: POTASSIUM CHLORIDE TABS 20 MEQ TABLET.ER (FP) PO SCH (10:00)
[2019-01-18 10:04] LABS: POTASSIUM 3.5 mmol/L (3.5-5.1)
[2019-01-18] MEDS: CALCIUM 500MG/VIT-D 200 UNITS COMBO TABLET (FP) PO SCH ×2 (10:12→22:17)
[2019-01-18] MEDS: METHOCARBAMOL 500 MG TABLET PO PRN ×2 (10:12→17:08)
[2019-01-18] MEDS: PRENATAL VITAMINS W/ FOLIC ACID TABLET (FP) PO SCH (10:13)
[2019-01-18] MEDS: amLODIPine BESYLATE 10 MG TABLET (FP) PO SCH (10:13)
[2019-01-18] MEDS ORDERED: POTASSIUM CHLORIDE TABS 20 MEQ TABLET.ER (FP) PO ONE (22:00)
[2019-01-18] MEDS: THIAMINE HCL 100 MG TABLET (FP) PO SCH (22:17)
[2019-01-19] MEDS ORDERED: chlordiazePOXIDE HCL 10 MG CAPSULE PO SCH (05:00)
[2019-01-19] MEDS ORDERED: chlordiazePOXIDE HCL 10 MG CAPSULE PO ONE (05:00)
[2019-01-19] MEDS: METHOCARBAMOL 500 MG TABLET PO PRN (05:52)
[2019-01-19 09:22] VITALS: BP 115/84; PULSE 120; TEMP 98.4
--- NOTE | 2019-01-19 18:03 | DS ---
[facility] Detox Discharge Summary Admission Date: 01/16/19 Discharge Date: 01/19/19 - History Present History: Alcohol Dependence, Cannabis Dependence Additional Comments: PATIENT ELECTING TO GO HOME. PATIENT GIVEN REFERRAL TO [facility] ([place]). PATIENT WAS DISCHARGED FROM DETOX UNIT IN STABLE MEDICAL CONDITION. Pertinent Past History: History Of Asthma, History Of Anemia, History Of Seizures, History Of Depression , Elevated Blood Pressure Reading, Leukopenia, Thrombocytopenia, Elevated AST Level, Hypocalcemia, Hypokalemia (Resolved while admitted on Detox Unit). - Physical Exam Results Vital Signs: Vital Signs Temperature 98.4 F 01/19/19 09:21 Pulse Rate 120 H 01/19/19 09:21 Respiratory Rate 16 01/19/19 09:21 Blood Pressure 115/84 01/19/19 09:21 O2 Sat by Pulse Oximetry (%) Pertinent Admission Physical Exam Findings: WITHDRAWAL SYMPTOMS. Laboratory Tests 01/17/19 01/17/19 01/17/19 08:15 08:15 08:15 WBC 2.3 L RBC 2.95 L Hgb 11.2 Hct 32.9 MCV 111.7 H MCH 38.1 H MCHC 34.1 RDW 14.6 Plt Count 60 L D MPV 8.4 D Sodium 136 Potassium 2.6 L* Chloride 95 L Carbon Dioxide 31 Anion Gap 11 BUN 6.5 L Creatinine 0.7 Est GFR (CKD-EPI)AfAm 119.58 Est GFR (CKD-EPI)NonAf 103.18 Random Glucose 152 H Fasting Glucose Calcium 7.9 L Total Bilirubin 1.2 H AST 85 H ALT 36 Alkaline Phosphatase 77 Total Protein 7.1 Albumin 3.7 RPR Titer Nonreactive 01/18/19 08:15 WBC RBC Hgb Hct MCV MCH MCHC RDW Plt Count MPV Sodium Potassium 3.5 Chloride Carbon Dioxide Anion Gap BUN Creatinine Est GFR (CKD-EPI)AfAm Est GFR (CKD-EPI)NonAf Random Glucose Fasting Glucose 88 Calcium Total Bilirubin AST ALT Alkaline Phosphatase Total Protein Albumin RPR Titer LABS NOTED. - Treatment Hospital Course: Detox Protocol Followed, Detoxed Safely, Responded well, Discharged Condition Good Patient has Accepted a Rehab Referral to: PATIENT REFERRED TO [facility] ([place], [place]) - Medication Discharge Medications: Ambulatory Orders NK [No Known Home Medication] 08/24/18 - Diagnosis (1) Alcohol dependence with intoxication, uncomplicated Status: Acute (2) Elevated blood pressure reading Status: Acute (3) Cannabis dependence, uncomplicated Status: Chronic (4) Alcohol related seizure Status: Resolved - AMA Did Patient Leave Against Medical Advice: No [facility] CIWA - CIWA Score Nausea/Vomitin-No Nausea/No Vomiting Muscle Tremors: None Anxiety: 1-Mildly Anxious Agitation: 1-Slight > Activity Paroxysmal Sweats: No Perspiration Orientation: 0-Oriented Tacttile Disturbances: 0-None Auditory Disturbances: 0-None Visual Disturbances: 0-None Headache: 0-None Present CIWA-Ar Total Score: 2
[2019-01-20] MEDS ORDERED: chlordiazePOXIDE HCL 10 MG CAPSULE PO ONE (05:00)
== END 2019-01-19 08:47 | disposition home or self-care (01) | DRG 775 ==
LOC: YASAS 18:09 → Y3N 01-16 03:47
PROVIDERS: ADMIT Allergy & Immunology; ATTEND Allergy & Immunology
PROC: HZ2ZZZZ Detoxification Services for Substance Abuse Treatment (ICD-10-PCS; principal; 2019-01-16)
DX: F10.230 Alcohol dependence with withdrawal, uncomplicated (principal); F12.20 Cannabis dependence, uncomplicated; F32.9 Major depressive disorder, single episode, unspecified; D64.9 Anemia, unspecified; J45.998 Other asthma; E87.6 Hypokalemia; E83.51 Hypocalcemia; R03.0 Elevated blood-pressure reading, without diagnosis of hypertension; Z86.69 Personal history of other diseases of the nervous system and sense organs; Z88.1 Allergy status to other antibiotic agents
CPT/HCPCS: 36415; 80053; 82947; 84132; 85027; 86593; J0735; Q2036

== ENCOUNTER 2019-01-15 20:44 | Emergency (ER) | payer OTHER ==
[2019-01-15] MEDS ORDERED: FOLIC ACID INJECTION - 1 MG, THIAMINE HCL 100 MG, MULTIVIT INJECTION ADULT 10 ML in SOD... IVPB ONE (21:11)
--- NOTE | 2019-01-15 21:11 | PDOC ---
History of Present Illness - General Chief Complaint: Blood Pressure Problem Stated Complaint: ETOH Intoxication w/ elevated BP Time Seen by Provider: 01/15/19 20:49 - History of Present Illness Initial Comments: 01/15/19 21:21 Pt is a 48 y/o F with a significant PMH of alcohol abuse, ADHD, seizures 2/2 alcohol withdrawal, and HTN who presents to our ED from [facility] due to elevated blood pressure and blood alcohol content. Pt endorses that she checked herself into rehab earlier today. Pt states that her blood pressure was reportedly elevated on routine screening at [facility] and was subsequently sent to our ED; BP was 170s systolic. Per [facility] records, pt's blood alcohol content was 387. Pt endorses consuming 5-6 "shots" of vodka daily. Last drink was yesterday after around 4 pm. Endorses vomiting. Denies chest pain or shortness of breath. 01/15/19 21:24 01/15/19 22:39 01/15/19 23:31 Past History - Past Medical History Allergies/Adverse Reactions: Allergies Allergy/AdvReac Type Severity Reaction Status Date / Time clarithromycin [From Biaxin] Allergy Verified 09/04/17 15:26 Home Medications: Ambulatory Orders NK [No Known Home Medication] 08/24/18 Anemia: Yes (no iron) Asthma: Yes Cancer: No Cardiac Disorders: No CVA: No COPD: No CHF: No Dementia: No Diabetes: No GI Disorders: No Disorders: No HTN: No Hypercholesterolemia: No Kidney Stones: No Liver Disease: No Seizures: Yes Thyroid Disease: No - Surgical History Abdominal Surgery: Yes (ectopic rght in 1992 at [facility]) Appendectomy: No Cardiac Surgery: No Cholecystectomy: No Lung Surgery: No Neurologic Surgery: No Orthopedic Surgery: No - Reproductive History PID: No - Immunization History Immunization Up to Date: Yes - Psycho Social/Smoking Cessation Hx Smoking Status: No Smoking History: Never smoked Have you smoked in the past 12 months: No Number of Cigarettes Smoked Daily: 1 If you are a former smoker, when did you quit?: 5 years ago. Information on smoking cessation initiated: No 'Breaking Loose' booklet given: 01/15/19 Hx Alcohol Use: Yes Drug/Substance Use Hx: No Substance Use Type: Alcohol, Marijuana Hx Substance Use Treatment: Yes (detox, rehab, sober housing) Review of Systems - Review of Systems HEENTM: No: Blurred Vision, Double Vision Respiratory: No: Shortness of Breath Cardiac (ROS): No: Chest Pain Neurological: No: Headache *Physical Exam - Vital Signs Last Vital Signs Temp Pulse Resp BP Pulse Ox 99.5 F 136 H 20 151/93 99 01/15/19 21:03 01/15/19 21:03 01/15/19 21:03 01/15/19 21:03 01/15/19 21:03 - Physical Exam Comments: 01/15/19 21:25 Mild Distress, Anxious, no hand tremors appreciated No scleral icterus, no sublingual jaundice Tachycardic S1S2 CTA b/l NDNT No CCE ED Treatment Course - LABORATORY CBC & Chemistry Diagram: 01/15/19 21:20 01/15/19 21:20 Medical Decision Making - Medical Decision Making 01/15/19 21:28 48 y/o F presents to our ED presenting for uncontrolled HTN likely 2/2 alcohol abuse. will order CBC w/ diff, BMP, Alcohol level, urine toxicology, banana bag, librium 01/15/19 21:29 01/15/19 22:06 Upon further examination, pt appears to have aniscoria. Will order Serum and then Head CT w/o contrast. 01/15/19 22:17 LACY 397 01/15/19 22:19 Potassium 3.2, will administer kdur 40 po once 01/15/19 23:[address] negative for any acute intracranial pathology. Will place page out to Neurology regarding aniscoria. 01/15/19 23:[address] Moreno, Neurologist. Pt neurologically clear to be transferred back to [facility] in light of negative Head CT. Aniscoria may be non- pathological. Discharge - Discharge Information Problems reviewed: Yes Clinical Impression/Diagnosis: Alcohol abuse Condition: Stable Disposition: HOME - Admission No - Follow up/Referral - Patient Discharge Instructions Patient Printed Discharge Instructions: DI for High Blood Pressure, DI for Alcohol Abuse, DI for Drug or Alcohol Withdrawal Additional Instructions: You are being discharged back to [facility] for rehab. Please follow up with your primary care doctor this week as you were found to have some abnormal blood counts including low platelets. Please return to the ED if you experience any signs of symptoms of alcohol withdrawal including but not limited to palpitations, chest pain, shortness of breath, seizures,or any other abnormal symptoms. - Post Discharge Activity CIWA Score Nausea/Vomitin-Mild Nausea/No Vomiting Muscle Tremors: None Anxiety: 4-Mod. Anxious/Guarded Agitation: 1-Slight > Activity Paroxysmal Sweats: No Perspiration Orientation: 0-Oriented Tacttile Disturbances: 0-None Auditory Disturbances: 1-Very Mild Visual Disturbances: 0-None - Admission Criteria OASAS Guidelines: Admission for Medically Managed Detox: Requires at least one of the followin. CIWA greater than 12 2. Seizures within the past 24 hours 3. Delirium tremens within the past 24 hours 4. Hallucinations within the past 24 hours 5. Acute intervention needed for co occurring medical disorder 6. Acute intervention needed for co occurring psychiatric disorder 7. Severe withdrawal that cannot be handled at a lower level of care (continued vomiting, continued diarrhea, abnormal vital signs) requiring intravenous medication and/or fluids 8.
[2019-01-15] MEDS ORDERED: chlordiazePOXIDE HCL 25 MG CAPSULE PO ONE (21:13)
[2019-01-15] MEDS ORDERED: chlordiazePOXIDE HCL 25 MG CAPSULE ONE (21:24)
[2019-01-15 21:29] LABS: BASO % 2.6 % (0-2.0); EOS % 2.2 % (0-4.5); HEMATOCRIT 35.6 % (32.4-45.2); HEMOGLOBIN 12.1 GM/dL (10.7-15.3); LYMPH % 48.9 % (8-40); MCH 37.5 pg (25.7-33.7); MCHC 34.1 g/dl (32.0-36.0); MEAN CELL VOLUME 109.9 fl (80-96); MEAN PLT VOLUME 7.6 fl (7.5-11.1); MONO % 5.9 % (3.8-10.2); NEUT % 40.4 % (42.8-82.8); PLATELET COUNT 88 K/MM3 (134-434); RBC 3.24 M/mm3 (3.60-5.2); RDW 14.4 % (11.6-15.6); WHITE BLOOD COUNT 4.7 K/mm3 (4.0-10.0)
[2019-01-15 21:33] VITALS: TEMP 99.5; BMI 40.3
[2019-01-15 22:10] LABS: BLOOD UREA NITROGEN 10.4 mg/dL (7-18); CREATININE 0.7 mg/dL (0.55-1.3); POTASSIUM 3.2 mmol/L (3.5-5.1)
[2019-01-15] MEDS ORDERED: POTASSIUM CHLORIDE TABS 20 MEQ TABLET.ER (FP) PO ONE (22:19)
[2019-01-15] MEDS ORDERED: POTASSIUM CHLORIDE ORAL LIQUID 20 MEQ/15 ML ONE (22:28)
--- NOTE | 2019-01-15 23:02 | PDOC ---
Attending Attestation - Resident Resident Name: Padilla Villatoro - ED Attending Attestation I have performed the following: I have examined & evaluated the patient, The case was reviewed & discussed with the resident, I agree w/resident's findings & plan - HPI HPI: 01/15/19 23:56 see resident hpi - Physicial Exam PE: 01/15/19 23:57 agree with resident exam - Medical Decision Making 01/15/19 23:57 48-year-old female sent in from rehab for somnolence Patient found to have elevated blood alcohol level CT scan of the brain showed no acute abnormalities Patient's blood pressure has decreased, Librium 50 mg p.o. given in the emergency department She is currently awake alert in no acute distress with no additional medical complaints [facility] the rehab facility has agreed to accept her back and does have a bed waiting
[2019-01-15 23:22] VITALS: PULSE 120
[2019-01-15 23:34] LABS: ANISOCYTOSIS 1+; MACROCYTOSIS 1+; PLATELET ESTIMATE DECREASED
--- NOTE | 2019-01-16 01:20 | PDOC ---
*Physical Exam - Vital Signs Last Vital Signs Temp Pulse Resp BP Pulse Ox 99.5 F 120 H 18 141/98 98 01/15/19 21:03 01/15/19 23:22 01/15/19 23:22 01/15/19 23:22 01/15/19 23:22 ED Treatment Course - LABORATORY CBC & Chemistry Diagram: 01/15/19 21:20 01/15/19 21:20 - ADDITIONAL ORDERS Additional order review: Laboratory Results 01/15/19 01/15/19 22:10 21:20 Sodium 141 Potassium 3.2 L Chloride 95 L Carbon Dioxide 28 Anion Gap 17 H BUN 10.4 Creatinine 0.7 Est GFR (CKD-EPI)AfAm 119.58 Est GFR (CKD-EPI)NonAf 103.18 Random Glucose 89 Calcium 8.0 L Serum , Qual Negative Alcohol, Quantitative 397.9 H 01/15/19 21:20 RBC 3.24 L MCV 109.9 H MCHC 34.1 RDW 14.4 D MPV 7.6 Neutrophils % 40.4 L D Lymphocytes % 48.9 H Monocytes % 5.9 Eosinophils % 2.2 Basophils % 2.6 H - Medications Given in the ED: ED Medications Discontinued Medications Generic Name Dose Route Start Last Admin Trade Name Freq PRN Reason Stop Dose Admin Chlordiazepoxide HCl 50 mg 01/15/19 21:13 01/15/19 21:25 Librium - PO 01/15/19 21:14 50 mg ONCE ONE Administration Potassium Chloride 40 meq 01/15/19 22:19 01/15/19 23:09 K-Dur - PO 01/15/19 22:20 40 meq ONCE ONE Administration Medical Decision Making - Medical Decision Making 01/16/19 01:19 Patient signout taken from Dr. Villatoro. Patient is a 48 yo female w/ pmh of alcohol abuse, ADHD, seizures 2/2 alcohol withdrawal, and HTN who presents from [facility] for evaluation of elevated BP and blood alcohol content. Patient well appearing upon arrival to this ED; was noted to have asymptomatic anisacoria. Patient evaluated w/ Head CT for acute intracranial process w/out acute findings. Discussed with neurology who believe she is safe for discharge back to [facility]. Patient EKG significant for "accelerated junctional rhythm" due to p-waves close to T-waves however clear p-waves appreciated on EKG and non- concerning. Patient slightly tachycardic likely secondary to dehydration. Patient will proceed to [facility] for further detox. Discharge - Discharge Information Problems reviewed: Yes Clinical Impression/Diagnosis: Alcohol abuse Condition: Stable Disposition: HOME - Follow up/Referral - Patient Discharge Instructions Patient Printed Discharge Instructions: DI for High Blood Pressure, DI for Alcohol Abuse, DI for Drug or Alcohol Withdrawal Additional Instructions: You are being discharged back to [facility] for rehab. Please follow up with your primary care doctor this week as you were found to have some abnormal blood counts including low platelets. Please return to the ED if you experience any signs of symptoms of alcohol withdrawal including but not limited to palpitations, chest pain, shortness of breath, seizures,or any other abnormal symptoms. - Post Discharge Activity
[2019-01-16 03:02] VITALS: BP 137/95
--- NOTE | 2019-01-16 12:08 | EKG ---
Test Reason : Blood Pressure : / mmHG Vent. Rate : 114 BPM Atrial Rate : 065 BPM P-R Int : 000 ms QRS Dur : 084 ms QT Int : 458 ms P-R-T Axes : 000 059 060 degrees QTc Int : 631 ms NORMAL SINUS RHYTHM LEFT VENTRICULAR HYPERTROPHY WITH REPOLARIZATION ABNORMALITY PROLONGED QT ABNORMAL ECG Confirmed by Enrique Leo MD ([id number]) on 01/16/2019 12:08:34 PM Referred By: Confirmed By:Enrique Leo MD
== END 2019-01-16 03:08 | disposition home or self-care (01) ==
LOC: JER 20:44
PROC: 3E033GC Introduction of Other Therapeutic Substance into Peripheral Vein, Percutaneous Approach (ICD-10-PCS; principal; 2019-01-15)
DX: F10.120 Alcohol abuse with intoxication, uncomplicated (principal); I10 Essential (primary) hypertension; F90.9 Attention-deficit hyperactivity disorder, unspecified type; G40.509 Epileptic seizures related to external causes, not intractable, without status epilepticus; E87.6 Hypokalemia; D50.9 Iron deficiency anemia, unspecified; Y90.8 Blood alcohol level of 240 mg/100 ml or more; Z88.1 Allergy status to other antibiotic agents
CPT/HCPCS: 36415; 70450-TC; 80048; 80307; 84703; 85025; 93005; 93010; 96365; 96366; 99282-25; J7030

== ENCOUNTER 2023-11-25 14:49 | Emergency (ER) | payer OTHER ==
[2023-11-25 16:45] VITALS: BP 132/74; PULSE 79; RESP 18; TEMP 98.7; BMI 27.1
== END 2023-11-25 16:51 | disposition home or self-care (01) ==
LOC: FER 14:49
DX: L98.9 Disorder of the skin and subcutaneous tissue, unspecified (principal)
CPT/HCPCS: 99283-25